=== PATIENT | male | born 1955 | race Caucasian/White ===

== ENCOUNTER → 2016-08-07 | Outpatient (CLI) | payer SELFPAY ==
--- NOTE | 2016-08-07 16:11 | US ---
ULTRASOUND EXAMINATION OF the left lower extremity WITH DOPPLER HISTORY: Swelling FINDINGS: Examination of the left leg was performed from the groin to the calf region. All visualized segment s including common femoral, proximal greater saphenous, superficial femoral, popliteal and calf vein s appear patent with good compressibility and augmentation. There is no evidence of deep vein throm bosis. IMPRESSION: No evidence of a DVT.
== END ==
LOC: MW.US 14:29
PROVIDERS: ATTEND Student in an Organized Health Care Education/Training Program
DX: R22.42 Localized swelling, mass and lump, left lower limb (principal); M79.662 Pain in left lower leg
CPT/HCPCS: 93971-26-LT; 93971-LT

== ENCOUNTER 2016-12-24 09:39 | Inpatient (IN) | payer MEDICAID ==
--- NOTE | 2016-12-24 09:50 | EDM.PDOC ---
ED HPI GENERAL MEDICAL PROBLEM - General Chief Complaint: Respiratory Problem Stated Complaint: CHEST PAIN Time Seen by Provider: 12/24/16 09:49 Source of Information: Reports: Patient - History of Present Illness INITIAL COMMENTS - FREE TEXT/NARRATIVE: HISTORY AND PHYSICAL: History of present illness: []Patient presents with cough shortness of breath and blood-tinged sputum worsening over the last couple of days, he has been camping sleeping on the ground and [place] No fever nausea vomiting his diaphoretic with chest pain no radiation to arm neck or jaw Review of systems: As per history of present illness and below otherwise all systems reviewed and negative. Past medical history: As per history of present illness and as reviewed below otherwise noncontributory. Surgical history: As per history of present illness and as reviewed below otherwise noncontributory. Social history: No reported history of drug or alcohol abuse. Family history: As per history of present illness and as reviewed below otherwise noncontributory. Physical exam: HEENT: Atraumatic, normocephalic, pupils reactive, negative for conjunctival pallor or scleral icterus, mucous membranes moist, throat clear, neck supple, nontender, trachea midline. Lungs: Clear to auscultation, breath sounds equal bilaterally, chest nontender. Heart: S1S2, regular, negative for clicks, rubs, or JVD. Abdomen: Soft, nondistended, nontender. Negative for masses or hepatosplenomegaly. Negative for costovertebral tenderness. Pelvis: Stable nontender. Genitourinary: Deferred. Rectal: Deferred. Extremities: Atraumatic, negative for cords or calf pain. Neurovascular unremarkable. Neuro: Awake, alert, oriented. Cranial nerves II through XII unremarkable. Cerebellum unremarkable. Motor and sensory unremarkable throughout. Exam nonfocal. Diagnostics: []Lab as below EKG Chest 1 view Therapeutics: []Normal saline 1 25 mL per hour Nitroglycerin 3 Impression: Hypoxia--84% on room air []Hemoptysis Hypertensive emergency Chest pain resolved Right lower lobe pneumonia Patient admitted to [facility] inpatient Definitive disposition and diagnosis as appropriate pending reevaluation and review of above. lung Pain Score (Numeric/FACES): 5 - Related Data Allergies Allergy/AdvReac Type Severity Reaction Status Date / Time No Known Allergies Allergy Verified 06/01/16 09:45 Home Meds: Home Meds . [No Known Home Meds] 06/01/16 [History] Past Medical History HEENT History: Reports: None Cardiovascular History: Reports: Heart Murmur, High Cholesterol, Hypertension Respiratory History: Reports: None Gastrointestinal History: Reports: None Genitourinary History: Reports: None Musculoskeletal History: Reports: Back Pain, Chronic Neurological History: Reports: None Psychiatric History: Reports: None Endocrine/Metabolic History: Reports: None Hematologic History: Reports: None Immunologic History: Reports: None Oncologic (Cancer) History: Reports: None Dermatologic History: Reports: None - Infectious Disease History Infectious Disease History: Reports: Chicken Pox, Measles - Past Surgical History Musculoskeletal Surgical History: Reports: Other (See Below) Social & Family History - Family History Family Medical History: Noncontributory - Tobacco Use Smoking Status *Q: Never Smoker Second Hand Smoke Exposure: Yes - Caffeine Use Caffeine Use: Reports: None - Recreational Drug Use Recreational Drug Use: No ED ROS GENERAL - Review of Systems Review Of Systems: ROS reveals no pertinent complaints other than HPI. ED EXAM, GENERAL - Physical Exam Exam: See Below Course - Vital Signs Last Recorded V/S: Last Vital Signs Temp 35.8 C 12/24/16 09:50 Pulse 128 H 12/24/16 09:50 Resp 24 H 12/24/16 09:50 BP 187/106 H 12/24/16 10:45 Pulse Ox 86 L 12/24/16 09:50 - Orders/Labs/Meds Orders: Active Orders 24 hr Category Date Time Status EKG Documentation Completion [RC] STAT Care 12/24/16 09:40 Active EKG Documentation Completion [RC] STAT Care 12/24/16 11:04 Ordered RT Aerosol Therapy [RC] ASDIRECTED Care 12/24/16 09:53 Active CULTURE BLOOD [BC] Stat Lab 12/24/16 10:43 Ordered CULTURE BLOOD [BC] Stat Lab 12/24/16 10:43 Ordered LACTIC ACID,WHOLE BLOOD [BG] Stat Lab 12/24/16 11:01 Ordered UA W/MICROSCOPIC [URIN] Stat Lab 12/24/16 09:48 Uncollected Levofloxacin/Dextrose 5%-Water [Levaquin in D5W 750 MG/ Med 12/24/16 10:42 Active 150 ML] 750 mg Premix Bag 1 bag IV ONETIME Sodium Chloride 0.9% [Normal Saline] 1,000 ml Med 12/24/16 10:00 Active IV STAT Blood Culture x2 Reflex Set [OM.PC] Stat Oth 12/24/16 10:43 Ordered Medication Orders Sodium Chloride (Normal Saline) 1,000 mls @ 125 mls/hr IV STAT CHECO Last Admin: 12/24/16 10:22 Dose: 125 mls/hr Levofloxacin/Dextrose 750 mg/ (Premix) 150 mls @ 100 mls/hr IV ONETIME ONE Stop: 12/24/16 12:11 Last Admin: 12/24/16 10:48 Dose: 100 mls/hr Labs: Laboratory Tests 12/24/16 12/24/16 12/24/16 Range/Units 10:03 10:03 10:03 WBC 12.57 H (4.0-11.0) K/uL RBC 5.29 (4.50-5.90) M/uL Hgb 17.1 H (13.0-17.0) g/dL Hct 48.1 (38.0-50.0) % MCV 90.9 (80.0-98.0) fL MCH 32.3 H (27.0-32.0) pg MCHC 35.6 (31.0-37.0) g/dL RDW Std Deviation 43.7 (28.0-62.0) fl RDW Coeff of Julian 13 (11.0-15.0) % Plt Count 319 (150-400) K/uL MPV 9.30 (7.40-12.00) fL Neut % (Auto) 70.9 (48.0-80.0) % Lymph % (Auto) 20.3 (16.0-40.0) % [place] % (Auto) 7.2 (0.0-15.0) % Eos % (Auto) 1.0 (0.0-7.0) % Baso % (Auto) 0.6 (0.0-1.5) % Neut # (Auto) 8.9 H (1.4-5.7) K/uL Lymph # (Auto) 2.6 H (0.6-2.4) K/uL [place] # (Auto) 0.9 H (0.0-0.8) K/uL Eos # (Auto) 0.1 (0.0-0.7) K/uL Baso # (Auto) 0.1 (0.0-0.1) K/uL Nucleated RBC % 0.0 /100WBC Nucleated RBCs # 0 K/uL INR 0.98 (0.86-1.11) ABG pH (7.35-7.45) ABG pCO2 (35-45) mmHG ABG pO2 (75-100) mmHG ABG HCO3 (22-26) mEq/L ABG Total CO2 ABG Base Excess (-2.0-2.0) Sodium 141 (136-146) mmol/L Potassium 3.4 L (3.5-5.1) mmol/L Chloride 104 (98-110) mmol/L Carbon Dioxide 24 (21-31) mmol/L BUN 6 (6.0-23.0) mg/dL Creatinine 0.9 (0.6-1.5) mg/dL Est Cr Clr Drug Dosing 92.96 mL/min Estimated GFR (MDRD) > 60.0 ml/min Glucose 130 H (60-110) mg/dL Calcium 9.3 (8.8-10.8) mg/dL Total Bilirubin 0.4 (0.1-1.5) mg/dL AST 83 H (5-40) IU/L ALT 82 H (8-54) IU/L Alkaline Phosphatase 103 (40-150) Creatine Kinase 181 (9-236) IU/L CK-MB (CK-2) 2.2 (0-6.6) ng/ml Troponin I (0.0-0.29) NG/ML Total Protein 7.9 (6.0-8.0) g/dL Albumin 4.0 (3.4-4.8) g/dL Globulin 3.9 H (2.0-3.5) g/dL Albumin/Globulin Ratio 1.0 L (1.3-2.8) 12/24/16 12/24/16 Range/Units 10:03 10:13 WBC (4.0-11.0) K/uL RBC (4.50-5.90) M/uL Hgb (13.0-17.0) g/dL Hct (38.0-50.0) % MCV (80.0-98.0) fL MCH (27.0-32.0) pg MCHC (31.0-37.0) g/dL RDW Std Deviation (28.0-62.0) fl RDW Coeff of Julian (11.0-15.0) % Plt Count (150-400) K/uL MPV (7.40-12.00) fL Neut % (Auto) (48.0-80.0) % Lymph % (Auto) (16.0-40.0) % [place] % (Auto) (0.0-15.0) % Eos % (Auto) (0.0-7.0) % Baso % (Auto) (0.0-1.5) % Neut # (Auto) (1.4-5.7) K/uL Lymph # (Auto) (0.6-2.4) K/uL [place] # (Auto) (0.0-0.8) K/uL Eos # (Auto) (0.0-0.7) K/uL Baso # (Auto) (0.0-0.1) K/uL Nucleated RBC % /100WBC Nucleated RBCs # K/uL INR (0.86-1.11) ABG pH 7.357 (7.35-7.45) ABG pCO2 43 (35-45) mmHG ABG pO2 74 L (75-100) mmHG ABG HCO3 24 (22-26) mEq/L ABG Total CO2 21.0 ABG Base Excess -1.3 (-2.0-2.0) Sodium (136-146) mmol/L Potassium (3.5-5.1) mmol/L Chloride (98-110) mmol/L Carbon Dioxide (21-31) mmol/L BUN (6.0-23.0) mg/dL Creatinine (0.6-1.5) mg/dL Est Cr Clr Drug Dosing mL/min Estimated GFR (MDRD) ml/min Glucose (60-110) mg/dL Calcium (8.8-10.8) mg/dL Total Bilirubin (0.1-1.5) mg/dL AST (5-40) IU/L ALT (8-54) IU/L Alkaline Phosphatase (40-150) Creatine Kinase (9-236) IU/L CK-MB (CK-2) (0-6.6) ng/ml Troponin I < 0.10 (0.0-0.29) NG/ML Total Protein (6.0-8.0) g/dL Albumin (3.4-4.8) g/dL Globulin (2.0-3.5) g/dL Albumin/Globulin Ratio (1.3-2.8) Meds: Medications Generic Name Dose Route Start Last Admin Trade Name Freq PRN Reason Stop Dose Admin Sodium Chloride 1,000 mls @ 125 mls/hr 12/24/16 10:00 12/24/16 10:22 Normal Saline IV 125 mls/hr STAT CHECO Administration Levofloxacin/Dextrose 750 mg/ 150 mls @ 100 mls/hr 12/24/16 10:42 12/24/16 10 :48 Premix IV 12/24/16 12:11 100 mls/hr ONETIME ONE Administration Discontinued Medications Generic Name Dose Route Start Last Admin Trade Name Mitchelq PRN Reason Stop Dose Admin Albuterol/Ipratropium 3 ml 12/24/16 09:53 12/24/16 10:14 Duoneb 3.0-0.5 Mg/3 Ml NEB 12/24/16 09:54 3 ml ONETIME ONE Administration Methylprednisolone Sodium Succinate 125 mg 12/24/16 09:53 12/24/16 10:14 Solu-Medrol IVPUSH 12/24/16 09:54 125 mg ONETIME ONE Administration Nitroglycerin 0.4 mg 12/24/16 10:02 12/24/16 10:45 Nitrostat SL 12/24/16 10:13 0.4 mg Q5M PRN Administration Chest Pain Departure - Departure Time of Disposition: 11:07 Disposition: Admitted As Inpatient 67 Condition: Poor Clinical Impression: Hypoxia, Pneumonia - Discharge Information Forms: ED Department Discharge - My Orders Last 24 Hours: My Active Orders 12/24/16 09:40 EKG Documentation Completion [RC] STAT 12/24/16 09:48 UA W/MICROSCOPIC [URIN] Stat 12/24/16 09:53 RT Aerosol Therapy [RC] ASDIRECTED 12/24/16 10:00 Sodium Chloride 0.9% [Normal Saline] 1,000 ml IV STAT 12/24/16 10:42 Levofloxacin/Dextrose 5%-Water [Levaquin in D5W 750 MG/150 ML] 750 mg Premix Bag 1 bag IV ONETIME 12/24/16 10:43 CULTURE BLOOD [BC] Stat CULTURE BLOOD [BC] Stat Blood Culture x2 Reflex Set [OM.PC] Stat 12/24/16 11:01 LACTIC ACID,WHOLE BLOOD [BG] Stat 12/24/16 11:04 EKG Documentation Completion [RC] STAT - Assessment/Plan Last 24 Hours: My Active Orders 12/24/16 09:40 EKG Documentation Completion [RC] STAT 12/24/16 09:48 UA W/MICROSCOPIC [URIN] Stat 12/24/16 09:53 RT Aerosol Therapy [RC] ASDIRECTED 12/24/16 10:00 Sodium Chloride 0.9% [Normal Saline] 1,000 ml IV STAT 12/24/16 10:42 Levofloxacin/Dextrose 5%-Water [Levaquin in D5W 750 MG/150 ML] 750 mg Premix Bag 1 bag IV ONETIME 12/24/16 10:43 CULTURE BLOOD [BC] Stat CULTURE BLOOD [BC] Stat Blood Culture x2 Reflex Set [OM.PC] Stat 12/24/16 11:01 LACTIC ACID,WHOLE BLOOD [BG] Stat 12/24/16 11:04 EKG Documentation Completion [RC] STAT
[2016-12-24] MEDS ORDERED: Albuterol/Ipratropium 3.0-0.5 MG/3 ML Neb Soln NEB ONE (09:53)
[2016-12-24] MEDS ORDERED: methylPREDNISolone Sodium Succinate 125 MG/2 ML SDV IVPUSH ONE (09:53)
[2016-12-24] MEDS ORDERED: Sodium Chloride 0.9% 1,000 ML IV SCH ×2 (10:00→22:15)
[2016-12-24] MEDS: Nitroglycerin 0.4 MG Tab.SL SL PRN ×2 (10:21→10:45)
[2016-12-24 10:40] LABS: CHLORIDE,CL 104 mmol/L (98-110); SODIUM,NA 141 mmol/L (136-146)
[2016-12-24] MEDS ORDERED: Levofloxacin/Dextrose 5%-Water 750 MG in Premix Bag 1 BAG IV ONE (10:42)
--- NOTE | 2016-12-24 11:02 | CR ---
Single view portable chest There is myocardium equally. There is a small left pleural effusion. There is abnormal interstitial density in lower two thirds of both lungs. The findings are consistent with acute congestive heart f ailure. Impression: Acute congestive heart failure with interstitial edema
[2016-12-24] MEDS ORDERED: Ondansetron 4 MG Tab.DIS PO PRN (11:50)
[2016-12-24] MEDS ORDERED: Acetaminophen 325 MG Tab PO PRN (11:50)
[2016-12-24] MEDS ORDERED: Albuterol 0.083% 2.5 MG/3 ML Neb Soln NEB PRN (11:50)
[2016-12-24] MEDS ORDERED: LORazepam 2 MG/ML MDV IVPUSH ONE (11:58)
[2016-12-24] MEDS ORDERED: Lisinopril 5 MG Tab PO SCH (12:00)
[2016-12-24] MEDS ORDERED: Furosemide 40 MG/4 ML VIAL IVPUSH ONE (12:15)
[2016-12-24] MEDS ORDERED: Magnesium Sulfate/Water 2 GM in Premix Bag 1 BAG IV ONE (12:33)
[2016-12-24] MEDS: Folic Acid 1 MG Tab PO SCH (13:37)
[2016-12-24] MEDS: Albuterol 0.083% 2.5 MG/3 ML Neb Soln NEB SCH ×3 (13:38→23:40)
[2016-12-24] MEDS: Nicotine 21 MG/24 Hr Patch TRDERM SCH (13:45)
[2016-12-24] MEDS: Levofloxacin/Dextrose 5%-Water 750 MG in Premix Bag 1 BAG IV SCH (13:55)
[2016-12-24] MEDS ORDERED: LORazepam 2 MG/ML MDV IVPUSH PRN (13:59)
[2016-12-24] MEDS ORDERED: Potassium Chloride 20 MEQ Tab.ER PO ONE (15:12)
[2016-12-24] MEDS ORDERED: Enalaprilat 1.25 MG/ML SDV IVPUSH ONE (16:25)
--- NOTE | 2016-12-24 16:54 | PCM.HP ---
H&P History of Present Illness - General Date of Service: 12/24/16 Admit Problem/Dx: Shortness of breath Source of Information: Patient History Limitations: Reports: No Limitations - History of Present Illness Initial Comments - Free Text/Narative: 61-year-old male with a medical history of hypercholesterolemia, hypertension and chronic back pain but is not taking any medications for these conditions is being admitted for worsening shortness of breath and chest pain over the last few days. patient presented to the emergency room today complaining of chest pain and was found to have a blood pressure of 238/153. He was also complaining of shortness of breath and a few episodes of hemoptysis. He states that he's been camping in [place] and believes he may have inhaled something. patient has never had prior episodes of shortness of breath or this type of chest pain. the chest pain does not radiate and is diffuse. he denies any history of gastric ulcers and denies bleeding elsewhere apart from his hemoptysis. he has been febrile but denies any nausea, vomiting, constipation, diarrhea. He also notes that his legs bilaterally appear slightly more swollen than they typically are. He was diagnosed with cellulitis a few weeks ago but is not currently taking any antibiotics. He denies any pain in his legs. Patient does smoke one pack of cigarettes a week and does drink a sixpack of beer a night. He is not on oxygen at home. He has no prior diagnosis of COPD or asthma. patient does live in [place]. ER course: Patient was started on normal saline at 125 mL/hour. He was given nitroglycerin 3 which result is chest pain and improved his blood pressure to 187/106. his oxygen saturation on room air was 84% and was placed on a nonrebreather. chest x -ray was read as showing acute congestive heart failure with interstitial edema by the radiologist. patient does have a white blood cell count and given the x- ray findings he was given a one-time dose of Levaquin to treat for possible pneumonia. He was also given a DuoNeb treatment. He was given a onetime dose of Solu-Medrol. blood cultures were obtained. White blood cell count was elevated at 12.6 and hemoglobin was 17.1. INR was within normal range at 0.98. ABG was normal apart from a PO2 of 74. urinalysis was unremarkale. Initial troponin was negative. AST and ALT were slightly elevated at 83 and 82 respectively. lactate was elevated at 2.1. EKG initially showed an acute AK but the patient is breathing very heavily and appeared to be in respiratory distress. Repeat EKG shows left bundle branch block. lung Pain Score (Numeric/FACES): 0 - Related Data Allergies/Adverse Reactions: Allergies Allergy/AdvReac Type Severity Reaction Status Date / Time No Known Allergies Allergy Verified 06/01/16 09:45 Home Medications: Home Meds . [No Known Home Meds] 06/01/16 [History] Past Medical History HEENT History: Reports: None Cardiovascular History: Reports: Heart Murmur, High Cholesterol, Hypertension Respiratory History: Reports: None Gastrointestinal History: Reports: Hemorrhoids Genitourinary History: Reports: None Musculoskeletal History: Reports: Back Pain, Chronic Neurological History: Reports: None Psychiatric History: Reports: None Endocrine/Metabolic History: Reports: None Hematologic History: Reports: None Immunologic History: Reports: None Oncologic (Cancer) History: Reports: None Dermatologic History: Reports: Cellulitis - Infectious Disease History Infectious Disease History: Reports: Chicken Pox, Measles - Past Surgical History GI Surgical History: Reports: Colonoscopy, Polypectomy Musculoskeletal Surgical History: Reports: Other (See Below) Social & Family History - Family History Family Medical History: Noncontributory - Tobacco Use Smoking Status *Q: Current Some Day Smoker Years of Tobacco use: 8 Packs/Tins Daily: 0 Second Hand Smoke Exposure: Yes - Caffeine Use Caffeine Use: Reports: Coffee - Alcohol Use Days Per Week of Alcohol Use: 7 Number of Drinks Per Day: 6 Total Drinks Per Week: 42 Date of Last Drink: 12/23/16 - Recreational Drug Use Recreational Drug Use: Yes Drug Use in Last 12 Months: Yes Recreational Drug Type: Reports: Marijuana/Hashish Recreational Drug Use Frequency: Weekly H&P Review of Systems - Review of Systems: Review Of Systems: See Below General: Reports: Fever, Diaphoresis HEENT: Reports: No Symptoms Pulmonary: Reports: Shortness of Breath, Cough, Hemoptysis Cardiovascular: Reports: Chest Pain, Dyspnea on Exertion, Edema ( lower eextremities bilaterally), Blood Pressure Problem Gastrointestinal: Reports: No Symptoms Genitourinary: Reports: No Symptoms Musculoskeletal: Reports: No Symptoms Skin: Reports: Diaphoresis Psychiatric: Reports: No Symptoms Neurological: Reports: No Symptoms Hematologic/Lymphatic: Reports: No Symptoms Immunologic: Reports: No Symptoms Exam - Exam Exam: See Below - Vital Signs Vital Signs: Last Vital Signs Temp 97.3 F 12/24/16 15:51 Pulse 101 H 12/24/16 15:51 Resp 22 H 12/24/16 15:51 BP 180/91 H 12/24/16 16:34 Pulse Ox 95 12/24/16 15:51 Weight: 284 lb 1.6 oz - Exam Quality Assessment: Supplemental Oxygen ( nonrebbreather), DVT Prophylaxis ( sequentiial compression devices) General: Alert, Oriented, Cooperative, Mild Distress HEENT: Conjunctiva Clear, Hearing Intact, Mucosa Moist & Dana, Nares Patent, Posterior Pharynx Clear, PERRLA Neck: Supple, Trachea Midline, 2 Lungs: Wheezing, Other ( diminishhed breath sounds bilaterally with mild wheezing appreciated in the right upper lobe. increased work of breathing appreciated.) Cardiovascular: Regular Rhythm, Tachycardia GI/Abdominal Exam: Normal Bowel Sounds, Soft, Non-Tender, No Organomegaly, No Distention, No Abnormal Bruit, No Mass Back Exam: Normal Inspection Extremities: Normal Inspection, Normal Range of Motion, Non-Tender, Normal Capillary Refill, Other ( trace edema in the lower extremities bilaterally.) Peripheral Pulses: 2+: Radial (L), Radial (R), Posterior Tibial (L), Posterior Tibial (R) Skin: Warm, Dry, Intact Neuro Extensive - Mental Status: Alert, Oriented x3, Normal Cognition Psychiatric: Alert - Patient Data Lab Results Last 24 hrs: Laboratory Results - last 24 hr 12/24/16 12/24/16 Range/Units 15:54 15:54 Lactate 2.9 H (0.20-2.00) mmol/L Troponin I < 0.10 (0.0-0.29) NG/ML Result Diagrams: 12/24/16 10:03 12/24/16 10:03 *Q Meaningful Use (ADM) - VTE *Q VTE Criteria *Q: - Stroke *Q Stroke Criteria *Q: - AMI *Q AMI Criteria *Q: - Problem List (1) Congestive heart failure SNOMED Code(s): 98893696 ICD Code: I50.9 - HEART FAILURE, UNSPECIFIED Status: Acute Current Visit : Yes (2) Hypoxia SNOMED Code(s): 117197932, 002750103 ICD Code: R09.02 - HYPOXEMIA Status: Acute Current Visit: Yes (3) Pneumonia SNOMED Code(s): 530315486 ICD Code: J18.9 - PNEUMONIA, UNSPECIFIED ORGANISM Status: Acute Current Visit: Yes Problem List Initiated/Reviewed/Updated: Yes Orders Last 24hrs: Active Orders 24 hr Category Date Time Status Antiembolic Devices [RC] PER UNIT ROUTINE Care 12/24/16 11:53 Active Height and Weight [RC] DAILY Care 12/24/16 11:50 Active Intake and Output Strict [RC] ASDIRECTED Care 12/24/16 14:50 Active Intake and Output [RC] QSHIFT Care 12/24/16 11:50 Active Notify Provider Vital Signs [RC] ASDIRECTED Care 12/24/16 11:50 Active Oxygen Therapy [RC] PRN Care 12/24/16 11:50 Active Pulse Oximetry [RC] PRN Care 12/24/16 11:50 Active RT Aerosol Therapy [RC] ASDIRECTED Care 12/24/16 11:53 Active Telemetry Monitoring [Cardiac Monitoring] [RC] Q8H Care 12/24/16 11:57 Active Up With Assistance [RC] ASDIRECTED Care 12/24/16 11:50 Active VTE/DVT Education [RC] PER UNIT ROUTINE Care 12/24/16 11:50 Active Vital Signs [RC] Q4H Care 12/24/16 11:50 Active Regular Diet [DIET] Diet 12/24/16 Breakfast Active Echo Comp wo Cont [US] Stat Exams 12/24/16 11:50 Taken CBC WITH AUTO DIFF [HEME] AM Lab 12/25/16 05:11 Ordered CBC WITH AUTO DIFF [HEME] AM Lab 12/26/16 05:11 Ordered CBC WITH AUTO DIFF [HEME] AM Lab 12/27/16 05:11 Ordered COMPREHENSIVE METABOLIC PN,CMP [CHEM] AM Lab 12/25/16 05:11 Ordered COMPREHENSIVE METABOLIC PN,CMP [CHEM] AM Lab 12/26/16 05:11 Ordered COMPREHENSIVE METABOLIC PN,CMP [CHEM] AM Lab 12/27/16 05:11 Ordered LACTIC ACID,WHOLE BLOOD [BG] Routine Lab 12/24/16 22:00 Ordered MAGNESIUM [CHEM] AM Lab 12/25/16 05:11 Ordered MAGNESIUM [CHEM] AM Lab 12/26/16 05:11 Ordered MAGNESIUM [CHEM] AM Lab 12/27/16 05:11 Ordered TROPONIN I [CHEM] Q6H Lab 12/24/16 22:00 Ordered Acetaminophen [Tylenol] Med 12/24/16 11:50 Active 650 mg PO Q4H PRN Albuterol [Proventil Neb Soln] Med 12/24/16 12:00 Active 2.5 mg NEB Q6HRRT Folic Acid Med 12/24/16 12:45 Active 1 mg PO DAILY LORazepam [Ativan] Med 12/24/16 13:59 Active See Protocol IVPUSH Q4H PRN Levofloxacin/Dextrose 5%-Water [Levaquin in D5W 750 MG/ Med 12/24/16 12:00 Active 150 ML] 750 mg Premix Bag 1 bag IV Q24H Lisinopril [Prinivil] Med 12/24/16 12:00 Active 5 mg PO DAILY Nicotine [Habitrol] Med 12/24/16 12:00 Active 21 mg TRDERM DAILY Ondansetron [Zofran ODT] Med 12/24/16 11:50 Active 4 mg PO Q4H PRN Thiamine [Vitamin B-1] Med 12/24/16 21:00 Active 100 mg PO BEDTIME methylPREDNISolone Sod Succ [Solu-MEDROL] Med 12/24/16 16:45 Active 125 mg IVPUSH Q6H Sequential Compression Device [OM.PC] Per Unit Routine Oth 12/24/16 11:50 Ordered Resuscitation Status Routine Resus Stat 12/24/16 11:50 Ordered Medication Orders Acetaminophen (Tylenol) 650 mg PO Q4H PRN PRN Reason: Pain (Mild 1-3)/fever Albuterol (Proventil Neb Soln) 2.5 mg NEB Q6HRRT [facility] Last Admin: 12/24/16 13:38 Dose: 2.5 mg Folic Acid (Folic Acid) 1 mg PO DAILY [facility] Last Admin: 12/24/16 13:37 Dose: 1 mg Levofloxacin/Dextrose 750 mg/ (Premix) 150 mls @ 100 mls/hr IV Q24H [facility] Last Admin: 12/24/16 13:55 Dose: Not Given Lisinopril (Prinivil) 5 mg PO DAILY [facility] Last Admin: 12/24/16 13:35 Dose: 5 mg Lorazepam (Ativan) 0 mg IVPUSH Q4H PRN; Protocol PRN Reason: CIWAA Methylprednisolone Sodium Succinate (Solu-Medrol) 125 mg IVPUSH Q6H [facility] Nicotine (Habitrol) 21 mg TRDERM DAILY [facility] Last Admin: 12/24/16 13:45 Dose: 21 mg Ondansetron HCl (Zofran Odt) 4 mg PO Q4H PRN PRN Reason: nausea, able to take PO Thiamine HCl (Vitamin B-1) 100 mg PO BEDTIME [facility] Assessment/Plan Comment:: 61-year-old male admitted in respiratory distress with the chief complaint of chest pain. #1. hypoxia secondary to multiple possible causes including acute CHF exacerbation , pneumonia , COPD : patient does not have any prior diagnoses of CHF or COPD. chest x-ray in the emergency room was read as acute CHF exacerbation with interstitial edema. - patient is currently requiring supplemental oxygen via nasal cannula. - he is receiving IV Levaquin for possible pneumonia versus COPD exacerbaion. patient does have an elevated white count at 12.6. - duo nebs scheduled every 2 hours. - IV methylprednisolone every 6 hours. - BNP is mildly elevated at 296. - echocardiogram is pending. - initial troponin was negative. we will trend his troponins. #2. Lactic acidosis: initial lactate was 2.1. Repeat lactate is 2.9. we will trend his lactate every 6 hours until less than 2. - Patient not currently receiving IV fluids secondary to possible CHF exacerbation as read by the radiologist on chest x-ray. - blood cultures are pending. #3. alcohol abuse: patient drinks a sixpack of beer/night. Ativan is available IV per [facility] PROTOCOL. - patient placed on thiamine and folic acid. #4. hypertension: patient's blood pressure is severely elevated with systolics greater than 200 and diastolics greater than 100. placed on by mouth lisinopril 5 mg daily. can consider IV antihypertensives as needed. #5. EKG showing left bundle branch block: initial troponin was negative. we are trending his troponins. - chest pain resolved in the ER with nitroglycerin sublingual 3. discharge: 2-4 days pending improvement.
[2016-12-24] MEDS: methylPREDNISolone Sodium Succinate 125 MG/2 ML SDV IVPUSH SCH ×2 (17:09→21:45)
[2016-12-24] MEDS: Thiamine 100 MG Tab PO SCH (21:45)
[2016-12-25] MEDS: methylPREDNISolone Sodium Succinate 125 MG/2 ML SDV IVPUSH SCH ×4 (03:55→23:23)
[2016-12-25 04:13] LABS: CHLORIDE,CL 100 mmol/L (98-110); SODIUM,NA 136 mmol/L (136-146)
[2016-12-25] MEDS ORDERED: Sodium Chloride 0.9% 500 ML IV SCH (05:30)
[2016-12-25] MEDS: Albuterol 0.083% 2.5 MG/3 ML Neb Soln NEB SCH ×4 (05:40→23:30)
[2016-12-25] MEDS: Piperacillin/Tazobactam 3.375 GM in Sodium Chloride 0.9% 50 ML IV SCH ×4 (05:41→23:36)
[2016-12-25] MEDS: Sodium Chloride 0.9% 1,000 ML IV SCH ×2 (05:44→15:39)
[2016-12-25] MEDS: Vancomycin 2 GM in Sodium Chloride 0.9% 500 ML IV SCH ×2 (06:18→18:02)
--- NOTE | 2016-12-25 09:12 | PCM.PN ---
- Review of Systems Systems Review Comment:: breathing and cough has improved. - Patient Data Vitals - Most Recent: Last Vital Signs Temp 36.4 C 12/25/16 08:00 Pulse 102 H 12/25/16 08:00 Resp 20 12/25/16 08:00 BP 181/86 H 12/25/16 08:00 Pulse Ox 97 12/25/16 08:00 Weight - Most Recent: 128.866 kg I&O - Last 24 Hours: Intake & Output 12/24/16 12/25/16 12/25/16 22:59 06:59 14:59 Intake Total 588 1600 Output Total 950 Balance 588 650 Lab Results Last 24 Hours: Laboratory Results - last 24 hr 12/24/16 12/24/16 12/24/16 Range/Units 15:54 15:54 21:40 WBC (4.0-11.0) K/uL RBC (4.50-5.90) M/uL Hgb (13.0-17.0) g/dL Hct (38.0-50.0) % MCV (80.0-98.0) fL MCH (27.0-32.0) pg MCHC (31.0-37.0) g/dL RDW Std Deviation (28.0-62.0) fl RDW Coeff of Julian (11.0-15.0) % Plt Count (150-400) K/uL MPV (7.40-12.00) fL Neut % (Auto) (48.0-80.0) % Lymph % (Auto) (16.0-40.0) % Dane % (Auto) (0.0-15.0) % Eos % (Auto) (0.0-7.0) % Baso % (Auto) (0.0-1.5) % Neut # (Auto) (1.4-5.7) K/uL Lymph # (Auto) (0.6-2.4) K/uL Dane # (Auto) (0.0-0.8) K/uL Eos # (Auto) (0.0-0.7) K/uL Baso # (Auto) (0.0-0.1) K/uL Nucleated RBC % /100WBC Nucleated RBCs # K/uL Lactate 2.9 H (0.20-2.00) mmol/L Sodium (136-146) mmol/L Potassium (3.5-5.1) mmol/L Chloride (98-110) mmol/L Carbon Dioxide (21-31) mmol/L BUN (6.0-23.0) mg/dL Creatinine (0.6-1.5) mg/dL Est Cr Clr Drug Dosing mL/min Estimated GFR (MDRD) ml/min Glucose (60-110) mg/dL Calcium (8.8-10.8) mg/dL Magnesium (1.5-2.3) mEq/L Total Bilirubin (0.1-1.5) mg/dL AST (5-40) IU/L ALT (8-54) IU/L Alkaline Phosphatase (40-150) Troponin I < 0.10 < 0.10 (0.0-0.29) NG/ML Total Protein (6.0-8.0) g/dL Albumin (3.4-4.8) g/dL Globulin (2.0-3.5) g/dL Albumin/Globulin Ratio (1.3-2.8) 12/24/16 12/25/16 12/25/16 Range/Units 21:40 03:41 03:41 WBC 15.46 H (4.0-11.0) K/uL RBC 4.64 (4.50-5.90) M/uL Hgb 15.0 (13.0-17.0) g/dL Hct 41.9 (38.0-50.0) % MCV 90.3 (80.0-98.0) fL MCH 32.3 H (27.0-32.0) pg MCHC 35.8 (31.0-37.0) g/dL RDW Std Deviation 43.0 (28.0-62.0) fl RDW Coeff of Julian 13 (11.0-15.0) % Plt Count 337 (150-400) K/uL MPV 9.10 (7.40-12.00) fL Neut % (Auto) 93.2 H (48.0-80.0) % Lymph % (Auto) 5.5 L (16.0-40.0) % Dane % (Auto) 1.2 (0.0-15.0) % Eos % (Auto) 0.0 (0.0-7.0) % Baso % (Auto) 0.1 (0.0-1.5) % Neut # (Auto) 14.4 H (1.4-5.7) K/uL Lymph # (Auto) 0.9 (0.6-2.4) K/uL Dane # (Auto) 0.2 (0.0-0.8) K/uL Eos # (Auto) 0.0 (0.0-0.7) K/uL Baso # (Auto) 0.0 (0.0-0.1) K/uL Nucleated RBC % 0.0 /100WBC Nucleated RBCs # 0 K/uL Lactate 3.5 H (0.20-2.00) mmol/L Sodium 136 (136-146) mmol/L Potassium 3.8 (3.5-5.1) mmol/L Chloride 100 (98-110) mmol/L Carbon Dioxide 24 (21-31) mmol/L BUN 14 (6.0-23.0) mg/dL Creatinine 1.0 (0.6-1.5) mg/dL Est Cr Clr Drug Dosing 83.67 mL/min Estimated GFR (MDRD) > 60.0 ml/min Glucose 248 H (60-110) mg/dL Calcium 8.6 L (8.8-10.8) mg/dL Magnesium 1.5 (1.5-2.3) mEq/L Total Bilirubin 0.6 (0.1-1.5) mg/dL AST 40 (5-40) IU/L ALT 58 H (8-54) IU/L Alkaline Phosphatase 84 (40-150) Troponin I (0.0-0.29) NG/ML Total Protein 6.7 (6.0-8.0) g/dL Albumin 3.7 (3.4-4.8) g/dL Globulin 3.0 (2.0-3.5) g/dL Albumin/Globulin Ratio 1.2 L (1.3-2.8) 12/25/16 Range/Units 03:41 WBC (4.0-11.0) K/uL RBC (4.50-5.90) M/uL Hgb (13.0-17.0) g/dL Hct (38.0-50.0) % MCV (80.0-98.0) fL MCH (27.0-32.0) pg MCHC (31.0-37.0) g/dL RDW Std Deviation (28.0-62.0) fl RDW Coeff of Julian (11.0-15.0) % Plt Count (150-400) K/uL MPV (7.40-12.00) fL Neut % (Auto) (48.0-80.0) % Lymph % (Auto) (16.0-40.0) % Dane % (Auto) (0.0-15.0) % Eos % (Auto) (0.0-7.0) % Baso % (Auto) (0.0-1.5) % Neut # (Auto) (1.4-5.7) K/uL Lymph # (Auto) (0.6-2.4) K/uL Dane # (Auto) (0.0-0.8) K/uL Eos # (Auto) (0.0-0.7) K/uL Baso # (Auto) (0.0-0.1) K/uL Nucleated RBC % /100WBC Nucleated RBCs # K/uL Lactate 3.8 H (0.20-2.00) mmol/L Sodium (136-146) mmol/L Potassium (3.5-5.1) mmol/L Chloride (98-110) mmol/L Carbon Dioxide (21-31) mmol/L BUN (6.0-23.0) mg/dL Creatinine (0.6-1.5) mg/dL Est Cr Clr Drug Dosing mL/min Estimated GFR (MDRD) ml/min Glucose (60-110) mg/dL Calcium (8.8-10.8) mg/dL Magnesium (1.5-2.3) mEq/L Total Bilirubin (0.1-1.5) mg/dL AST (5-40) IU/L ALT (8-54) IU/L Alkaline Phosphatase (40-150) Troponin I (0.0-0.29) NG/ML Total Protein (6.0-8.0) g/dL Albumin (3.4-4.8) g/dL Globulin (2.0-3.5) g/dL Albumin/Globulin Ratio (1.3-2.8) Med Orders - Current: Current Medications Acetaminophen (Tylenol) 650 mg PO Q4H PRN PRN Reason: Pain (Mild 1-3)/fever Albuterol (Proventil Neb Soln) 2.5 mg NEB Q6HRRT [facility] Last Admin: 12/25/16 05:40 Dose: 2.5 mg Enoxaparin Sodium (Lovenox) 40 mg SUBCUT Q24H [facility]CO Folic Acid (Folic Acid) 1 mg PO DAILY [facility] Last Admin: 12/24/16 13:37 Dose: 1 mg Levofloxacin/Dextrose 750 mg/ (Premix) 150 mls @ 100 mls/hr IV Q24H [facility] Last Admin: 12/24/16 13:55 Dose: Not Given Piperacillin Sod/Tazobactam (Sod 3.375 gm/ Sodium Chloride) 50 mls @ 100 mls/ hr IV Q6H [facility] Last Admin: 12/25/16 05:41 Dose: 100 mls/hr Sodium Chloride (Normal Saline) 1,000 mls @ 125 mls/hr IV ASDIRECTED [facility] Last Admin: 12/25/16 05:44 Dose: 125 mls/hr Vancomycin HCl 2 gm/ Sodium (Chloride) 500 mls @ 333.333 mls/hr IV Q12H [facility] Last Infusion: 12/25/16 06:24 Dose: 250 mls/hr Lorazepam (Ativan) 0 mg IVPUSH Q4H PRN; Protocol PRN Reason: CIWAA Methylprednisolone Sodium Succinate (Solu-Medrol) 125 mg IVPUSH Q6H [facility] Last Admin: 12/25/16 03:55 Dose: 125 mg Nicotine (Habitrol) 21 mg TRDERM DAILY [facility] Last Admin: 12/24/16 13:45 Dose: 21 mg Ondansetron HCl (Zofran Odt) 4 mg PO Q4H PRN PRN Reason: nausea, able to take PO Thiamine HCl (Vitamin B-1) 100 mg PO BEDTIME [facility] Last Admin: 12/24/16 21:45 Dose: 100 mg Vancomycin HCl (Pharmacy To Dose - Vancomycin) 1 dose .XX ASDIRECTED [facility] Discontinued Medications Albuterol (Proventil Neb Soln) 2.5 mg NEB Q2H PRN PRN Reason: Shortness Of Breath/wheezing Albuterol/Ipratropium (Duoneb 3.0-0.5 Mg/3 Ml) 3 ml NEB ONETIME ONE Stop: 12/24/16 09:54 Last Admin: 12/24/16 10:14 Dose: 3 ml Enalaprilat (Vasotec Iv) 1.25 mg IVPUSH ONETIME ONE Stop: 12/24/16 16:26 Last Admin: 12/24/16 16:34 Dose: 1.25 mg Furosemide (Lasix) 40 mg IVPUSH NOW ONE Stop: 12/24/16 12:16 Last Admin: 12/24/16 13:38 Dose: 40 mg Sodium Chloride (Normal Saline) 1,000 mls @ 125 mls/hr IV STAT [facility] Last Admin: 12/24/16 10:22 Dose: 125 mls/hr Levofloxacin/Dextrose 750 mg/ (Premix) 150 mls @ 100 mls/hr IV ONETIME ONE Stop: 12/24/16 12:11 Last Admin: 12/24/16 10:48 Dose: 100 mls/hr Magnesium Sulfate 2 gm/ Premix 50 mls @ 50 mls/hr IV ONETIME ONE Stop: 12/24/16 13:32 Last Admin: 12/24/16 13:30 Dose: 50 mls/hr Sodium Chloride (Normal Saline) 1,000 mls @ 125 mls/hr IV ASDIRECTED [facility] Stop: 12/25/16 06:14 Last Admin: 12/24/16 22:19 Dose: 125 mls/hr Sodium Chloride (Normal Saline) 500 mls @ 250 mls/hr IV .BOLUS [facility] Last Admin: 12/25/16 06:06 Dose: Not Given Lisinopril (Prinivil) 5 mg PO DAILY [facility] Last Admin: 12/24/16 13:35 Dose: 5 mg Lorazepam (Ativan) 0 mg IVPUSH ONETIME ONE PRN Reason: Protocol Stop: 12/24/16 11:59 Last Admin: 12/24/16 14:06 Dose: Not Given Methylprednisolone Sodium Succinate (Solu-Medrol) 125 mg IVPUSH ONETIME ONE Stop: 12/24/16 09:54 Last Admin: 12/24/16 10:14 Dose: 125 mg Nitroglycerin (Nitrostat) 0.4 mg SL Q5M PRN PRN Reason: Chest Pain Stop: 12/24/16 10:13 Last Admin: 12/24/16 10:45 Dose: 0.4 mg Potassium Chloride (Klor-Con M20) 40 meq PO ONETIME ONE Stop: 12/24/16 15:13 Last Admin: 12/24/16 16:23 Dose: 40 meq - Exam General: Alert, Oriented Lungs: Wheezing Cardiovascular: Regular Rate, Regular Rhythm Extremities: Normal Inspection, Normal Range of Motion, Non-Tender, Normal Capillary Refill, Pedal Edema (mild) Skin: Warm, Dry, Intact Neurological: No New Focal Deficit - Problem List Review Problem List Initiated/Reviewed/Updated: Yes - My Orders Last 24 Hours: My Active Orders 12/25/16 05:30 Piperacillin/Tazobactam [Piperacil-Tazobact] 3.375 gm Sodium Chloride 0.9% [ Normal Saline] 50 ml IV Q6H Sodium Chloride 0.9% [Normal Saline] 1,000 ml IV ASDIRECTED Vancomycin Pharmacy to Dose [Pharmacy to Dose - Vancomycin] 1 dose .XX ASDIRECTED 12/25/16 06:30 Vancomycin 2 gm Sodium Chloride 0.9% [Normal Saline] 500 ml IV Q12H 12/25/16 08:45 Enoxaparin [Lovenox] 40 mg SUBCUT Q24H 12/25/16 10:00 LACTIC ACID,WHOLE BLOOD [BG] Q6H 12/25/16 16:00 LACTIC ACID,WHOLE BLOOD [BG] Q6H - Plan Plan:: 61-year-old male admitted with pneumonia, new onset CHF, and COPD community acquired pneumonia: treating with levaquin, zosyn and vancomycin, lactic acid is trending up but patient does not appear septic CHF: Echocardiogram reports 25-430% EF with severe generalized hypokinesis of the left ventricle, will keep strict Is and Os. serial cardiac enzymes are negative. will hold on diuresis until improvement in lactic acid. Patient is in no respiratory distress. Alcohol abuse: [place] protocol, thiamin and folic acid.
[2016-12-25] MEDS: Folic Acid 1 MG Tab PO SCH (09:27)
[2016-12-25] MEDS: Nicotine 21 MG/24 Hr Patch TRDERM SCH (09:27)
[2016-12-25] MEDS: Enoxaparin 40 MG/0.4 ML Syringe SUBCUT SCH (09:29)
[2016-12-25] MEDS: Levofloxacin/Dextrose 5%-Water 750 MG in Premix Bag 1 BAG IV SCH (11:59)
[2016-12-25] MEDS ORDERED: hydrALAZINE 20 MG/ML SDV IVPUSH PRN (16:56)
[2016-12-25] MEDS: amLODIPine 5 MG Tab PO SCH (17:31)
[2016-12-25] MEDS: Furosemide 40 MG/4 ML VIAL IVPUSH SCH (17:31)
[2016-12-25] MEDS: Lisinopril 10 MG Tab PO SCH (17:32)
--- NOTE | 2016-12-25 19:02 | CONS ---
DATE OF CONSULTATION: DATE OF : 1955 PRIMARY CARE PHYSICIAN: None PCP REASON FOR CONSULTATION: Cardiomyopathy. HISTORY OF PRESENT ILLNESS: This is a 61-year-old male, history of hypertension, borderline diabetes, current smoking, and hyperlipidemia, presented to the hospital because of being short of breath. An echocardiogram was done in hospital show cardiomyopathy, ejection fraction 25% to 30%. He denied history of heart attack, heart failure, or having cardiac procedure in the past and prior to the [facility], he did not take any medication. He stated that he being short of breath over the past 3 weeks, he noted that when he walks from the door to the garage which is 10 feet distance, he will start being short of breath and he also feels like feverish as well as he is spitting out some mucus with blood but not the frothy sputum. He also noted that when lying down or sleeping, he has to be propped up or steady because he feels more short winded several times during the night time and however, his leg has been unchanged with some swelling. No chest pain, no heart racing, no passing out, no dizziness. No abdominal pain. No nausea. No vomiting. PAST MEDICAL HISTORY: Including hypertension, hyperlipidemia, and diabetes. SOCIAL HISTORY: Currently smoking 2 to 3 cigarettes a day. Drinks beer occasionally and occasional marijuana. FAMILY HISTORY: Mother had a history of heart attack at [place]. He lives in [place], moved here since 2008. Works as implement mechanic, physical job. HOSPITAL COURSE: He was treated as pneumonia as well as possible sepsis; however, his blood pressure has been elevated, today is 190. PHYSICAL EXAMINATION: VITAL SIGNS: Blood pressure 185/90, heart rate of 106, temperature 37.7, O2 saturation 95% on room air, now respiration rate is 20. HEENT: Mild pale. No jaundice. JVD positive, elevated. HEART: Tachycardia. Normal S1, S2. No S3 or gallops. LUNGS: Decreased breath sounds bilaterally with expiratory wheezing with crackles. ABDOMEN: Soft, nontender. Hepatojugular reflux is positive. EXTREMITIES: Legs have 1+ edema. INVESTIGATIONS: CBC showed WBC 12, going up to 15, hematocrit 41, and platelets 337. Lactate is 3.5 going up to 4 coming down to 2.5. Sodium 136, potassium 3.8, chloride 100, bicarb 24, BUN 14, creatinine is 1. Troponin less than 0.1 x3. Hemoculture is no growth, prelim result. MEDICATIONS: Including vancomycin, Levaquin, Zosyn, and Solu-Medrol IV. EKG showed left bundle-branch block pattern. No prior EKG to compare. Echocardiogram, December 2016, show cardiomyopathy probably 30%. No significant valvular regurgitation. ASSESSMENT AND PLAN: This is a 61-year-old male, history of diabetes, hypertension, current smoking, hyperlipidemia, in the hospital with shortness of breath and the chest x-ray showed possible pneumonia and also blunting costophrenic angle. He was being treated for pneumonia as well as chronic obstructive pulmonary disease exacerbation as well because of the wheezing. On my exam, I think he is volume overloaded. I think he had decompensated systolic heart failure. He may have also incidence pneumonia, possible chronic obstructive pulmonary disease exacerbation, however, lean towards more decompensated heart failure. I will give him Lasix 40 mg IV now and schedule twice a day. I will stop IV fluids and I will check a BNP now, and I think his heart rate is tachycardia most likely because of heart failure and I will restrict his oral fluid to 1.5 L regarding his severely elevated high blood pressure. I will start him on lisinopril 10 as well as amlodipine 5 and hydralazine 10 mg IV p.r.n. for systolic blood pressure more than 180. I would check his renal ultrasound for possible renal artery stenosis and currently, ACS has been ruled out. He would eventually need a coronary angiogram, but this can be set up as an outpatient unless he develop acute coronary syndrome. SARAH REBOLLEDO /[id number] ISA
[2016-12-25] MEDS: Thiamine 100 MG Tab PO SCH (20:02)
[2016-12-26 04:17] LABS: CHLORIDE,CL 101 mmol/L (98-110); SODIUM,NA 137 mmol/L (136-146)
[2016-12-26] MEDS: methylPREDNISolone Sodium Succinate 125 MG/2 ML SDV IVPUSH SCH ×2 (05:30→10:02)
[2016-12-26] MEDS: Albuterol 0.083% 2.5 MG/3 ML Neb Soln NEB SCH ×4 (05:31→23:18)
[2016-12-26] MEDS: Piperacillin/Tazobactam 3.375 GM in Sodium Chloride 0.9% 50 ML IV SCH ×2 (05:40→10:38)
[2016-12-26] MEDS: Vancomycin 2 GM in Sodium Chloride 0.9% 500 ML IV SCH ×2 (06:33→17:37)
[2016-12-26] MEDS: Insulin Aspart 100 Units/ML 3 ML Pen SUBCUT SCH ×3 (07:33→17:43)
[2016-12-26] MEDS: amLODIPine 5 MG Tab PO SCH (08:18)
[2016-12-26] MEDS: Lisinopril 10 MG Tab PO SCH (08:19)
[2016-12-26] MEDS: Folic Acid 1 MG Tab PO SCH (08:19)
[2016-12-26] MEDS: Furosemide 40 MG/4 ML VIAL IVPUSH SCH ×2 (08:20→20:18)
[2016-12-26] MEDS: Enoxaparin 40 MG/0.4 ML Syringe SUBCUT SCH (08:25)
[2016-12-26] MEDS: Nicotine 21 MG/24 Hr Patch TRDERM SCH (08:27)
--- NOTE | 2016-12-26 09:05 | PCM.PN ---
- General Info Date of Service: 12/26/16 Admission Dx/Problem (Free Text): 61M HTN pre DM HLP with SOB PNA, COPD, CHF Subjective Update: patient felt ok, no fever good appetite Functional Status: Reports: Pain Controlled - Review of Systems General: Reports: No Symptoms HEENT: Reports: No Symptoms Pulmonary: Reports: Shortness of Breath Cardiovascular: Reports: No Symptoms Gastrointestinal: Reports: No Symptoms Genitourinary: Reports: No Symptoms Musculoskeletal: Reports: No Symptoms Skin: Reports: No Symptoms Neurological: Reports: No Symptoms Psychiatric: Reports: No Symptoms - Patient Data Vitals - Most Recent: Last Vital Signs Temp 37.2 C 12/26/16 08:00 Pulse 92 12/26/16 08:00 Resp 19 12/26/16 08:00 BP 146/94 H 12/26/16 08:19 Pulse Ox 96 12/26/16 08:00 Weight - Most Recent: 131.7 kg I&O - Last 24 Hours: Intake & Output 12/25/16 12/26/16 12/26/16 22:59 06:59 14:59 Intake Total 3737 1358 Output Total 1375 3230 Balance 2362 -1872 Lab Results Last 24 Hours: Laboratory Results - last 24 hr 12/25/16 12/25/16 12/25/16 Range/Units 09:39 16:07 17:15 WBC (4.0-11.0) K/uL RBC (4.50-5.90) M/uL Hgb (13.0-17.0) g/dL Hct (38.0-50.0) % MCV (80.0-98.0) fL MCH (27.0-32.0) pg MCHC (31.0-37.0) g/dL RDW Std Deviation (28.0-62.0) fl RDW Coeff of Julian (11.0-15.0) % Plt Count (150-400) K/uL MPV (7.40-12.00) fL Add Manual Diff Neutrophils % (Manual) (48.0-80.0) % Band Neutrophils % % Lymphocytes % (Manual) (16.0-40.0) % Monocytes % (Manual) (0.0-15.0) % Nucleated RBC % /100WBC Absolute Seg Neuts Band Neutrophils # Lymphocytes # (Manual) Monocytes # (Manual) Nucleated RBCs # K/uL Lactate 4.6 H 2.5 H (0.20-2.00) mmol/L Sodium (136-146) mmol/L Potassium (3.5-5.1) mmol/L Chloride (98-110) mmol/L Carbon Dioxide (21-31) mmol/L BUN (6.0-23.0) mg/dL Creatinine (0.6-1.5) mg/dL Est Cr Clr Drug Dosing mL/min Estimated GFR (MDRD) ml/min Glucose (60-110) mg/dL POC Glucose (60-110) mg/dL Calcium (8.8-10.8) mg/dL Magnesium (1.5-2.3) mEq/L Total Bilirubin (0.1-1.5) mg/dL AST (5-40) IU/L ALT (8-54) IU/L Alkaline Phosphatase (40-150) B-Natriuretic Peptide 164 H (<100) PG/ML Total Protein (6.0-8.0) g/dL Albumin (3.4-4.8) g/dL Globulin (2.0-3.5) g/dL Albumin/Globulin Ratio (1.3-2.8) 12/25/16 12/26/16 12/26/16 Range/Units 21:41 03:45 03:45 WBC 23.43 H (4.0-11.0) K/uL RBC 4.45 L (4.50-5.90) M/uL Hgb 13.9 (13.0-17.0) g/dL Hct 40.6 (38.0-50.0) % MCV 91.2 (80.0-98.0) fL MCH 31.2 (27.0-32.0) pg MCHC 34.2 (31.0-37.0) g/dL RDW Std Deviation 44.0 (28.0-62.0) fl RDW Coeff of Julian 13 (11.0-15.0) % Plt Count 294 (150-400) K/uL MPV 9.30 (7.40-12.00) fL Add Manual Diff YES Neutrophils % (Manual) 88 H (48.0-80.0) % Band Neutrophils % 2 % Lymphocytes % (Manual) 5 L (16.0-40.0) % Monocytes % (Manual) 5 (0.0-15.0) % Nucleated RBC % 0.0 /100WBC Absolute Seg Neuts 20.6 Band Neutrophils # 0.5 Lymphocytes # (Manual) 1.2 Monocytes # (Manual) 1.2 Nucleated RBCs # 0 K/uL Lactate 2.7 H (0.20-2.00) mmol/L Sodium 137 (136-146) mmol/L Potassium 3.4 L (3.5-5.1) mmol/L Chloride 101 (98-110) mmol/L Carbon Dioxide 24 (21-31) mmol/L BUN 20 (6.0-23.0) mg/dL Creatinine 1.1 (0.6-1.5) mg/dL Est Cr Clr Drug Dosing 76.06 mL/min Estimated GFR (MDRD) > 60.0 ml/min Glucose 268 H (60-110) mg/dL POC Glucose (60-110) mg/dL Calcium 8.3 L (8.8-10.8) mg/dL Magnesium 1.5 (1.5-2.3) mEq/L Total Bilirubin 0.4 (0.1-1.5) mg/dL AST 33 (5-40) IU/L ALT 48 (8-54) IU/L Alkaline Phosphatase 75 (40-150) B-Natriuretic Peptide (<100) PG/ML Total Protein 6.1 (6.0-8.0) g/dL Albumin 3.4 (3.4-4.8) g/dL Globulin 2.7 (2.0-3.5) g/dL Albumin/Globulin Ratio 1.3 (1.3-2.8) 12/26/16 12/26/16 Range/Units 03:45 06:43 WBC (4.0-11.0) K/uL RBC (4.50-5.90) M/uL Hgb (13.0-17.0) g/dL Hct (38.0-50.0) % MCV (80.0-98.0) fL MCH (27.0-32.0) pg MCHC (31.0-37.0) g/dL RDW Std Deviation (28.0-62.0) fl RDW Coeff of Julian (11.0-15.0) % Plt Count (150-400) K/uL MPV (7.40-12.00) fL Add Manual Diff Neutrophils % (Manual) (48.0-80.0) % Band Neutrophils % % Lymphocytes % (Manual) (16.0-40.0) % Monocytes % (Manual) (0.0-15.0) % Nucleated RBC % /100WBC Absolute Seg Neuts Band Neutrophils # Lymphocytes # (Manual) Monocytes # (Manual) Nucleated RBCs # K/uL Lactate 3.1 H (0.20-2.00) mmol/L Sodium (136-146) mmol/L Potassium (3.5-5.1) mmol/L Chloride (98-110) mmol/L Carbon Dioxide (21-31) mmol/L BUN (6.0-23.0) mg/dL Creatinine (0.6-1.5) mg/dL Est Cr Clr Drug Dosing mL/min Estimated GFR (MDRD) ml/min Glucose (60-110) mg/dL POC Glucose 189 H (60-110) mg/dL Calcium (8.8-10.8) mg/dL Magnesium (1.5-2.3) mEq/L Total Bilirubin (0.1-1.5) mg/dL AST (5-40) IU/L ALT (8-54) IU/L Alkaline Phosphatase (40-150) B-Natriuretic Peptide (<100) PG/ML Total Protein (6.0-8.0) g/dL Albumin (3.4-4.8) g/dL Globulin (2.0-3.5) g/dL Albumin/Globulin Ratio (1.3-2.8) Med Orders - Current: Current Medications Acetaminophen (Tylenol) 650 mg PO Q4H PRN PRN Reason: Pain (Mild 1-3)/fever Albuterol (Proventil Neb Soln) 2.5 mg NEB Q6HRRT [facility] Last Admin: 12/26/16 05:31 Dose: 2.5 mg Amlodipine Besylate (Norvasc) 5 mg PO DAILY [facility] Last Admin: 12/26/16 08:18 Dose: 5 mg Enoxaparin Sodium (Lovenox) 40 mg SUBCUT Q24H [facility] Last Admin: 12/26/16 08:25 Dose: 40 mg Folic Acid (Folic Acid) 1 mg PO DAILY [facility] Last Admin: 12/26/16 08:19 Dose: 1 mg Furosemide (Lasix) 40 mg IVPUSH BID [facility] Last Admin: 12/26/16 08:20 Dose: 40 mg Hydralazine HCl (Apresoline) 10 mg IVPUSH Q6H PRN PRN Reason: Hypertension Levofloxacin/Dextrose 750 mg/ (Premix) 150 mls @ 100 mls/hr IV Q24H [facility] Last Admin: 12/25/16 11:59 Dose: 100 mls/hr Piperacillin Sod/Tazobactam (Sod 3.375 gm/ Sodium Chloride) 50 mls @ 100 mls/ hr IV Q6H [facility] Last Admin: 12/26/16 05:40 Dose: 100 mls/hr Vancomycin HCl 2 gm/ Sodium (Chloride) 500 mls @ 333.333 mls/hr IV Q12H [facility] Last Admin: 12/26/16 06:33 Dose: 333.3 mls/hr Insulin Aspart (Novolog) 0 unit SUBCUT TIDAC [facility] PRN Reason: Protocol Last Admin: 12/26/16 07:33 Dose: 1 unit Lisinopril (Prinivil) 10 mg PO DAILY [facility] Last Admin: 12/26/16 08:19 Dose: 10 mg Lorazepam (Ativan) 0 mg IVPUSH Q4H PRN; Protocol PRN Reason: CIWAA Methylprednisolone Sodium Succinate (Solu-Medrol) 125 mg IVPUSH Q6H [facility] Last Admin: 12/26/16 05:30 Dose: 125 mg Nicotine (Habitrol) 21 mg TRDERM DAILY [facility] Last Admin: 12/26/16 08:27 Dose: Not Given Ondansetron HCl (Zofran Odt) 4 mg PO Q4H PRN PRN Reason: nausea, able to take PO Thiamine HCl (Vitamin B-1) 100 mg PO BEDTIME [facility] Last Admin: 12/25/16 20:02 Dose: 100 mg Vancomycin HCl (Pharmacy To Dose - Vancomycin) 1 dose .XX ASDIRECTED [facility] Discontinued Medications Albuterol (Proventil Neb Soln) 2.5 mg NEB Q2H PRN PRN Reason: Shortness Of Breath/wheezing Albuterol/Ipratropium (Duoneb 3.0-0.5 Mg/3 Ml) 3 ml NEB ONETIME ONE Stop: 12/24/16 09:54 Last Admin: 12/24/16 10:14 Dose: 3 ml Enalaprilat (Vasotec Iv) 1.25 mg IVPUSH ONETIME ONE Stop: 12/24/16 16:26 Last Admin: 12/24/16 16:34 Dose: 1.25 mg Furosemide (Lasix) 40 mg IVPUSH NOW ONE Stop: 12/24/16 12:16 Last Admin: 12/24/16 13:38 Dose: 40 mg Sodium Chloride (Normal Saline) 1,000 mls @ 125 mls/hr IV STAT [facility] Last Admin: 12/24/16 10:22 Dose: 125 mls/hr Levofloxacin/Dextrose 750 mg/ (Premix) 150 mls @ 100 mls/hr IV ONETIME ONE Stop: 12/24/16 12:11 Last Admin: 12/24/16 10:48 Dose: 100 mls/hr Magnesium Sulfate 2 gm/ Premix 50 mls @ 50 mls/hr IV ONETIME ONE Stop: 12/24/16 13:32 Last Admin: 12/24/16 13:30 Dose: 50 mls/hr Sodium Chloride (Normal Saline) 1,000 mls @ 125 mls/hr IV ASDIRECTED [facility] Stop: 12/25/16 06:14 Last Admin: 12/24/16 22:19 Dose: 125 mls/hr Sodium Chloride (Normal Saline) 1,000 mls @ 125 mls/hr IV ASDIRECTED [facility] Last Admin: 12/25/16 15:39 Dose: 125 mls/hr Sodium Chloride (Normal Saline) 500 mls @ 250 mls/hr IV .BOLUS [facility] Last Admin: 12/25/16 06:06 Dose: Not Given Lisinopril (Prinivil) 5 mg PO DAILY [facility] Last Admin: 12/24/16 13:35 Dose: 5 mg Lorazepam (Ativan) 0 mg IVPUSH ONETIME ONE PRN Reason: Protocol Stop: 12/24/16 11:59 Last Admin: 12/24/16 14:06 Dose: Not Given Methylprednisolone Sodium Succinate (Solu-Medrol) 125 mg IVPUSH ONETIME ONE Stop: 12/24/16 09:54 Last Admin: 12/24/16 10:14 Dose: 125 mg Nitroglycerin (Nitrostat) 0.4 mg SL Q5M PRN PRN Reason: Chest Pain Stop: 12/24/16 10:13 Last Admin: 12/24/16 10:45 Dose: 0.4 mg Potassium Chloride (Klor-Con M20) 40 meq PO ONETIME ONE Stop: 12/24/16 15:13 Last Admin: 12/24/16 16:23 Dose: 40 meq - Exam General: Alert, Oriented HEENT: Pupils Equal Neck: Supple Lungs: Rales Cardiovascular: Regular Rate, Regular Rhythm GI/Abdominal Exam: Normal Bowel Sounds (Male) Exam: No Hernia, Normal Inspection Back Exam: Normal Inspection, Full Range of Motion Extremities: Normal Inspection, Normal Range of Motion EKG INTERPRETATION Rhythm: NSR - Problem List Review Problem List Initiated/Reviewed/Updated: Yes - My Orders Last 24 Hours: My Active Orders 12/25/16 16:56 hydrALAZINE [Apresoline] 10 mg IVPUSH Q6H PRN 12/25/16 16:59 Weight Daily [Height and Weight] [RC] DAILY 12/25/16 17:00 Lisinopril [Prinivil] 10 mg PO DAILY amLODIPine [Norvasc] 5 mg PO DAILY 12/25/16 17:15 Furosemide [Lasix] 40 mg IVPUSH BID 12/26/16 08:23 Chest 2V [CR] Routine - Plan Plan:: 61-year-old male admitted with pneumonia, new onset CHF, and COPD 1. decompensated systolic HF, he would need angiogram this can be arranged as outpt, EF 30%. Got diuretics, lasix 40 mg, good outpt. HR improved, BP improved. - continue lasix 40 IV BID - strict I/O, wieght daily - repeat CXR today - start BB tomorrow 2. malignant HTN: now improved. on lisinopril 5, amlodipine 5 3. PNX on vanco/zosyn/levaquin concern of sepsis 4. AECOPD: lung sound improved today no wheezing. 5. leukocytosis: from PNA vs steroid, would stop solumedrol, HC NG so far
--- NOTE | 2016-12-26 09:22 | CR ---
PA and lateral chest Compared to prior 12/18/2016 there has been decrease in pulmonary edema with small residual bilateral pleural effusions. Cardiac size is unchanged. Impression: Improvement in pulmonary edema. Persistent small bilateral pleural effusions.
[2016-12-26] MEDS ORDERED: Carboxymethylcellulose Sodium 0.5% Ophth Soln 0.4 ML UD Box of 30 EYEBOTH PRN (11:28)
[2016-12-26] MEDS: Levofloxacin 250 MG Tab PO SCH (11:39)
--- NOTE | 2016-12-26 13:27 | PCM.PN ---
- General Info Date of Service: 12/26/16 Subjective Update: Mr. Cespedes has been doing significantly better since last night. When I saw the patient today he was sitting upright did not have any signs of sepsis. He was afebrile, not tachycardic, not tachypneic or in any acute distress. The patient is denying any shortness of breath he was on room air taking an proper amount of by mouth without any complications. He is on a fluid restriction secondary to his decompensated systolic heart failure. He has not shown any signs of pulmonary edema secondary to systolic heart failure. He is fluid retaining with bilateral pitting edema up to the knees. Dentition is denying any headaches any nausea, vomiting, diarrhea, constipation or any other systemic findings at the present moment. - Review of Systems General: Reports: No Symptoms HEENT: Reports: No Symptoms Pulmonary: Reports: No Symptoms Cardiovascular: Reports: Orthopnea Musculoskeletal: Reports: Other - Patient Data Vitals - Most Recent: Last Vital Signs Temp 37.2 C 12/26/16 12:00 Pulse 92 12/26/16 12:00 Resp 20 12/26/16 12:00 BP 165/85 H 12/26/16 12:00 Pulse Ox 95 12/26/16 12:00 Weight - Most Recent: 131.7 kg I&O - Last 24 Hours: Intake & Output 12/25/16 12/26/16 12/26/16 22:59 06:59 14:59 Intake Total 3737 1358 550 Output Total 1375 3230 Balance 2362 -1872 550 Lab Results Last 24 Hours: Laboratory Results - last 24 hr 12/25/16 12/25/16 12/25/16 Range/Units 16:07 17:15 21:41 WBC (4.0-11.0) K/uL RBC (4.50-5.90) M/uL Hgb (13.0-17.0) g/dL Hct (38.0-50.0) % MCV (80.0-98.0) fL MCH (27.0-32.0) pg MCHC (31.0-37.0) g/dL RDW Std Deviation (28.0-62.0) fl RDW Coeff of Julian (11.0-15.0) % Plt Count (150-400) K/uL MPV (7.40-12.00) fL Add Manual Diff Neutrophils % (Manual) (48.0-80.0) % Band Neutrophils % % Lymphocytes % (Manual) (16.0-40.0) % Monocytes % (Manual) (0.0-15.0) % Nucleated RBC % /100WBC Absolute Seg Neuts Band Neutrophils # Lymphocytes # (Manual) Monocytes # (Manual) Nucleated RBCs # K/uL Lactate 2.5 H 2.7 H (0.20-2.00) mmol/L Sodium (136-146) mmol/L Potassium (3.5-5.1) mmol/L Chloride (98-110) mmol/L Carbon Dioxide (21-31) mmol/L BUN (6.0-23.0) mg/dL Creatinine (0.6-1.5) mg/dL Est Cr Clr Drug Dosing mL/min Estimated GFR (MDRD) ml/min Glucose (60-110) mg/dL POC Glucose (60-110) mg/dL Calcium (8.8-10.8) mg/dL Magnesium (1.5-2.3) mEq/L Total Bilirubin (0.1-1.5) mg/dL AST (5-40) IU/L ALT (8-54) IU/L Alkaline Phosphatase (40-150) B-Natriuretic Peptide 164 H (<100) PG/ML Total Protein (6.0-8.0) g/dL Albumin (3.4-4.8) g/dL Globulin (2.0-3.5) g/dL Albumin/Globulin Ratio (1.3-2.8) 12/26/16 12/26/16 12/26/16 Range/Units 03:45 03:45 03:45 WBC 23.43 H (4.0-11.0) K/uL RBC 4.45 L (4.50-5.90) M/uL Hgb 13.9 (13.0-17.0) g/dL Hct 40.6 (38.0-50.0) % MCV 91.2 (80.0-98.0) fL MCH 31.2 (27.0-32.0) pg MCHC 34.2 (31.0-37.0) g/dL RDW Std Deviation 44.0 (28.0-62.0) fl RDW Coeff of Julian 13 (11.0-15.0) % Plt Count 294 (150-400) K/uL MPV 9.30 (7.40-12.00) fL Add Manual Diff YES Neutrophils % (Manual) 88 H (48.0-80.0) % Band Neutrophils % 2 % Lymphocytes % (Manual) 5 L (16.0-40.0) % Monocytes % (Manual) 5 (0.0-15.0) % Nucleated RBC % 0.0 /100WBC Absolute Seg Neuts 20.6 Band Neutrophils # 0.5 Lymphocytes # (Manual) 1.2 Monocytes # (Manual) 1.2 Nucleated RBCs # 0 K/uL Lactate 3.1 H (0.20-2.00) mmol/L Sodium 137 (136-146) mmol/L Potassium 3.4 L (3.5-5.1) mmol/L Chloride 101 (98-110) mmol/L Carbon Dioxide 24 (21-31) mmol/L BUN 20 (6.0-23.0) mg/dL Creatinine 1.1 (0.6-1.5) mg/dL Est Cr Clr Drug Dosing 76.06 mL/min Estimated GFR (MDRD) > 60.0 ml/min Glucose 268 H (60-110) mg/dL POC Glucose (60-110) mg/dL Calcium 8.3 L (8.8-10.8) mg/dL Magnesium 1.5 (1.5-2.3) mEq/L Total Bilirubin 0.4 (0.1-1.5) mg/dL AST 33 (5-40) IU/L ALT 48 (8-54) IU/L Alkaline Phosphatase 75 (40-150) B-Natriuretic Peptide (<100) PG/ML Total Protein 6.1 (6.0-8.0) g/dL Albumin 3.4 (3.4-4.8) g/dL Globulin 2.7 (2.0-3.5) g/dL Albumin/Globulin Ratio 1.3 (1.3-2.8) 12/26/16 12/26/16 Range/Units 06:43 09:45 WBC (4.0-11.0) K/uL RBC (4.50-5.90) M/uL Hgb (13.0-17.0) g/dL Hct (38.0-50.0) % MCV (80.0-98.0) fL MCH (27.0-32.0) pg MCHC (31.0-37.0) g/dL RDW Std Deviation (28.0-62.0) fl RDW Coeff of Julian (11.0-15.0) % Plt Count (150-400) K/uL MPV (7.40-12.00) fL Add Manual Diff Neutrophils % (Manual) (48.0-80.0) % Band Neutrophils % % Lymphocytes % (Manual) (16.0-40.0) % Monocytes % (Manual) (0.0-15.0) % Nucleated RBC % /100WBC Absolute Seg Neuts Band Neutrophils # Lymphocytes # (Manual) Monocytes # (Manual) Nucleated RBCs # K/uL Lactate 2.6 H (0.20-2.00) mmol/L Sodium (136-146) mmol/L Potassium (3.5-5.1) mmol/L Chloride (98-110) mmol/L Carbon Dioxide (21-31) mmol/L BUN (6.0-23.0) mg/dL Creatinine (0.6-1.5) mg/dL Est Cr Clr Drug Dosing mL/min Estimated GFR (MDRD) ml/min Glucose (60-110) mg/dL POC Glucose 189 H (60-110) mg/dL Calcium (8.8-10.8) mg/dL Magnesium (1.5-2.3) mEq/L Total Bilirubin (0.1-1.5) mg/dL AST (5-40) IU/L ALT (8-54) IU/L Alkaline Phosphatase (40-150) B-Natriuretic Peptide (<100) PG/ML Total Protein (6.0-8.0) g/dL Albumin (3.4-4.8) g/dL Globulin (2.0-3.5) g/dL Albumin/Globulin Ratio (1.3-2.8) Med Orders - Current: Current Medications Acetaminophen (Tylenol) 650 mg PO Q4H PRN PRN Reason: Pain (Mild 1-3)/fever Albuterol (Proventil Neb Soln) 2.5 mg NEB Q6HRRT [facility] Last Admin: 12/26/16 11:24 Dose: 2.5 mg Amlodipine Besylate (Norvasc) 5 mg PO DAILY [facility] Last Admin: 12/26/16 08:18 Dose: 5 mg Artificial Tears (Refresh Plus 0.5%) 0 each EYEBOTH ASDIRECTED PRN PRN Reason: Dry Eyes Last Admin: 12/26/16 11:39 Dose: 1 drop Enoxaparin Sodium (Lovenox) 40 mg SUBCUT Q24H [facility] Last Admin: 12/26/16 08:25 Dose: 40 mg Folic Acid (Folic Acid) 1 mg PO DAILY [facility] Last Admin: 12/26/16 08:19 Dose: 1 mg Furosemide (Lasix) 40 mg IVPUSH BID [facility] Last Admin: 12/26/16 08:20 Dose: 40 mg Hydralazine HCl (Apresoline) 10 mg IVPUSH Q6H PRN PRN Reason: Hypertension Vancomycin HCl 2 gm/ Sodium (Chloride) 500 mls @ 333.333 mls/hr IV Q12H [facility] Last Admin: 12/26/16 06:33 Dose: 333.3 mls/hr Insulin Aspart (Novolog) 0 unit SUBCUT TIDAC [facility] PRN Reason: Protocol Last Admin: 12/26/16 11:40 Dose: 3 unit Levofloxacin (Levaquin) 750 mg PO Q24H [facility] Last Admin: 12/26/16 11:39 Dose: 750 mg Lisinopril (Prinivil) 10 mg PO DAILY [facility] Last Admin: 12/26/16 08:19 Dose: 10 mg Lorazepam (Ativan) 0 mg IVPUSH Q4H PRN; Protocol PRN Reason: CIWAA Nicotine (Habitrol) 21 mg TRDERM DAILY [facility] Last Admin: 12/26/16 08:27 Dose: Not Given Ondansetron HCl (Zofran Odt) 4 mg PO Q4H PRN PRN Reason: nausea, able to take PO Prednisone (Prednisone) 40 mg PO WITHBREAKFAST [facility] Thiamine HCl (Vitamin B-1) 100 mg PO BEDTIME [facility] Last Admin: 12/25/16 20:02 Dose: 100 mg Discontinued Medications Albuterol (Proventil Neb Soln) 2.5 mg NEB Q2H PRN PRN Reason: Shortness Of Breath/wheezing Albuterol/Ipratropium (Duoneb 3.0-0.5 Mg/3 Ml) 3 ml NEB ONETIME ONE Stop: 12/24/16 09:54 Last Admin: 12/24/16 10:14 Dose: 3 ml Enalaprilat (Vasotec Iv) 1.25 mg IVPUSH ONETIME ONE Stop: 12/24/16 16:26 Last Admin: 12/24/16 16:34 Dose: 1.25 mg Furosemide (Lasix) 40 mg IVPUSH NOW ONE Stop: 12/24/16 12:16 Last Admin: 12/24/16 13:38 Dose: 40 mg Sodium Chloride (Normal Saline) 1,000 mls @ 125 mls/hr IV STAT [facility] Last Admin: 12/24/16 10:22 Dose: 125 mls/hr Levofloxacin/Dextrose 750 mg/ (Premix) 150 mls @ 100 mls/hr IV ONETIME ONE Stop: 12/24/16 12:11 Last Admin: 12/24/16 10:48 Dose: 100 mls/hr Levofloxacin/Dextrose 750 mg/ (Premix) 150 mls @ 100 mls/hr IV Q24H [facility] Last Admin: 12/25/16 11:59 Dose: 100 mls/hr Magnesium Sulfate 2 gm/ Premix 50 mls @ 50 mls/hr IV ONETIME ONE Stop: 12/24/16 13:32 Last Admin: 12/24/16 13:30 Dose: 50 mls/hr Sodium Chloride (Normal Saline) 1,000 mls @ 125 mls/hr IV ASDIRECTED [facility] Stop: 12/25/16 06:14 Last Admin: 12/24/16 22:19 Dose: 125 mls/hr Piperacillin Sod/Tazobactam (Sod 3.375 gm/ Sodium Chloride) 50 mls @ 100 mls/ hr IV Q6H [facility] Last Admin: 12/26/16 10:38 Dose: 100 mls/hr Sodium Chloride (Normal Saline) 1,000 mls @ 125 mls/hr IV ASDIRECTED [facility] Last Admin: 12/25/16 15:39 Dose: 125 mls/hr Sodium Chloride (Normal Saline) 500 mls @ 250 mls/hr IV .BOLUS [facility] Last Admin: 12/25/16 06:06 Dose: Not Given Lisinopril (Prinivil) 5 mg PO DAILY [facility] Last Admin: 12/24/16 13:35 Dose: 5 mg Lorazepam (Ativan) 0 mg IVPUSH ONETIME ONE PRN Reason: Protocol Stop: 12/24/16 11:59 Last Admin: 12/24/16 14:06 Dose: Not Given Methylprednisolone Sodium Succinate (Solu-Medrol) 125 mg IVPUSH ONETIME ONE Stop: 12/24/16 09:54 Last Admin: 12/24/16 10:14 Dose: 125 mg Methylprednisolone Sodium Succinate (Solu-Medrol) 125 mg IVPUSH Q6H [facility] Last Admin: 12/26/16 10:02 Dose: 125 mg Nitroglycerin (Nitrostat) 0.4 mg SL Q5M PRN PRN Reason: Chest Pain Stop: 12/24/16 10:13 Last Admin: 12/24/16 10:45 Dose: 0.4 mg Potassium Chloride (Klor-Con M20) 40 meq PO ONETIME ONE Stop: 12/24/16 15:13 Last Admin: 12/24/16 16:23 Dose: 40 meq Vancomycin HCl (Pharmacy To Dose - Vancomycin) 1 dose .XX ASDIRECTED [facility] - Exam General: Alert, Oriented HEENT: Pupils Equal Neck: Supple Lungs: Clear to Auscultation Cardiovascular: Regular Rate, Regular Rhythm GI/Abdominal Exam: Normal Bowel Sounds (Bilateral pitting edema up to knees) - Problem List Review Problem List Initiated/Reviewed/Updated: Yes - My Orders Last 24 Hours: My Active Orders 12/26/16 11:20 Retroperitoneal Ltd [US] Routine VL Duplex Abd Pel Ret Ltd [US] Routine 12/26/16 11:28 Carboxymethylcellulose Sodium [Refresh Plus 0.5%] 0 each EYEBOTH ASDIRECTED PRN 12/26/16 11:30 Levofloxacin [Levaquin] 750 mg PO Q24H 12/27/16 08:00 predniSONE 40 mg PO WITHBREAKFAST - Plan Plan:: 61-year-old male admitted with pneumonia, new onset CHF, and COPD 1. decompensated systolic HF with ejection fraction of 30%. Not tachycardic not tachypneic denies shortness of breath not hypoxic - continue lasix 40 IV BID as per cardiology - strict I/O's, fluid restriction 1.5 L, wieght daily as per cardiology - Renal ultrasound to rule out renal artery stenosis today - Possibly consider starting metoprolol tomorrow 2. malignant HTN: - Patient on when necessary hypertensive medication for systolic above 180 with lisinopril, amlodipine, Norvasc 3. Lactate acid is still elevated however the patient does not look septic - De-escalate IV antibiotics to oral Levaquin 750 mg by mouth, continue to trend lactate acid to ensure its decreasing. Leukocytosis likely secondary to Solu-Medrol. 4. Possible acute exacerbation of COPD patient's hypoxia stable presently not wheezing - Switch IV Solu-Medrol to oral prednisone 40 mg 5. leukocytosis -Likely secondary to Solu-Medrol 6. Dry/irritating eyes -Refresh eyedrops when necessary as needed 7. Hypokalemia of 3.4 - Continue to watch BMP 8. Hyperglycemia with normal A1c - Insulin per sliding scale protocol
--- NOTE | 2016-12-26 16:38 | US ---
Aortorenal Doppler ultrasound The aorta and renal arteries were interrogated bilaterally demonstrating normal waveforms with no ev idence of abnormal resistive indices are elevated velocities to suggest renal artery stenosis. Data is tabulated in the PACS system for detailed review Impression: No evidence of significant renal artery stenosis
--- NOTE | 2016-12-26 16:40 | US ---
Renal ultrasound Multiple longitudinal and transverse sections of the kidneys showed a measured 13 cm on the right an d 13.6 cm and the left. There is no hydronephrosis or renal mass or other significant focal patholog y identified. Echogenicity of the kidneys appears normal bilaterally and there is normal qualitative amount of renal parenchyma compared to renal sinus fat. Impression: Normal renal sonogram
[2016-12-26] MEDS: Thiamine 100 MG Tab PO SCH (20:18)
[2016-12-27] MEDS: Albuterol 0.083% 2.5 MG/3 ML Neb Soln NEB SCH ×3 (05:52→18:50)
[2016-12-27] MEDS: Insulin Aspart 100 Units/ML 3 ML Pen SUBCUT SCH ×3 (06:34→17:55)
[2016-12-27 06:38] LABS: CHLORIDE,CL 102 mmol/L (98-110); SODIUM,NA 141 mmol/L (136-146)
[2016-12-27] MEDS: Vancomycin 2 GM in Sodium Chloride 0.9% 500 ML IV SCH (07:20)
[2016-12-27] MEDS ORDERED: predniSONE 20 MG Tab PO SCH (08:00)
[2016-12-27] MEDS: Furosemide 40 MG/4 ML VIAL IVPUSH SCH (08:14)
[2016-12-27] MEDS: amLODIPine 5 MG Tab PO SCH (08:19)
[2016-12-27] MEDS: Folic Acid 1 MG Tab PO SCH (08:24)
[2016-12-27] MEDS: Lisinopril 10 MG Tab PO SCH (08:25)
[2016-12-27] MEDS: Enoxaparin 40 MG/0.4 ML Syringe SUBCUT SCH (08:25)
[2016-12-27] MEDS: Nicotine 21 MG/24 Hr Patch TRDERM SCH (08:27)
[2016-12-27] MEDS ORDERED: Metoprolol Succinate 25 MG Tab.ER PO SCH (09:00)
[2016-12-27] MEDS ORDERED: Potassium Chloride 20 MEQ Tab.ER PO SCH (11:30)
[2016-12-27] MEDS: Levofloxacin 250 MG Tab PO SCH (13:16)
--- NOTE | 2016-12-27 13:59 | PCM.PN ---
- General Info Date of Service: 12/27/16 Admission Dx/Problem (Free Text): 61M HTN CMPY EF 30% with decompensated systolic HF, COPD PNA Subjective Update: Has felt better, walked on the hallway, no chest pain. Functional Status: Reports: Pain Controlled - Review of Systems General: Reports: No Symptoms HEENT: Reports: No Symptoms Pulmonary: Reports: Shortness of Breath Cardiovascular: Reports: No Symptoms Gastrointestinal: Reports: No Symptoms Genitourinary: Reports: No Symptoms Musculoskeletal: Reports: No Symptoms Skin: Reports: No Symptoms Neurological: Reports: No Symptoms - Patient Data Vitals - Most Recent: Last Vital Signs Temp 36.6 C 12/27/16 12:00 Pulse 88 12/27/16 12:00 Resp 19 12/27/16 12:00 BP 177/87 H 12/27/16 08:25 Pulse Ox 94 L 12/27/16 12:00 Weight - Most Recent: 130.7 kg I&O - Last 24 Hours: Intake & Output 12/26/16 12/27/16 12/27/16 22:59 06:59 14:59 Intake Total 945 325 Output Total 2425 2220 Balance -1480 -1895 Lab Results Last 24 Hours: Laboratory Results - last 24 hr 12/26/16 12/26/16 12/26/16 Range/Units 11:39 16:40 17:02 WBC (4.0-11.0) K/uL RBC (4.50-5.90) M/uL Hgb (13.0-17.0) g/dL Hct (38.0-50.0) % MCV (80.0-98.0) fL MCH (27.0-32.0) pg MCHC (31.0-37.0) g/dL RDW Std Deviation (28.0-62.0) fl RDW Coeff of Julian (11.0-15.0) % Plt Count (150-400) K/uL MPV (7.40-12.00) fL Add Manual Diff Neutrophils % (Manual) (48.0-80.0) % Band Neutrophils % % Lymphocytes % (Manual) (16.0-40.0) % Monocytes % (Manual) (0.0-15.0) % Nucleated RBC % /100WBC Absolute Seg Neuts Band Neutrophils # Lymphocytes # (Manual) Monocytes # (Manual) Nucleated RBCs # K/uL Lactate 2.3 H (0.20-2.00) mmol/L Sodium (136-146) mmol/L Potassium (3.5-5.1) mmol/L Chloride (98-110) mmol/L Carbon Dioxide (21-31) mmol/L BUN (6.0-23.0) mg/dL Creatinine (0.6-1.5) mg/dL Est Cr Clr Drug Dosing mL/min Estimated GFR (MDRD) ml/min Glucose (60-110) mg/dL POC Glucose 275 H 158 H (60-110) mg/dL Calcium (8.8-10.8) mg/dL Magnesium (1.5-2.3) mEq/L Total Bilirubin (0.1-1.5) mg/dL AST (5-40) IU/L ALT (8-54) IU/L Alkaline Phosphatase (40-150) Total Protein (6.0-8.0) g/dL Albumin (3.4-4.8) g/dL Globulin (2.0-3.5) g/dL Albumin/Globulin Ratio (1.3-2.8) Vancomycin Trough (5-15) ug/mL 12/26/16 12/27/16 12/27/16 Range/Units 22:23 06:07 06:07 WBC 22.36 H (4.0-11.0) K/uL RBC 4.60 (4.50-5.90) M/uL Hgb 14.4 (13.0-17.0) g/dL Hct 41.8 (38.0-50.0) % MCV 90.9 (80.0-98.0) fL MCH 31.3 (27.0-32.0) pg MCHC 34.4 (31.0-37.0) g/dL RDW Std Deviation 44.4 (28.0-62.0) fl RDW Coeff of Julian 14 (11.0-15.0) % Plt Count 313 (150-400) K/uL MPV 9.20 (7.40-12.00) fL Add Manual Diff YES Neutrophils % (Manual) 84 H (48.0-80.0) % Band Neutrophils % 2 % Lymphocytes % (Manual) 9 L (16.0-40.0) % Monocytes % (Manual) 5 (0.0-15.0) % Nucleated RBC % 0.0 /100WBC Absolute Seg Neuts 18.8 Band Neutrophils # 0.4 Lymphocytes # (Manual) 2.0 Monocytes # (Manual) 1.1 Nucleated RBCs # 0 K/uL Lactate 1.9 (0.20-2.00) mmol/L Sodium 141 (136-146) mmol/L Potassium 3.1 L (3.5-5.1) mmol/L Chloride 102 (98-110) mmol/L Carbon Dioxide 28 (21-31) mmol/L BUN 26 H (6.0-23.0) mg/dL Creatinine 1.1 (0.6-1.5) mg/dL Est Cr Clr Drug Dosing 76.06 mL/min Estimated GFR (MDRD) > 60.0 ml/min Glucose 112 H (60-110) mg/dL POC Glucose (60-110) mg/dL Calcium 8.9 (8.8-10.8) mg/dL Magnesium 1.6 (1.5-2.3) mEq/L Total Bilirubin 0.4 (0.1-1.5) mg/dL AST 74 H (5-40) IU/L ALT 83 H (8-54) IU/L Alkaline Phosphatase 68 (40-150) Total Protein 6.4 (6.0-8.0) g/dL Albumin 3.4 (3.4-4.8) g/dL Globulin 3.0 (2.0-3.5) g/dL Albumin/Globulin Ratio 1.1 L (1.3-2.8) Vancomycin Trough (5-15) ug/mL 12/27/16 12/27/16 12/27/16 Range/Units 06:07 06:11 11:07 WBC (4.0-11.0) K/uL RBC (4.50-5.90) M/uL Hgb (13.0-17.0) g/dL Hct (38.0-50.0) % MCV (80.0-98.0) fL MCH (27.0-32.0) pg MCHC (31.0-37.0) g/dL RDW Std Deviation (28.0-62.0) fl RDW Coeff of Julian (11.0-15.0) % Plt Count (150-400) K/uL MPV (7.40-12.00) fL Add Manual Diff Neutrophils % (Manual) (48.0-80.0) % Band Neutrophils % % Lymphocytes % (Manual) (16.0-40.0) % Monocytes % (Manual) (0.0-15.0) % Nucleated RBC % /100WBC Absolute Seg Neuts Band Neutrophils # Lymphocytes # (Manual) Monocytes # (Manual) Nucleated RBCs # K/uL Lactate (0.20-2.00) mmol/L Sodium (136-146) mmol/L Potassium (3.5-5.1) mmol/L Chloride (98-110) mmol/L Carbon Dioxide (21-31) mmol/L BUN (6.0-23.0) mg/dL Creatinine (0.6-1.5) mg/dL Est Cr Clr Drug Dosing mL/min Estimated GFR (MDRD) ml/min Glucose (60-110) mg/dL POC Glucose 105 103 (60-110) mg/dL Calcium (8.8-10.8) mg/dL Magnesium (1.5-2.3) mEq/L Total Bilirubin (0.1-1.5) mg/dL AST (5-40) IU/L ALT (8-54) IU/L Alkaline Phosphatase (40-150) Total Protein (6.0-8.0) g/dL Albumin (3.4-4.8) g/dL Globulin (2.0-3.5) g/dL Albumin/Globulin Ratio (1.3-2.8) Vancomycin Trough 14.2 (5-15) ug/mL Med Orders - Current: Current Medications Acetaminophen (Tylenol) 650 mg PO Q4H PRN PRN Reason: Pain (Mild 1-3)/fever Albuterol (Proventil Neb Soln) 2.5 mg NEB Q6HRRT [facility] Last Admin: 12/27/16 13:36 Dose: 2.5 mg Amlodipine Besylate (Norvasc) 5 mg PO DAILY [facility] Last Admin: 12/27/16 08:19 Dose: 5 mg Artificial Tears (Refresh Plus 0.5%) 0 each EYEBOTH ASDIRECTED PRN PRN Reason: Dry Eyes Last Admin: 12/26/16 11:39 Dose: 1 drop Enoxaparin Sodium (Lovenox) 40 mg SUBCUT Q24H [facility] Last Admin: 12/27/16 08:25 Dose: 40 mg Folic Acid (Folic Acid) 1 mg PO DAILY [facility] Last Admin: 12/27/16 08:24 Dose: 1 mg Furosemide (Lasix) 40 mg PO BIDDIURETIC [facility] Hydralazine HCl (Apresoline) 10 mg IVPUSH Q6H PRN PRN Reason: Hypertension Insulin Aspart (Novolog) 0 unit SUBCUT TIDAC [facility] PRN Reason: Protocol Last Admin: 12/27/16 13:16 Dose: Not Given Levofloxacin (Levaquin) 750 mg PO Q24H [facility] Last Admin: 12/27/16 13:16 Dose: Not Given Lisinopril (Prinivil) 10 mg PO DAILY [facility] Last Admin: 12/27/16 08:25 Dose: 10 mg Lorazepam (Ativan) 0 mg IVPUSH Q4H PRN; Protocol PRN Reason: CIWAA Metoprolol Succinate (Toprol Xl) 25 mg PO DAILY [facility] Last Admin: 12/27/16 08:23 Dose: 25 mg Nicotine (Habitrol) 21 mg TRDERM DAILY [facility] Last Admin: 12/27/16 08:27 Dose: Not Given Ondansetron HCl (Zofran Odt) 4 mg PO Q4H PRN PRN Reason: nausea, able to take PO Potassium Chloride (Klor-Con M20) 40 meq PO DAILY [facility] Last Admin: 12/27/16 13:15 Dose: Not Given Prednisone (Prednisone) 40 mg PO WITHBREAKFAST [facility] Last Admin: 12/27/16 08:24 Dose: 40 mg Thiamine HCl (Vitamin B-1) 100 mg PO BEDTIME [facility] Last Admin: 12/26/16 20:18 Dose: 100 mg Discontinued Medications Albuterol (Proventil Neb Soln) 2.5 mg NEB Q2H PRN PRN Reason: Shortness Of Breath/wheezing Albuterol/Ipratropium (Duoneb 3.0-0.5 Mg/3 Ml) 3 ml NEB ONETIME ONE Stop: 12/24/16 09:54 Last Admin: 12/24/16 10:14 Dose: 3 ml Enalaprilat (Vasotec Iv) 1.25 mg IVPUSH ONETIME ONE Stop: 12/24/16 16:26 Last Admin: 12/24/16 16:34 Dose: 1.25 mg Furosemide (Lasix) 40 mg IVPUSH NOW ONE Stop: 12/24/16 12:16 Last Admin: 12/24/16 13:38 Dose: 40 mg Furosemide (Lasix) 40 mg IVPUSH BID [facility] Last Admin: 12/27/16 08:14 Dose: 40 mg Sodium Chloride (Normal Saline) 1,000 mls @ 125 mls/hr IV STAT [facility] Last Admin: 12/24/16 10:22 Dose: 125 mls/hr Levofloxacin/Dextrose 750 mg/ (Premix) 150 mls @ 100 mls/hr IV ONETIME ONE Stop: 12/24/16 12:11 Last Admin: 12/24/16 10:48 Dose: 100 mls/hr Levofloxacin/Dextrose 750 mg/ (Premix) 150 mls @ 100 mls/hr IV Q24H [facility] Last Admin: 12/25/16 11:59 Dose: 100 mls/hr Magnesium Sulfate 2 gm/ Premix 50 mls @ 50 mls/hr IV ONETIME ONE Stop: 12/24/16 13:32 Last Admin: 12/24/16 13:30 Dose: 50 mls/hr Sodium Chloride (Normal Saline) 1,000 mls @ 125 mls/hr IV ASDIRECTED [facility] Stop: 12/25/16 06:14 Last Admin: 12/24/16 22:19 Dose: 125 mls/hr Piperacillin Sod/Tazobactam (Sod 3.375 gm/ Sodium Chloride) 50 mls @ 100 mls/ hr IV Q6H [facility] Last Admin: 12/26/16 10:38 Dose: 100 mls/hr Sodium Chloride (Normal Saline) 1,000 mls @ 125 mls/hr IV ASDIRECTED [facility] Last Admin: 12/25/16 15:39 Dose: 125 mls/hr Sodium Chloride (Normal Saline) 500 mls @ 250 mls/hr IV .BOLUS [facility] Last Admin: 12/25/16 06:06 Dose: Not Given Vancomycin HCl 2 gm/ Sodium (Chloride) 500 mls @ 333.333 mls/hr IV Q12H [facility] Last Admin: 12/27/16 07:20 Dose: 333.3 mls/hr Lisinopril (Prinivil) 5 mg PO DAILY [facility] Last Admin: 12/24/16 13:35 Dose: 5 mg Lorazepam (Ativan) 0 mg IVPUSH ONETIME ONE PRN Reason: Protocol Stop: 12/24/16 11:59 Last Admin: 12/24/16 14:06 Dose: Not Given Methylprednisolone Sodium Succinate (Solu-Medrol) 125 mg IVPUSH ONETIME ONE Stop: 12/24/16 09:54 Last Admin: 12/24/16 10:14 Dose: 125 mg Methylprednisolone Sodium Succinate (Solu-Medrol) 125 mg IVPUSH Q6H [facility] Last Admin: 12/26/16 10:02 Dose: 125 mg Nitroglycerin (Nitrostat) 0.4 mg SL Q5M PRN PRN Reason: Chest Pain Stop: 12/24/16 10:13 Last Admin: 12/24/16 10:45 Dose: 0.4 mg Potassium Chloride (Klor-Con M20) 40 meq PO ONETIME ONE Stop: 12/24/16 15:13 Last Admin: 12/24/16 16:23 Dose: 40 meq Vancomycin HCl (Pharmacy To Dose - Vancomycin) 1 dose .XX ASDIRECTED [facility] - Exam General: Alert, Oriented HEENT: Pupils Equal, Pupils Reactive Neck: Supple, JVD (elevated). No: No JVD Lungs: Rales, Rhonchi Cardiovascular: Regular Rate GI/Abdominal Exam: Normal Bowel Sounds (Male) Exam: No Hernia Extremities: Pedal Edema EKG INTERPRETATION Rhythm: NSR - Problem List Review Problem List Initiated/Reviewed/Updated: Yes - My Orders Last 24 Hours: My Active Orders 12/27/16 09:00 Metoprolol Succinate [Toprol XL] 25 mg PO DAILY 12/27/16 18:00 Furosemide [Lasix] 40 mg PO BIDDIURETIC - Plan Plan:: 61-year-old male admitted with pneumonia, new onset CHF, and COPD 1. decompensated systolic HF, he would need angiogram this can be arranged as outpt, EF 30%. Got diuretics, lasix 40 mg, good outpt. HR improved, BP improved. - will change lasix 40 BID PO tonight - strict I/O, wieght daily 2. malignant HTN: still high on lisinopril 10, amlodipine 5, add toprol XL 25 daily 3. PNX on vanco/zosyn/levaquin concern of sepsis 4. AECOPD: lung sound improved. now on prednisone 5. leukocytosis: from PNA vs steroid, would stop solumedrol, HC NG so far
[2016-12-27] MEDS ORDERED: Cyclobenzaprine 5 MG Tab PO PRN (16:02)
[2016-12-27] MEDS ORDERED: Furosemide 40 MG Tab PO SCH (18:00)
--- NOTE | 2016-12-27 19:07 | PCM.PN ---
- General Info Date of Service: 12/27/16 Admission Dx/Problem (Free Text): Mr. Cespedes has been completely stable with no current complaint. Cardiology saw the patient and has switched him over to oral Lasix. And has start him on his metoprolol he will be reassessed tomorrow. The patient is not having any shortness of breath any nausea, vomiting, diarrhea, constipation. Patient sick appropriate by mouth without any difficulties. Patient's fluid retention is getting better. We'll continue to watch and monitor the patient. At this point in time is not having any further complaints or concerns. - Review of Systems General: Reports: No Symptoms HEENT: Reports: No Symptoms Pulmonary: Reports: No Symptoms Cardiovascular: Reports: No Symptoms, Orthopnea Gastrointestinal: Reports: No Symptoms Musculoskeletal: Reports: Joint Swelling Skin: Reports: No Symptoms - Patient Data Vitals - Most Recent: Last Vital Signs Temp 36.5 C 12/27/16 16:00 Pulse 89 12/27/16 16:00 Resp 18 12/27/16 16:00 BP 183/94 H 12/27/16 16:00 Pulse Ox 95 12/27/16 16:00 Weight - Most Recent: 130.7 kg I&O - Last 24 Hours: Intake & Output 12/27/16 12/27/16 12/27/16 06:59 14:59 22:59 Intake Total 325 470 Output Total 2220 2600 Balance -1895 -2130 Lab Results Last 24 Hours: Laboratory Results - last 24 hr 12/26/16 12/26/16 12/26/16 Range/Units 11:39 16:40 22:23 WBC (4.0-11.0) K/uL RBC (4.50-5.90) M/uL Hgb (13.0-17.0) g/dL Hct (38.0-50.0) % MCV (80.0-98.0) fL MCH (27.0-32.0) pg MCHC (31.0-37.0) g/dL RDW Std Deviation (28.0-62.0) fl RDW Coeff of Julian (11.0-15.0) % Plt Count (150-400) K/uL MPV (7.40-12.00) fL Add Manual Diff Neutrophils % (Manual) (48.0-80.0) % Band Neutrophils % % Lymphocytes % (Manual) (16.0-40.0) % Monocytes % (Manual) (0.0-15.0) % Nucleated RBC % /100WBC Absolute Seg Neuts Band Neutrophils # Lymphocytes # (Manual) Monocytes # (Manual) Nucleated RBCs # K/uL Lactate 1.9 (0.20-2.00) mmol/L Sodium (136-146) mmol/L Potassium (3.5-5.1) mmol/L Chloride (98-110) mmol/L Carbon Dioxide (21-31) mmol/L BUN (6.0-23.0) mg/dL Creatinine (0.6-1.5) mg/dL Est Cr Clr Drug Dosing mL/min Estimated GFR (MDRD) ml/min Glucose (60-110) mg/dL POC Glucose 275 H 158 H (60-110) mg/dL Calcium (8.8-10.8) mg/dL Magnesium (1.5-2.3) mEq/L Total Bilirubin (0.1-1.5) mg/dL AST (5-40) IU/L ALT (8-54) IU/L Alkaline Phosphatase (40-150) Total Protein (6.0-8.0) g/dL Albumin (3.4-4.8) g/dL Globulin (2.0-3.5) g/dL Albumin/Globulin Ratio (1.3-2.8) Vancomycin Trough (5-15) ug/mL 12/27/16 12/27/16 12/27/16 Range/Units 06:07 06:07 06:07 WBC 22.36 H (4.0-11.0) K/uL RBC 4.60 (4.50-5.90) M/uL Hgb 14.4 (13.0-17.0) g/dL Hct 41.8 (38.0-50.0) % MCV 90.9 (80.0-98.0) fL MCH 31.3 (27.0-32.0) pg MCHC 34.4 (31.0-37.0) g/dL RDW Std Deviation 44.4 (28.0-62.0) fl RDW Coeff of Julian 14 (11.0-15.0) % Plt Count 313 (150-400) K/uL MPV 9.20 (7.40-12.00) fL Add Manual Diff YES Neutrophils % (Manual) 84 H (48.0-80.0) % Band Neutrophils % 2 % Lymphocytes % (Manual) 9 L (16.0-40.0) % Monocytes % (Manual) 5 (0.0-15.0) % Nucleated RBC % 0.0 /100WBC Absolute Seg Neuts 18.8 Band Neutrophils # 0.4 Lymphocytes # (Manual) 2.0 Monocytes # (Manual) 1.1 Nucleated RBCs # 0 K/uL Lactate (0.20-2.00) mmol/L Sodium 141 (136-146) mmol/L Potassium 3.1 L (3.5-5.1) mmol/L Chloride 102 (98-110) mmol/L Carbon Dioxide 28 (21-31) mmol/L BUN 26 H (6.0-23.0) mg/dL Creatinine 1.1 (0.6-1.5) mg/dL Est Cr Clr Drug Dosing 76.06 mL/min Estimated GFR (MDRD) > 60.0 ml/min Glucose 112 H (60-110) mg/dL POC Glucose (60-110) mg/dL Calcium 8.9 (8.8-10.8) mg/dL Magnesium 1.6 (1.5-2.3) mEq/L Total Bilirubin 0.4 (0.1-1.5) mg/dL AST 74 H (5-40) IU/L ALT 83 H (8-54) IU/L Alkaline Phosphatase 68 (40-150) Total Protein 6.4 (6.0-8.0) g/dL Albumin 3.4 (3.4-4.8) g/dL Globulin 3.0 (2.0-3.5) g/dL Albumin/Globulin Ratio 1.1 L (1.3-2.8) Vancomycin Trough 14.2 (5-15) ug/mL 12/27/16 12/27/16 12/27/16 Range/Units 06:11 11:07 17:27 WBC (4.0-11.0) K/uL RBC (4.50-5.90) M/uL Hgb (13.0-17.0) g/dL Hct (38.0-50.0) % MCV (80.0-98.0) fL MCH (27.0-32.0) pg MCHC (31.0-37.0) g/dL RDW Std Deviation (28.0-62.0) fl RDW Coeff of Julian (11.0-15.0) % Plt Count (150-400) K/uL MPV (7.40-12.00) fL Add Manual Diff Neutrophils % (Manual) (48.0-80.0) % Band Neutrophils % % Lymphocytes % (Manual) (16.0-40.0) % Monocytes % (Manual) (0.0-15.0) % Nucleated RBC % /100WBC Absolute Seg Neuts Band Neutrophils # Lymphocytes # (Manual) Monocytes # (Manual) Nucleated RBCs # K/uL Lactate (0.20-2.00) mmol/L Sodium (136-146) mmol/L Potassium (3.5-5.1) mmol/L Chloride (98-110) mmol/L Carbon Dioxide (21-31) mmol/L BUN (6.0-23.0) mg/dL Creatinine (0.6-1.5) mg/dL Est Cr Clr Drug Dosing mL/min Estimated GFR (MDRD) ml/min Glucose (60-110) mg/dL POC Glucose 105 103 138 H (60-110) mg/dL Calcium (8.8-10.8) mg/dL Magnesium (1.5-2.3) mEq/L Total Bilirubin (0.1-1.5) mg/dL AST (5-40) IU/L ALT (8-54) IU/L Alkaline Phosphatase (40-150) Total Protein (6.0-8.0) g/dL Albumin (3.4-4.8) g/dL Globulin (2.0-3.5) g/dL Albumin/Globulin Ratio (1.3-2.8) Vancomycin Trough (5-15) ug/mL Med Orders - Current: Current Medications Acetaminophen (Tylenol) 650 mg PO Q4H PRN PRN Reason: Pain (Mild 1-3)/fever Albuterol (Proventil Neb Soln) 2.5 mg NEB Q6HRRT [facility] Last Admin: 12/27/16 18:50 Dose: 2.5 mg Amlodipine Besylate (Norvasc) 5 mg PO DAILY [facility] Last Admin: 12/27/16 08:19 Dose: 5 mg Artificial Tears (Refresh Plus 0.5%) 0 each EYEBOTH ASDIRECTED PRN PRN Reason: Dry Eyes Last Admin: 12/26/16 11:39 Dose: 1 drop Cyclobenzaprine HCl (Flexeril) 5 mg PO DAILY PRN PRN Reason: Pain Last Admin: 12/27/16 16:53 Dose: 5 mg Enoxaparin Sodium (Lovenox) 40 mg SUBCUT Q24H [facility] Last Admin: 12/27/16 08:25 Dose: 40 mg Folic Acid (Folic Acid) 1 mg PO DAILY [facility] Last Admin: 12/27/16 08:24 Dose: 1 mg Furosemide (Lasix) 40 mg PO BIDDIURETIC [facility] Last Admin: 12/27/16 18:13 Dose: 40 mg Hydralazine HCl (Apresoline) 10 mg IVPUSH Q6H PRN PRN Reason: Hypertension Last Admin: 12/27/16 16:53 Dose: 10 mg Insulin Aspart (Novolog) 0 unit SUBCUT TIDAC [facility] PRN Reason: Protocol Last Admin: 12/27/16 17:55 Dose: Not Given Levofloxacin (Levaquin) 750 mg PO Q24H [facility] Last Admin: 12/27/16 13:16 Dose: Not Given Lisinopril (Prinivil) 10 mg PO DAILY [facility] Last Admin: 12/27/16 08:25 Dose: 10 mg Lorazepam (Ativan) 0 mg IVPUSH Q4H PRN; Protocol PRN Reason: CIWAA Metoprolol Succinate (Toprol Xl) 25 mg PO DAILY [facility] Last Admin: 12/27/16 08:23 Dose: 25 mg Nicotine (Habitrol) 21 mg TRDERM DAILY [facility] Last Admin: 12/27/16 08:27 Dose: Not Given Ondansetron HCl (Zofran Odt) 4 mg PO Q4H PRN PRN Reason: nausea, able to take PO Potassium Chloride (Klor-Con M20) 40 meq PO DAILY [facility] Last Admin: 12/27/16 13:15 Dose: Not Given Prednisone (Prednisone) 40 mg PO WITHBREAKFAST [facility] Last Admin: 12/27/16 08:24 Dose: 40 mg Thiamine HCl (Vitamin B-1) 100 mg PO BEDTIME [facility] Last Admin: 12/26/16 20:18 Dose: 100 mg Discontinued Medications Albuterol (Proventil Neb Soln) 2.5 mg NEB Q2H PRN PRN Reason: Shortness Of Breath/wheezing Albuterol/Ipratropium (Duoneb 3.0-0.5 Mg/3 Ml) 3 ml NEB ONETIME ONE Stop: 12/24/16 09:54 Last Admin: 12/24/16 10:14 Dose: 3 ml Enalaprilat (Vasotec Iv) 1.25 mg IVPUSH ONETIME ONE Stop: 12/24/16 16:26 Last Admin: 12/24/16 16:34 Dose: 1.25 mg Furosemide (Lasix) 40 mg IVPUSH NOW ONE Stop: 12/24/16 12:16 Last Admin: 12/24/16 13:38 Dose: 40 mg Furosemide (Lasix) 40 mg IVPUSH BID [facility] Last Admin: 12/27/16 08:14 Dose: 40 mg Sodium Chloride (Normal Saline) 1,000 mls @ 125 mls/hr IV STAT [facility] Last Admin: 12/24/16 10:22 Dose: 125 mls/hr Levofloxacin/Dextrose 750 mg/ (Premix) 150 mls @ 100 mls/hr IV ONETIME ONE Stop: 12/24/16 12:11 Last Admin: 12/24/16 10:48 Dose: 100 mls/hr Levofloxacin/Dextrose 750 mg/ (Premix) 150 mls @ 100 mls/hr IV Q24H [facility] Last Admin: 12/25/16 11:59 Dose: 100 mls/hr Magnesium Sulfate 2 gm/ Premix 50 mls @ 50 mls/hr IV ONETIME ONE Stop: 12/24/16 13:32 Last Admin: 12/24/16 13:30 Dose: 50 mls/hr Sodium Chloride (Normal Saline) 1,000 mls @ 125 mls/hr IV ASDIRECTED [facility] Stop: 12/25/16 06:14 Last Admin: 12/24/16 22:19 Dose: 125 mls/hr Piperacillin Sod/Tazobactam (Sod 3.375 gm/ Sodium Chloride) 50 mls @ 100 mls/ hr IV Q6H [facility] Last Admin: 12/26/16 10:38 Dose: 100 mls/hr Sodium Chloride (Normal Saline) 1,000 mls @ 125 mls/hr IV ASDIRECTED [facility] Last Admin: 12/25/16 15:39 Dose: 125 mls/hr Sodium Chloride (Normal Saline) 500 mls @ 250 mls/hr IV .BOLUS [facility] Last Admin: 12/25/16 06:06 Dose: Not Given Vancomycin HCl 2 gm/ Sodium (Chloride) 500 mls @ 333.333 mls/hr IV Q12H [facility] Last Admin: 12/27/16 07:20 Dose: 333.3 mls/hr Lisinopril (Prinivil) 5 mg PO DAILY [facility] Last Admin: 12/24/16 13:35 Dose: 5 mg Lorazepam (Ativan) 0 mg IVPUSH ONETIME ONE PRN Reason: Protocol Stop: 12/24/16 11:59 Last Admin: 12/24/16 14:06 Dose: Not Given Methylprednisolone Sodium Succinate (Solu-Medrol) 125 mg IVPUSH ONETIME ONE Stop: 12/24/16 09:54 Last Admin: 12/24/16 10:14 Dose: 125 mg Methylprednisolone Sodium Succinate (Solu-Medrol) 125 mg IVPUSH Q6H [facility] Last Admin: 12/26/16 10:02 Dose: 125 mg Nitroglycerin (Nitrostat) 0.4 mg SL Q5M PRN PRN Reason: Chest Pain Stop: 12/24/16 10:13 Last Admin: 12/24/16 10:45 Dose: 0.4 mg Potassium Chloride (Klor-Con M20) 40 meq PO ONETIME ONE Stop: 12/24/16 15:13 Last Admin: 12/24/16 16:23 Dose: 40 meq Vancomycin HCl (Pharmacy To Dose - Vancomycin) 1 dose .XX ASDIRECTED [facility] - Exam General: Alert, Oriented, Cooperative Neck: Supple Lungs: Clear to Auscultation, Normal Respiratory Effort Cardiovascular: Regular Rate, Regular Rhythm GI/Abdominal Exam: Normal Bowel Sounds, Soft Extremities: Joint Swelling (Pitting edema up to mid tibial area) - Problem List Review Problem List Initiated/Reviewed/Updated: Yes - My Orders Last 24 Hours: My Active Orders 12/27/16 08:00 predniSONE 40 mg PO WITHBREAKFAST - Plan Plan:: 61-year-old male admitted with pneumonia, new onset CHF, and COPD 1. decompensated systolic HF, he would need angiogram this can be arranged as outpt, EF 30%. Got diuretics, lasix 40 mg, good outpt. HR improved, BP improved. - Patient is now on lasix 40 BID PO switch from IV tonight - strict I/O, wieght daily -Patient's metoprolol has also been started by cardiology 2. malignant HTN: Blood pressures have still been elevated if pressures above 180 systolic and then per cardiology patient shall receive lisinopril 10, amlodipine 5, add toprol XL 25 daily 3. PNX on oral levaquin concern of sepsis patient's lactate level is now normal 4. AECOPD: lung sound improved. now on prednisone oral 5. leukocytosis: from PNA vs steroid, would stop solumedrol, HC NG so far
[2016-12-27 20:19] VITALS: BP 127/112
--- NOTE | 2016-12-28 12:52 | PCM.DCSUM1 ---
Discharge Summary - Hospital Course Free Text/Narrative:: Discharge Summary Date of admission:12/24/2016 Date of discharge:2016 Admitting diagnosis: #1.sepsis with elevated lactate acid level versus acute exacerbation of congestive heart failure secondary to diastolic heart failure #2.hypoxia. Multiple causes including acute CHF exacerbation, pneumonia, COPD #3.lactate acidosis #4.alcohol abuse #5.hypertension #6. EKG showing left bundle branch block Discharge diagnoses: #1.patient left AGAINST MEDICAL ADVICE #2.sepsis was ruled out lactate acid level was normalized, patient was diagnosed with systolic heart failure with an ejection fraction of less than 30% #3.hypertension #4.EKG showing left bundle branch block #5.alcohol abuse Consultations: None Procedures: None Hospitalization course:patient left AGAINST MEDICAL ADVICE. She was seen by cardiology while inpatient it was determined that the patient had systolic heart failure. And that the elevated lactate acid level as well as the elevated WBC count was likely attributed to his IV prednisone and heart failure. As such the patient was switched from broad-spectrum IV antibiotics over to oral Levaquin. Patient was receiving initially IV Lasix 40 mg twice a day with strict fluid restrictions and input and output followed closely. patient was being followed by cardiology who felt the patient was doing quite well he was switched over to oral Lasix. However on 12/27/2016 the patient decided that he would like to leave the hospital AGAINST MEDICAL ADVICE despite explaining to the patient that he still needed further Lasix therapy and that this could exacerbate his congestive heart failure. The patient understood this and still proceeded to leave AGAINST MEDICAL ADVICE. Disposition on discharge: AMA Condition on discharge:AMA, patient was afebrile able to tolerate by mouth did not have any diarrhea constipation. Patient still was fluid retaining and had. Edema of his legs when assessed. Discharge medications: given prescription for oral Lasix, Levaquin, metoprolol, amlodipine, and continuation of home medication Follow-up instructions:patient to follow-up with cardiology, primary care physician Dr. French - Discharge Data Discharge Date: 12/27/16 Discharge Disposition: Against Medical Advice 07 Condition: Good - Patient Summary/Data Consults: Consultations 12/25/16 10:12 Consult to Physician [CONS] Routine - Patient Instructions Diet: Heart Healthy Diet, Low Sodium Fluid Restriction: 1500 mL - Discharge Plan Prescriptions/Med Rec: Albuterol [Proventil HFA] 6.7 gm INH Q4H PRN #1 inhaler PRN Reason: wheezing Fluticasone/Salmeterol [Advair Diskus 250-50] 1 puff INH BID #1 inhaler Furosemide [Lasix] 40 mg PO BIDDIURETIC #30 tablet Levofloxacin [Levaquin] 750 mg PO Q24H #5 tablet Lisinopril [Prinivil] 10 mg PO DAILY #30 tablet Metoprolol Succinate [Toprol XL] 25 mg PO DAILY #30 tab.er Potassium Chloride [Klor-Con M20] 20 meq PO DAILY #15 tab.er amLODIPine [Norvasc] 5 mg PO DAILY #30 tablet Home Medications: Home Meds Albuterol [Proventil HFA] 6.7 gm INH Q4H PRN #1 inhaler 12/27/16 [Rx] Fluticasone/Salmeterol [Advair Diskus 250-50] 1 puff INH BID #1 inhaler [Rx] Furosemide [Lasix] 40 mg PO BIDDIURETIC #30 tablet 12/27/16 [Rx] Levofloxacin [Levaquin] 750 mg PO Q24H #5 tablet 12/27/16 [Rx] Lisinopril [Prinivil] 10 mg PO DAILY #30 tablet 12/27/16 [Rx] Metoprolol Succinate [Toprol XL] 25 mg PO DAILY #30 tab.er 12/27/16 [Rx] Potassium Chloride [Klor-Con M20] 20 meq PO DAILY #15 tab.er 12/27/16 [Rx] amLODIPine [Norvasc] 5 mg PO DAILY #30 tablet 12/27/16 [Rx] Referrals: Jose Fuentes DO [Physician] - 01/03/17 11:30 am Steffany Vasquez MD [Physician] - 01/03/17 10:00 am - Patient Data Vitals - Most Recent: Last Vital Signs Temp 36.4 C 12/27/16 20:00 Pulse 102 H 12/27/16 20:00 Resp 20 12/27/16 20:00 BP 127/112 H 12/27/16 20:00 Pulse Ox 94 L 12/27/16 20:00 Weight - Most Recent: 130.7 kg I&O - Last 24 hours: Intake & Output 12/27/16 12/28/16 12/28/16 22:59 06:59 14:59 Intake Total 470 Output Total 2600 Balance -2130 Lab Results - Last 24 hrs: Laboratory Results - last 24 hr 12/27/16 Range/Units 17:27 POC Glucose 138 H (60-110) mg/dL Med Orders - Current: Current Medications Discontinued Medications Acetaminophen (Tylenol) 650 mg PO Q4H PRN PRN Reason: Pain (Mild 1-3)/fever Albuterol (Proventil Neb Soln) 2.5 mg NEB Q2H PRN PRN Reason: Shortness Of Breath/wheezing Albuterol (Proventil Neb Soln) 2.5 mg NEB Q6HRRT [facility] Last Admin: 12/27/16 18:50 Dose: 2.5 mg Albuterol/Ipratropium (Duoneb 3.0-0.5 Mg/3 Ml) 3 ml NEB ONETIME ONE Stop: 12/24/16 09:54 Last Admin: 12/24/16 10:14 Dose: 3 ml Amlodipine Besylate (Norvasc) 5 mg PO DAILY [facility] Last Admin: 12/27/16 08:19 Dose: 5 mg Artificial Tears (Refresh Plus 0.5%) 0 each EYEBOTH ASDIRECTED PRN PRN Reason: Dry Eyes Last Admin: 12/26/16 11:39 Dose: 1 drop Cyclobenzaprine HCl (Flexeril) 5 mg PO DAILY PRN PRN Reason: Pain Last Admin: 12/27/16 16:53 Dose: 5 mg Enalaprilat (Vasotec Iv) 1.25 mg IVPUSH ONETIME ONE Stop: 12/24/16 16:26 Last Admin: 12/24/16 16:34 Dose: 1.25 mg Enoxaparin Sodium (Lovenox) 40 mg SUBCUT Q24H [facility] Last Admin: 12/27/16 08:25 Dose: 40 mg Folic Acid (Folic Acid) 1 mg PO DAILY [facility] Last Admin: 12/27/16 08:24 Dose: 1 mg Furosemide (Lasix) 40 mg IVPUSH NOW ONE Stop: 12/24/16 12:16 Last Admin: 12/24/16 13:38 Dose: 40 mg Furosemide (Lasix) 40 mg IVPUSH BID [facility] Last Admin: 12/27/16 08:14 Dose: 40 mg Furosemide (Lasix) 40 mg PO BIDDIURETIC [facility] Last Admin: 12/27/16 18:13 Dose: 40 mg Hydralazine HCl (Apresoline) 10 mg IVPUSH Q6H PRN PRN Reason: Hypertension Last Admin: 12/27/16 16:53 Dose: 10 mg Sodium Chloride (Normal Saline) 1,000 mls @ 125 mls/hr IV STAT [facility] Last Admin: 12/24/16 10:22 Dose: 125 mls/hr Levofloxacin/Dextrose 750 mg/ (Premix) 150 mls @ 100 mls/hr IV ONETIME ONE Stop: 12/24/16 12:11 Last Admin: 12/24/16 10:48 Dose: 100 mls/hr Levofloxacin/Dextrose 750 mg/ (Premix) 150 mls @ 100 mls/hr IV Q24H [facility] Last Admin: 12/25/16 11:59 Dose: 100 mls/hr Magnesium Sulfate 2 gm/ Premix 50 mls @ 50 mls/hr IV ONETIME ONE Stop: 12/24/16 13:32 Last Admin: 12/24/16 13:30 Dose: 50 mls/hr Sodium Chloride (Normal Saline) 1,000 mls @ 125 mls/hr IV ASDIRECTED [facility] Stop: 12/25/16 06:14 Last Admin: 12/24/16 22:19 Dose: 125 mls/hr Piperacillin Sod/Tazobactam (Sod 3.375 gm/ Sodium Chloride) 50 mls @ 100 mls/ hr IV Q6H [facility] Last Admin: 12/26/16 10:38 Dose: 100 mls/hr Sodium Chloride (Normal Saline) 1,000 mls @ 125 mls/hr IV ASDIRECTED [facility] Last Admin: 12/25/16 15:39 Dose: 125 mls/hr Sodium Chloride (Normal Saline) 500 mls @ 250 mls/hr IV .BOLUS [facility] Last Admin: 12/25/16 06:06 Dose: Not Given Vancomycin HCl 2 gm/ Sodium (Chloride) 500 mls @ 333.333 mls/hr IV Q12H [facility] Last Admin: 12/27/16 07:20 Dose: 333.3 mls/hr Insulin Aspart (Novolog) 0 unit SUBCUT TIDAC [facility] PRN Reason: Protocol Last Admin: 12/27/16 17:55 Dose: Not Given Levofloxacin (Levaquin) 750 mg PO Q24H [facility] Last Admin: 12/27/16 13:16 Dose: Not Given Lisinopril (Prinivil) 5 mg PO DAILY [facility] Last Admin: 12/24/16 13:35 Dose: 5 mg Lisinopril (Prinivil) 10 mg PO DAILY [facility] Last Admin: 12/27/16 08:25 Dose: 10 mg Lorazepam (Ativan) 0 mg IVPUSH ONETIME ONE PRN Reason: Protocol Stop: 12/24/16 11:59 Last Admin: 12/24/16 14:06 Dose: Not Given Lorazepam (Ativan) 0 mg IVPUSH Q4H PRN; Protocol PRN Reason: CIWAA Methylprednisolone Sodium Succinate (Solu-Medrol) 125 mg IVPUSH ONETIME ONE Stop: 12/24/16 09:54 Last Admin: 12/24/16 10:14 Dose: 125 mg Methylprednisolone Sodium Succinate (Solu-Medrol) 125 mg IVPUSH Q6H [facility] Last Admin: 12/26/16 10:02 Dose: 125 mg Metoprolol Succinate (Toprol Xl) 25 mg PO DAILY [facility] Last Admin: 12/27/16 08:23 Dose: 25 mg Nicotine (Habitrol) 21 mg TRDERM DAILY [facility] Last Admin: 12/27/16 08:27 Dose: Not Given Nitroglycerin (Nitrostat) 0.4 mg SL Q5M PRN PRN Reason: Chest Pain Stop: 12/24/16 10:13 Last Admin: 12/24/16 10:45 Dose: 0.4 mg Ondansetron HCl (Zofran Odt) 4 mg PO Q4H PRN PRN Reason: nausea, able to take PO Potassium Chloride (Klor-Con M20) 40 meq PO ONETIME ONE Stop: 12/24/16 15:13 Last Admin: 12/24/16 16:23 Dose: 40 meq Potassium Chloride (Klor-Con M20) 40 meq PO DAILY [facility] Last Admin: 12/27/16 13:15 Dose: Not Given Prednisone (Prednisone) 40 mg PO WITHBREAKFAST [facility] Last Admin: 12/27/16 08:24 Dose: 40 mg Thiamine HCl (Vitamin B-1) 100 mg PO BEDTIME [facility] Last Admin: 12/26/16 20:18 Dose: 100 mg Vancomycin HCl (Pharmacy To Dose - Vancomycin) 1 dose .XX ASDIRECTED [facility] *Q Meaningful Use (DIS) - VTE *Q VTE Criteria *Q: - Stroke *Q Stroke Criteria *Q: - AMI *Q AMI Criteria *Q:
--- NOTE | 2016-12-30 15:07 | ECHO ---
EXAM DATE: 12/24/16 PATIENT'S AGE: 61 The echocardiogram report can be seen in this patient's EMR (Electronic Medical Record) in the Reports section. The report has also been scanned into PACS. ISA
== END 2016-12-27 19:54 | disposition left against medical advice (07) | DRG 190 ==
LOC: MW.ED 09:39 → MW.MS 11:44
PROVIDERS: ADMIT Internal Medicine; ATTEND Internal Medicine
DX: J44.0 Chronic obstructive pulmonary disease with (acute) lower respiratory infection (principal); J18.9 Pneumonia, unspecified organism; I50.20 Unspecified systolic (congestive) heart failure; I10 Essential (primary) hypertension; I44.7 Left bundle-branch block, unspecified; E78.00 Pure hypercholesterolemia, unspecified; E11.9 Type 2 diabetes mellitus without complications; F10.10 Alcohol abuse, uncomplicated; F17.210 Nicotine dependence, cigarettes, uncomplicated; Z53.21 Procedure and treatment not carried out due to patient leaving prior to being seen by health care provider
CPT/HCPCS: 36415; 36600; 71010; 71010-26; 71020; 71020-26; 76775; 76775-26; 80053; 80202; 81001; 82550; 82553; 82803; 82962; 83036; 83605; 83735; 83880; 84484; 85025; 85610; 87040; 93005; 93306; 93976; 93976-26; 94640; 94664; 96361; 96365; 96375; 99285; 99285-25; A9270-GY; J0360; J1650; J1815-GY; J1940; J1956; J2543; J2930; J3370; J3475; J7040; J7050

== ENCOUNTER 2019-08-10 02:55 | Emergency (ER) | payer MEDICAID, OTHER ==
[2019-08-10] MEDS ORDERED: Labetalol 100 MG/20 ML MDV IVPUSH ONE (03:08)
[2019-08-10] MEDS ORDERED: Sodium Chloride 0.9% 1,000 ML IV ONE (03:10)
[2019-08-10] MEDS ORDERED: Lisinopril/Hydrochlorothiazide 10-12.5 MG Tab PO SCH (03:15)
[2019-08-10] MEDS ORDERED: Lisinopril 10 MG Tab PO ONE (03:21)
[2019-08-10] MEDS ORDERED: Hydrochlorothiazide 25 MG Tab ONE (03:39)
[2019-08-10 03:40] LABS: BLOOD UREA NITROGEN,BUN 11 mg/dL (7.0-18.0); CARBON DIOXIDE,CO2 25.4 mmol/L (21.0-32.0); CHLORIDE,CL 101 mmol/L (98-107); GLUCOSE RANDOM 94 mg/dL (74-106); POTASSIUM,K 3.8 mmol/L (3.5-5.1); SODIUM,NA 137 mmol/L (136-148)
--- NOTE | 2019-08-10 03:59 | CR ---
Indication: Chest pain Technique: Chest 1 view Comparison: 11/19/2018 Findings/Impression: Cardiovascular and mediastinum: Borderline cardiomegaly, partially related to the portable technique. An unfolded aorta. Lungs and pleural space: A lordotic study. No consolidation or pleural effusions. No pneumothorax seen. Bones and soft tissues: No significant change. Dictated by Artem Mercedes MD @ 08/10/2019 3:57:26 AM Dictated by: Artem Mercedes MD @ 08/10/2019 03:57:30 (Electronically Signed)
[2019-08-10] MEDS ORDERED: hydrALAZINE 10 MG Tab PO STA (05:16)
--- NOTE | 2019-08-10 05:24 | EDM.PDOC ---
ED HPI GENERAL MEDICAL PROBLEM - General Chief Complaint: Chest Pain Stated Complaint: CHEST PAIN Time Seen by Provider: 08/10/19 03:02 Source of Information: Reports: Patient History Limitations: Reports: No Limitations - History of Present Illness INITIAL COMMENTS - FREE TEXT/NARRATIVE: 63-year-old male to the emergency room chief complaint of not taking his medication for a month having shortness of breath Onset: Today Duration: Week(s):, Intermittent Location: Reports: Chest Quality: Reports: Same as Previous Episode Severity: Mild Improves with: Reports: None Worsens with: Reports: None Context: Reports: Activity Associated Symptoms: Reports: No Other Symptoms, Shortness of Breath chest Pain Score (Numeric/FACES): 5 - Related Data Allergies Allergy/AdvReac Type Severity Reaction Status Date / Time adhesive tape Allergy Hives Verified 08/10/19 03:01 latex Allergy Hives Verified 08/10/19 03:01 Home Meds: Home Meds Albuterol [Proventil HFA] 6.7 gm INH Q12HR PRN 11/19/18 [History] Furosemide [Lasix] 40 mg PO DAILY #30 tab 11/23/18 [Rx] Lisinopril 20 mg PO DAILY #30 tablet 11/23/18 [Rx] Past Medical History HEENT History: Reports: None Cardiovascular History: Reports: Heart Murmur, High Cholesterol, Hypertension, [place] Respiratory History: Reports: None Gastrointestinal History: Reports: Hemorrhoids Genitourinary History: Reports: None Musculoskeletal History: Reports: Back Pain, Chronic Other Musculoskeletal History: Hx of torn rotator cuffs Neurological History: Reports: None Other Neuro History: Slipped on ice and fell on head winter 2017 Psychiatric History: Reports: None Endocrine/Metabolic History: Reports: None Hematologic History: Reports: None Immunologic History: Reports: None Oncologic (Cancer) History: Reports: None Dermatologic History: Reports: Cellulitis - Infectious Disease History Infectious Disease History: Reports: Chicken Pox - Past Surgical History Head Surgeries/Procedures: Reports: None HEENT Surgical History: Reports: None Cardiovascular Surgical History: Reports: None Respiratory Surgical History: Reports: None GI Surgical History: Reports: Colonoscopy, Polypectomy Male Surgical History: Reports: None Endocrine Surgical History: Reports: None Neurological Surgical History: Reports: None Musculoskeletal Surgical History: Reports: Other (See Below) Oncologic Surgical History: Reports: None Social & Family History - Family History Family Medical History: Noncontributory - Tobacco Use Smoking Status *Q: Current Every Day Smoker Years of Tobacco use: 10 Packs/Tins Daily: 1 - Caffeine Use Caffeine Use: Reports: Coffee, Soda, Tea - Recreational Drug Use Recreational Drug Use: Yes Drug Use in Last 12 Months: No ED ROS GENERAL - Review of Systems Review Of Systems: See Below Constitutional: Reports: No Symptoms HEENT: Reports: No Symptoms Respiratory: Reports: Shortness of Breath Cardiovascular: Reports: No Symptoms, Lightheadedness Endocrine: Reports: No Symptoms GI/Abdominal: Reports: No Symptoms : Reports: No Symptoms Musculoskeletal: Reports: No Symptoms Skin: Reports: No Symptoms Neurological: Reports: No Symptoms Psychiatric: Reports: No Symptoms Hematologic/Lymphatic: Reports: No Symptoms Immunologic: Reports: No Symptoms ED EXAM, GENERAL - Physical Exam Exam: See Below Free Text/Narrative:: This 63-year-old male presents the emergency room chief complaint of shortness of breath on and off. HEENT is normal Chest x-ray is negative Lungs are clear to auscultation Abdomen soft nontender. Patient was given medication for hyperten initially blood pressure responded 178 systolic. Patient will be discharged General Appearance: Alert, WD/WN, No Apparent Distress Eye Exam: Bilateral Eye: Abnormal EOM, Abnormal Pupil, PERRL Ears: Normal External Exam Ear Exam: Bilateral Ear: Auricle Normal, Canal Normal Nose: Normal Inspection, Normal Mucosa Throat/Mouth: Normal Inspection, Normal Lips, Normal Teeth, Normal Gums, No Airway Compromise Neck: Normal Inspection Respiratory/Chest: No Respiratory Distress, Lungs Clear, Normal Breath Sounds, No Accessory Muscle Use Cardiovascular: Normal Peripheral Pulses GI/Abdominal: Normal Bowel Sounds, Soft (Male) Exam: No Hernia Back Exam: Normal Inspection, Full Range of Motion Extremities: Normal Inspection, Normal Range of Motion Neurological: Alert, Oriented, CN II-XII Intact Psychiatric: Normal Affect Skin Exam: Warm Lymphatic: No Adenopathy EKG INTERPRETATION EKG Date: 08/10/19 EKG Interpretation Comments: Left bundle branch block no acute changes Course - Vital Signs Text/Narrative:: 63-year-old male presents the emergency room cardiac enzymes are negative. Patient's exam is normal. Blood pressure has still not improved. Patient will be discharged with medication. Patient has a normal EKG Last Recorded V/S: Last Vital Signs Temp 97.1 F 08/10/19 03:02 Pulse 70 08/10/19 04:30 Resp 18 08/10/19 04:30 BP 209/125 H 08/10/19 04:30 Pulse Ox 95 08/10/19 04:30 - Orders/Labs/Meds Orders: Active Orders 24 hr Category Date Time Status EKG 12 Lead [EKG Documentation Completion] [RC] STAT Care 08/10/19 03:07 Active hydrALAZINE [Apresoline] Med 08/10/19 05:16 Stat 10 mg PO NOW STA hydroCHLOROthiazide Med 08/10/19 21:00 Active 12.5 mg PO BEDTIME Medication Orders Hydralazine HCl (Apresoline) 10 mg PO NOW STA Stop: 08/10/19 05:17 Hydrochlorothiazide (Hydrochlorothiazide) 12.5 mg PO BEDTIME CHECO Last Admin: 08/10/19 03:41 Dose: 12.5 mg Labs: Laboratory Tests 08/10/19 08/10/19 Range/Units 03:00 03:00 WBC 11.15 H (4.0-11.0) K/uL RBC 4.96 (4.50-5.90) M/uL Hgb 15.6 (13.0-17.0) g/dL Hct 44.6 (38.0-50.0) % MCV 89.9 (80.0-98.0) fL MCH 31.5 (27.0-32.0) pg MCHC 35.0 (31.0-37.0) g/dL RDW Std Deviation 41.3 (28.0-62.0) fl RDW Coeff of Julian 13 (11.0-15.0) % Plt Count 283 (150-400) K/uL MPV 9.30 (7.40-12.00) fL Neut % (Auto) 66.1 (48.0-80.0) % Lymph % (Auto) 23.7 (16.0-40.0) % [place] % (Auto) 8.2 (0.0-15.0) % Eos % (Auto) 1.8 (0.0-7.0) % Baso % (Auto) 0.2 (0.0-1.5) % Neut # (Auto) 7.4 H (1.4-5.7) K/uL Lymph # (Auto) 2.6 H (0.6-2.4) K/uL [place] # (Auto) 0.9 H (0.0-0.8) K/uL Eos # (Auto) 0.2 (0.0-0.7) K/uL Baso # (Auto) 0.0 (0.0-0.1) K/uL Nucleated RBC % 0.0 /100WBC Nucleated RBCs # 0 K/uL Sodium 137 (136-148) mmol/L Potassium 3.8 (3.5-5.1) mmol/L Chloride 101 (98-107) mmol/L Carbon Dioxide 25.4 (21.0-32.0) mmol/L BUN 11 (7.0-18.0) mg/dL Creatinine 0.9 (0.8-1.3) mg/dL Est Cr Clr Drug Dosing 90.64 mL/min Estimated GFR (MDRD) > 60.0 ml/min Glucose 94 (74-106) mg/dL Calcium 8.9 (8.5-10.1) mg/dL Total Bilirubin 0.8 (0.2-1.0) mg/dL AST 28 (15-37) IU/L ALT 30 (14-63) IU/L Alkaline Phosphatase 117 H (46-116) U/L Troponin I < 0.050 (0.000-0.056) ng/mL Total Protein 7.3 (6.4-8.2) g/dL Albumin 3.6 (3.4-5.0) g/dL Globulin 3.7 (2.6-4.0) g/dL Albumin/Globulin Ratio 1.0 (0.9-1.6) Meds: Medications Generic Name Dose Route Start Last Admin Trade Name Freq PRN Reason Stop Dose Admin Hydralazine HCl 10 mg 08/10/19 05:16 Apresoline PO 08/10/19 05:17 NOW STA Hydrochlorothiazide 12.5 mg 08/10/19 21:00 08/10/19 03:41 Hydrochlorothiazide PO 12.5 mg BEDTIME CHECO Administration Discontinued Medications Generic Name Dose Route Start Last Admin Trade Name Freq PRN Reason Stop Dose Admin Lisinopril/HCTZ 1 tab 08/10/19 03:15 08/10/19 03:38 Lisinopril-Hctz 10-12.5 Mg PO Not Given DAILY CHECO Hydrochlorothiazide Confirm 08/10/19 03:39 08/10/19 03:51 Hydrochlorothiazide Administered 08/10/19 03:40 Not Given Dose 25 mg .ROUTE .STK-MED ONE Labetalol HCl 20 mg 08/10/19 03:08 08/10/19 03:17 Normodyne IVPUSH 08/10/19 03:09 20 mg ONETIME ONE Administration Protocol Lisinopril 10 mg 08/10/19 03:21 08/10/19 03:41 Prinivil PO 08/10/19 03:22 10 mg ONETIME ONE Administration Departure - Departure Time of Disposition: 05:26 Disposition: Home, W Home Health Agency 06 Condition: Good Clinical Impression: Hypertension, Noncompliance with medication regimen Instructions: How to Take Your Blood Pressure, [id number], Managing Your Hypertension Referrals: PCP,None [Primary Care Provider] - Sepsis Event Note - Evaluation Sepsis Screening Result: No Definite Risk - Focused Exam Vital Signs: Vital Signs Temp Pulse Resp BP BP Pulse Ox 08/10/19 04:30 70 18 209/125 H 95 08/10/19 03:45 70 15 178/100 H 97 08/10/19 03:41 178/100 H 08/10/19 03:07 85 18 197/113 H 94 L 08/10/19 03:02 97.1 F 84 20 202/124 H 97 Date Exam was Performed: 08/10/19 Time Exam was Performed: 05:18 - My Orders Last 24 Hours: My Active Orders 08/10/19 03:07 EKG 12 Lead [EKG Documentation Completion] [RC] STAT 08/10/19 05:16 hydrALAZINE [Apresoline] 10 mg PO NOW STA 08/10/19 21:00 hydroCHLOROthiazide 12.5 mg PO BEDTIME - Assessment/Plan Last 24 Hours: My Active Orders 08/10/19 03:07 EKG 12 Lead [EKG Documentation Completion] [RC] STAT 08/10/19 05:16 hydrALAZINE [Apresoline] 10 mg PO NOW STA 08/10/19 21:00 hydroCHLOROthiazide 12.5 mg PO BEDTIME
[2019-08-10 05:50] VITALS: BP 183/115; PULSE 89
[2019-08-10] MEDS ORDERED: Hydrochlorothiazide 12.5 MG Cap PO SCH (21:00)
== END 2019-08-10 05:48 | disposition home health service (06) ==
LOC: MW.ED 02:55
DX: I10 Essential (primary) hypertension (principal); F17.210 Nicotine dependence, cigarettes, uncomplicated; Z91.040 Latex allergy status; Z91.048 Other nonmedicinal substance allergy status
CPT/HCPCS: 36415; 71045; 80053; 84484; 85025; 93005; 96374; 99285; A9270; J3490

== ENCOUNTER 2019-09-24 02:06 | Emergency (ER) | payer MEDICAID ==
[2019-09-24] MEDS ORDERED: Sodium Chloride 0.9% 10 ML Syringe FLUSH PRN (02:12)
[2019-09-24] MEDS ORDERED: Sodium Chloride 0.9% 2.5 ML Syringe FLUSH PRN (02:12)
--- NOTE | 2019-09-24 02:21 | EDM.PDOC ---
ED HPI GENERAL MEDICAL PROBLEM - General Chief Complaint: Respiratory Problem Stated Complaint: SOB Time Seen by Provider: 09/24/19 02:07 Source of Information: Reports: Patient, Police History Limitations: Reports: No Limitations - History of Present Illness INITIAL COMMENTS - FREE TEXT/NARRATIVE: History of present illness: [Patient is 63-year-old male presenting with shortness of breath. He was pulled over and taken [facility] by [facility] for suspicion of DUI and when they went to the breathalyzer test patient was complaining of shortness of breath requested to come to the hospital. Has a history of smoking "a little bit." When asked if he has COPD says he thinks so. Has an inhaler at home but does not really use it. Denies chest pain. Denies fever. Denies body aches or chills. Denies known exposure to anyone with COVID-19. States he is supposed to have a cardiac work-up last year but never went to get the testing done. Has been told he has "35% function of my heart and lungs." No other complaints or issues at this time.] Review of systems: As per history of present illness and below otherwise all systems reviewed and negative. Past medical history: As per history of present illness and as reviewed below otherwise noncontributory. Surgical history: As per history of present illness and as reviewed below otherwise noncontributory. Social history: No reported history of drug or alcohol abuse. Family history: As per history of present illness and as reviewed below otherwise noncontributory. Physical exam: HEENT: Atraumatic, normocephalic, pupils reactive, negative for conjunctival pallor or scleral icterus, mucous membranes moist, throat clear, neck supple, nontender, trachea midline. Lungs: Clear to auscultation, breath sounds equal bilaterally, chest nontender. No respiratory distress. Heart: S1S2, regular, negative for clicks, rubs, or JVD. Abdomen: Soft, nondistended, nontender. Negative for masses or hepatosplenomegaly. Pelvis: Stable nontender. Genitourinary: Deferred. Rectal: Deferred. Extremities: Atraumatic, negative for cords or calf pain. Neurovascular unremarkable. Neuro: Awake, alert, oriented. Motor and sensory grossly intact throughout. Exam nonfocal. Diagnostics: [] Therapeutics: [] Impression: [] Plan: [] Definitive disposition and diagnosis as appropriate pending reevaluation and review of above. - Related Data Allergies Allergy/AdvReac Type Severity Reaction Status Date / Time adhesive tape Allergy Hives Verified 09/24/19 02:13 latex Allergy Hives Verified 09/24/19 02:13 Home Meds: Home Meds Albuterol [Proventil HFA] 6.7 gm INH Q12HR PRN 11/19/18 [History] Furosemide [Lasix] 40 mg PO DAILY #30 tab 11/23/18 [Rx] Lisinopril 20 mg PO DAILY #30 tablet 11/23/18 [Rx] hydroCHLOROthiazide [Hydrochlorothiazide] 50 mg PO ONETIME #30 tablet 08/10/19 [ Rx] Past Medical History HEENT History: Reports: None Cardiovascular History: Reports: Heart Murmur, High Cholesterol, Hypertension, [place] Respiratory History: Reports: None Gastrointestinal History: Reports: Hemorrhoids Genitourinary History: Reports: None Musculoskeletal History: Reports: Back Pain, Chronic Other Musculoskeletal History: Hx of torn rotator cuffs Neurological History: Reports: None Other Neuro History: Slipped on ice and fell on head winter 2017 Psychiatric History: Reports: None Endocrine/Metabolic History: Reports: None Hematologic History: Reports: None Immunologic History: Reports: None Oncologic (Cancer) History: Reports: None Dermatologic History: Reports: Cellulitis - Infectious Disease History Infectious Disease History: Reports: Chicken Pox - Past Surgical History Head Surgeries/Procedures: Reports: None HEENT Surgical History: Reports: None Cardiovascular Surgical History: Reports: None Respiratory Surgical History: Reports: None GI Surgical History: Reports: Colonoscopy, Polypectomy Male Surgical History: Reports: None Endocrine Surgical History: Reports: None Neurological Surgical History: Reports: None Musculoskeletal Surgical History: Reports: Other (See Below) Oncologic Surgical History: Reports: None Social & Family History - Family History Family Medical History: Noncontributory - Tobacco Use Smoking Status *Q: Light Tobacco Smoker - Caffeine Use Caffeine Use: Reports: Coffee, Soda, Tea ED ROS GENERAL - Review of Systems Review Of Systems: Comprehensive ROS is negative, except as noted in HPI. ED EXAM, GENERAL - Physical Exam Exam: See Below (see h and p) Free Text/Narrative:: see H and P EKG INTERPRETATION EKG Date: 09/24/19 Time: 02:24 Rhythm: NSR Rate (Beats/Min): 68 [place]: Normal P-Wave: Present QRS: LBBB QT: Normal Comparison: No Change (compared to EKG on 08-10-19) Course - Vital Signs Text/Narrative:: Given the timing and circumstances of the complaint, strongly suspect malingering. Patient was pulled over and suspicion by PD is DUI. He only complained of dyspnea when they went to administer breathalyzer test. Workup here is largely unremarkable. Troponin negative, ekg with no acute changes, similar to previous. does not appear to be in respiratory distress, lung sounds clear without wheezing or rhonchi. No evidence for COPD exacerbation, no chest pain, unlikely to be ACS. Stable vitals. Believe he is appropriate for outpatient follow up and management. Last Recorded V/S: Last Vital Signs Temp 36.9 C 09/24/19 02:11 Pulse 66 09/24/19 02:55 Resp 16 09/24/19 02:55 BP 158/94 H 09/24/19 02:55 Pulse Ox 96 09/24/19 02:55 - Orders/Labs/Meds Orders: Active Orders 24 hr Category Date Time Status Cardiac Monitoring [RC] . DIRECTED Care 09/24/19 02:12 Active EKG Documentation Completion [RC] STAT Care 09/24/19 02:12 Active Oxygen Therapy [RC] ASDIRECTED Care 09/24/19 02:12 Active Pulse Oximetry [RC] ASDIRECTED Care 09/24/19 02:12 Active B-TYPE NATRIURETIC PEPTIDE,BNP [CHEM] Stat Lab 09/24/19 02:22 Received Sodium Chloride 0.9% [Saline Flush] Med 09/24/19 02:12 Active 10 ml FLUSH ASDIRECTED PRN Sodium Chloride 0.9% [Saline Flush] Med 09/24/19 02:12 Active 2.5 ml FLUSH ASDIRECTED PRN Saline Lock Insert [OM.PC] Stat Oth 09/24/19 02:12 Ordered Medication Orders Sodium Chloride (Saline Flush) 10 ml FLUSH ASDIRECTED PRN PRN Reason: Keep Vein Open Sodium Chloride (Saline Flush) 2.5 ml FLUSH ASDIRECTED PRN PRN Reason: Keep Vein Open Labs: Laboratory Tests 09/24/19 09/24/19 Range/Units 02:22 02:22 WBC 9.00 (4.0-11.0) K/uL RBC 5.21 (4.50-5.90) M/uL Hgb 16.0 (13.0-17.0) g/dL Hct 46.2 (38.0-50.0) % MCV 88.7 (80.0-98.0) fL MCH 30.7 (27.0-32.0) pg MCHC 34.6 (31.0-37.0) g/dL RDW Std Deviation 41.3 (28.0-62.0) fl RDW Coeff of Julian 13 (11.0-15.0) % Plt Count 242 (150-400) K/uL MPV 9.50 (7.40-12.00) fL Neut % (Auto) 66.0 (48.0-80.0) % Lymph % (Auto) 26.9 (16.0-40.0) % [place] % (Auto) 4.7 (0.0-15.0) % Eos % (Auto) 2.0 (0.0-7.0) % Baso % (Auto) 0.4 (0.0-1.5) % Neut # (Auto) 5.9 H (1.4-5.7) K/uL Lymph # (Auto) 2.4 (0.6-2.4) K/uL [place] # (Auto) 0.4 (0.0-0.8) K/uL Eos # (Auto) 0.2 (0.0-0.7) K/uL Baso # (Auto) 0.0 (0.0-0.1) K/uL Nucleated RBC % 0.0 /100WBC Nucleated RBCs # 0 K/uL Sodium 141 (136-148) mmol/L Potassium 3.6 (3.5-5.1) mmol/L Chloride 105 (98-107) mmol/L Carbon Dioxide 26.8 (21.0-32.0) mmol/L BUN 9 (7.0-18.0) mg/dL Creatinine 0.8 (0.8-1.3) mg/dL Est Cr Clr Drug Dosing 101.97 mL/min Estimated GFR (MDRD) > 60.0 ml/min Glucose 110 H (74-106) mg/dL Calcium 8.7 (8.5-10.1) mg/dL Total Bilirubin 0.4 (0.2-1.0) mg/dL AST 25 (15-37) IU/L ALT 27 (14-63) IU/L Alkaline Phosphatase 111 (46-116) U/L Troponin I < 0.050 (0.000-0.056) ng/mL Total Protein 7.6 (6.4-8.2) g/dL Albumin 3.6 (3.4-5.0) g/dL Globulin 4.0 (2.6-4.0) g/dL Albumin/Globulin Ratio 0.9 (0.9-1.6) Meds: Medications Generic Name Dose Route Start Last Admin Trade Name Freq PRN Reason Stop Dose Admin Sodium Chloride 10 ml 09/24/19 02:12 Saline Flush FLUSH ASDIRECTED PRN Keep Vein Open Sodium Chloride 2.5 ml 09/24/19 02:12 Saline Flush FLUSH ASDIRECTED PRN Keep Vein Open Departure - Departure Time of Disposition: 03:17 Disposition: Home, Self-Care 01 Condition: Good Clinical Impression: Dyspnea, Poorly-controlled hypertension, HTN (hypertension) - Discharge Information Instructions: Hypertension, Adult, Shortness of Breath, Adult Referrals: PCP,None [Primary Care Provider] - 1 Day ([facility] - Internal Medicine [address] [place] [address] ) Forms: ED Department Discharge Sepsis Event Note - Evaluation Sepsis Screening Result: No Definite Risk - Focused Exam Vital Signs: Vital Signs Temp Pulse Resp BP Pulse Ox Pulse Ox 09/24/19 02:55 66 16 158/94 H 96 09/24/19 02:30 96 09/24/19 02:11 36.9 C 72 16 163/96 H 96 Date Exam was Performed: 09/24/19 Time Exam was Performed: 03:16 - My Orders Last 24 Hours: My Active Orders 09/24/19 02:12 Cardiac Monitoring [RC] . DIRECTED EKG Documentation Completion [RC] STAT Oxygen Therapy [RC] ASDIRECTED Pulse Oximetry [RC] ASDIRECTED Sodium Chloride 0.9% [Saline Flush] 10 ml FLUSH ASDIRECTED PRN Sodium Chloride 0.9% [Saline Flush] 2.5 ml FLUSH ASDIRECTED PRN Saline Lock Insert [OM.PC] Stat 09/24/19 02:22 B-TYPE NATRIURETIC PEPTIDE,BNP [CHEM] Stat - Assessment/Plan Last 24 Hours: My Active Orders 09/24/19 02:12 Cardiac Monitoring [RC] . DIRECTED EKG Documentation Completion [RC] STAT Oxygen Therapy [RC] ASDIRECTED Pulse Oximetry [RC] ASDIRECTED Sodium Chloride 0.9% [Saline Flush] 10 ml FLUSH ASDIRECTED PRN Sodium Chloride 0.9% [Saline Flush] 2.5 ml FLUSH ASDIRECTED PRN Saline Lock Insert [OM.PC] Stat 09/24/19 02:22 B-TYPE NATRIURETIC PEPTIDE,BNP [CHEM] Stat
--- NOTE | 2019-09-24 02:51 | CR ---
INDICATION: Shortness of breath TECHNIQUE: Chest 1 view COMPARISON: None FINDINGS: Cardiovascular and mediastinum: Normal heart size with mild aortic tortuosity. Lungs and pleural spaces: Lungs are clear. No sign of infiltrate or mass. No sign of pleural effusion. No pneumothorax. Bones and soft tissues: No significant findings. IMPRESSION: No acute cardiopulmonary abnormality. Dictated by Best Isaacs MD @ Sep 24 2019 2:50AM Signed by Dr. Best Isaacs @ Sep 24 2019 2:51AM
[2019-09-24 02:52] LABS: BLOOD UREA NITROGEN,BUN 9 mg/dL (7.0-18.0); CARBON DIOXIDE,CO2 26.8 mmol/L (21.0-32.0); CHLORIDE,CL 105 mmol/L (98-107); GLUCOSE RANDOM 110 mg/dL (74-106); POTASSIUM,K 3.6 mmol/L (3.5-5.1); SODIUM,NA 141 mmol/L (136-148)
[2019-09-24 02:56] VITALS: BP 158/94; PULSE 66
== END 2019-09-24 03:25 | disposition home or self-care (01) ==
LOC: MW.ED 02:06
DX: I10 Essential (primary) hypertension (principal); Z91.048 Other nonmedicinal substance allergy status; Z91.040 Latex allergy status; Z79.899 Other long term (current) drug therapy; I25.2 Old myocardial infarction; F17.200 Nicotine dependence, unspecified, uncomplicated
CPT/HCPCS: 36415; 71045; 71045-26; 80053; 83880; 84484; 85025; 93005; 99283; 99285-25

== ENCOUNTER 2020-03-29 10:54 | Inpatient (IN) | payer MEDICAID ==
[2020-03-29] MEDS ORDERED: Sodium Chloride 0.9% 2.5 ML Syringe FLUSH PRN ×2 (11:35→17:04)
[2020-03-29] MEDS ORDERED: Sodium Chloride 0.9% 10 ML Syringe FLUSH PRN (11:35)
[2020-03-29] MEDS ORDERED: MVI, Adult with Vitamin K 10 ML, Thiamine 100 MG, Folic Acid 1 MG in Sodium Chloride 0.... IV ONE ×4 (11:39)
[2020-03-29] MEDS ORDERED: Labetalol 100 MG/20 ML MDV IVPUSH ONE ×3 (11:47→16:12)
--- NOTE | 2020-03-29 11:47 | EDM.PDOC ---
ED HPI GENERAL MEDICAL PROBLEM - General Chief Complaint: Head Injury Stated Complaint: PT FELL HIT BACK OF HEAD Time Seen by Provider: 03/29/20 10:59 Source of Information: Reports: Patient History Limitations: Reports: Other (poor historian) - History of Present Illness INITIAL COMMENTS - FREE TEXT/NARRATIVE: HISTORY AND PHYSICAL: History of present illness: Patient is a 64-year-old male, with a history of chronic alcohol abuse, congestive heart failure, COPD, hypertension, prior myocardial infarction with cardiac arrest, who presents to the ED today with concern with syncopal events, dizziness, and head injury due to falling that occurred 2 days ago. Patient states he also has been having intermittent chest pain, last episode just prior to arrival to the ED, but currently not having chest pain. Patient states 2 days ago he was walking and fell and hit the back of his head and lost consciousness. Patient states the day before that he also fell hitting his and lost consciousness. Patient states that he feels like his "equilibrium "is off as he has had issues with his balance and has been dizzy. Patient states he has had issues with dizziness/balance x 1 week. Patient states he has decided to not take his blood pressure medications and his blood pressure is always high. Patient states he does feel as if the dizziness is causing his equilibrium to be off. Patient is a poor historian and is not able to explain much about his past health history, or time frame of his heart history/possible cardiac arrest. Patient states his last drink was 2 am and states he had 5 beers and 7 shots of hard alcohol before bed. States he does get symptoms if he stops drinking. Patient denies fever, chills, shortness of breath, or cough. Denies headache, neck stiff ness, change in vision. Denies nausea, vomiting, abdominal pain, diarrhea, constipation, or dysuria. Has not noted any blood in urine or stool. Patient has been eating and drinking appropriately. Review of systems: As per history of present illness and below otherwise all systems reviewed and negative. Past medical history: As per history of present illness and as reviewed below otherwise noncont ributory. Surgical history: As per history of present illness and as reviewed below otherwise noncontributory. Social history: See social history for further information Family history: As per history of present illness and as reviewed below otherwise noncontributory. Physical exam: General: Patient is alert, oriented, and in no acute distress. Patient sitting comfortably on exam table. HEENT: Atraumatic, normocephalic, pupils equal and reactive bilaterally, negative for conjunctival pallor or scleral icterus, mucous membranes moist, TMs normal bilaterally, throat clear, neck supple, nontender, trachea midline. No drooling or trismus noted. No meningeal signs. No hot potato voice noted. Lungs: Clear to auscultation, breath sounds equal bilaterally, chest nontender. Heart: S1S2, regular rate and rhythm without overt murmur Abdomen: Soft, nondistended, nontender. Negative for masses or hepatosplenomegaly. Negative for costovertebral tenderness. Pelvis: Stable nontender. Genitourinary: Deferred. Rectal: Deferred. Skin: Intact, warm, dry. No lesions or rashes noted. Extremities: Superficial abrasions of the right forearm that are healed over. Full ROM of all extremities without difficulty. Patent does have a difficult Otherwise, atraumatic, negative for cords or calf pain. Neurovascular unremarkable. Neuro: Awake, alert, oriented. Cranial nerves II through XII unremarkable. Patient does have dizziness and difficulty with ambulation but did ambulate into the ED today. Notes: Dr. Jaramillo consulted on patient and will admit to observation telemetry. Voices understanding and is agreeable to plan of care. Denies any further questions or concerns at this time. Diagnostics: EKG, CBC, CMP, UA, CXR, Trop, head ct, ethanol, UDS, COVID19, ammonia, ang head/neck, inr/ptt Therapeutics: Banana bag, labetalol, ASA Impression: Dizziness Syncope Chest pain r/o ACS Hypertension Chronic alcohol abuse Plan: Admit to observation to Dr. Jaramillo on telemetry Definitive disposition and diagnosis as appropriate pending reevaluation and review of above. Head Pain Score (Numeric/FACES): 6 - Related Data Allergies Allergy/AdvReac Type Severity Reaction Status Date / Time adhesive tape Allergy Hives Verified 03/29/20 11:20 latex Allergy Hives Verified 03/29/20 11:20 Home Meds: Home Meds . [No Known Home Meds] 03/29/20 [History] Past Medical History HEENT History: Reports: None Cardiovascular History: Reports: Heart Murmur, High Cholesterol, Hypertension, ID Respiratory History: Reports: None Gastrointestinal History: Reports: Hemorrhoids Genitourinary History: Reports: None Musculoskeletal History: Reports: Back Pain, Chronic Other Musculoskeletal History: Hx of torn rotator cuffs Neurological History: Reports: None Other Neuro History: Slipped on ice and fell on head winter 2017 Psychiatric History: Reports: None Endocrine/Metabolic History: Reports: None Hematologic History: Reports: None Immunologic History: Reports: None Oncologic (Cancer) History: Reports: None Dermatologic History: Reports: Cellulitis - Infectious Disease History Infectious Disease History: Reports: None - Past Surgical History Head Surgeries/Procedures: Reports: None HEENT Surgical History: Reports: None Cardiovascular Surgical History: Reports: None Respiratory Surgical History: Reports: None GI Surgical History: Reports: Colonoscopy, Polypectomy Male Surgical History: Reports: None Endocrine Surgical History: Reports: None Neurological Surgical History: Reports: None Musculoskeletal Surgical History: Reports: Other (See Below) Oncologic Surgical History: Reports: None Social & Family History - Family History Family Medical History: No Pertinent Family History - Tobacco Use Tobacco Use Status *Q: Current Every Day Tobacco User Years of Tobacco use: 55 Packs/Tins Daily: 0.2 - Caffeine Use Caffeine Use: Reports: Coffee, Soda, Tea - Recreational Drug Use Recreational Drug Use: No ED ROS GENERAL - Review of Systems Review Of Systems: Comprehensive ROS is negative, except as noted in HPI. ED EXAM, HEAD INJURY - Physical Exam Exam: See Below (see dictation) Course - Vital Signs Last Recorded V/S: Last Vital Signs Temp 97.4 F 03/29/20 18:00 Pulse 85 03/29/20 18:00 Resp 17 03/29/20 18:00 BP 214/111 H 03/29/20 18:00 Pulse Ox 96 03/29/20 18:00 - Orders/Labs/Meds Orders: Medication Orders Acetaminophen (Tylenol) 650 mg PO Q4H PRN PRN Reason: Pain (Mild 1-3)/fever Albuterol/Ipratropium (Duoneb 3.0-0.5 Mg/3 Ml) 3 ml NEB Q4HRRT PRN PRN Reason: dyspnea/wheezing Bisacodyl (Dulcolax) 5 mg PO DAILY PRN PRN Reason: Constipation Docusate Sodium (Colace) 100 mg PO BID CHECO Folic Acid (Folic Acid) 1 mg SUBCUT DAILY CHECO Furosemide (Lasix) 40 mg PO DAILY CHECO Thiamine HCl 500 mg/ Sodium (Chloride) 255 mls @ 510 mls/hr IV Q8H CHECO Last Admin: 03/29/20 18:20 Dose: 510 mls/hr Documented by: GERHARD Labetalol HCl (Normodyne) 20 mg IVPUSH Q4H PRN PRN Reason: SBP>190 Last Admin: 03/29/20 18:40 Dose: 20 mg Documented by: GERHARD Lisinopril (Prinivil) 40 mg PO DAILY CHECO Lorazepam (Ativan) 0 mg IVPUSH Q2H PRN; Protocol PRN Reason: CIWAA Last Admin: 03/29/20 18:57 Dose: 1 mg Documented by: GERHARD Ondansetron HCl (Zofran) 4 mg IVPUSH Q4H PRN PRN Reason: Nausea Sodium Chloride (Saline Flush) 2.5 ml FLUSH ASDIRECTED PRN PRN Reason: Keep Vein Open Labs: Laboratory Tests 03/29/20 03/29/20 03/29/20 Range/Units 11:52 11:52 12:20 WBC 10.87 (4.0-11.0) K/uL RBC 5.29 (4.50-5.90) M/uL Hgb 17.0 (13.0-17.0) g/dL Hct 47.1 (38.0-50.0) % MCV 89.0 (80.0-98.0) fL MCH 32.1 H (27.0-32.0) pg MCHC 36.1 (31.0-37.0) g/dL RDW Std Deviation 41.7 (28.0-62.0) fl RDW Coeff of [place] 13 (11.0-15.0) % Plt Count 227 (150-400) K/uL MPV 8.90 (7.40-12.00) fL Neut % (Auto) 81.5 H (48.0-80.0) % Lymph % (Auto) 11.4 L (16.0-40.0) % [place] % (Auto) 6.4 (0.0-15.0) % Eos % (Auto) 0.4 (0.0-7.0) % Baso % (Auto) 0.3 (0.0-1.5) % Neut # (Auto) 8.9 H (1.4-5.7) K/uL Lymph # (Auto) 1.2 (0.6-2.4) K/uL [place] # (Auto) 0.7 (0.0-0.8) K/uL Eos # (Auto) 0.0 (0.0-0.7) K/uL Baso # (Auto) 0.0 (0.0-0.1) K/uL Nucleated RBC % 0.0 /100WBC Nucleated RBCs # 0 K/uL INR Sodium (136-148) mmol/L Potassium (3.5-5.1) mmol/L Chloride (98-107) mmol/L Carbon Dioxide (21.0-32.0) mmol/L BUN (7.0-18.0) mg/dL Creatinine (0.8-1.3) mg/dL Est Cr Clr Drug Dosing mL/min Estimated GFR (MDRD) ml/min Glucose (74-106) mg/dL Calcium (8.5-10.1) mg/dL Phosphorus (2.6-4.7) mg/dL Magnesium (1.8-2.4) mg/dL Total Bilirubin (0.2-1.0) mg/dL AST (15-37) IU/L ALT (14-63) IU/L Alkaline Phosphatase (46-116) U/L Ammonia (19-54) ug/dL Troponin I (0.000-0.056) ng/mL B-Natriuretic Peptide (<100) PG/ML Total Protein (6.4-8.2) g/dL Albumin (3.4-5.0) g/dL Globulin (2.6-4.0) g/dL Albumin/Globulin Ratio (0.9-1.6) Lipase (73-393) U/L Urine Color YELLOW Urine Appearance CLEAR Urine pH 7.0 (5.0-8.0) Ur Specific [place] 1.025 (1.001-1.035) Urine Protein 100 H (NEGATIVE) mg/dL Urine Glucose (UA) NEGATIVE (NEGATIVE) mg/dL Urine Ketones TRACE H (NEGATIVE) mg/dL Urine Occult Blood TRACE-INTACT H (NEGATIVE) Urine Nitrite NEGATIVE (NEGATIVE) Urine Bilirubin NEGATIVE (NEGATIVE) Urine Urobilinogen 0.2 (<2.0) EU/dL Ur Leukocyte Esterase NEGATIVE (NEGATIVE) Urine RBC 0-2 (0-2/HPF) Urine WBC 0-1 (0-5/HPF) Ur Epithelial Cells RARE (NONE-FEW) Urine Bacteria FEW (NEGATIVE) Urine Opiates Screen NEGATIVE (NEGATIVE) Ur Oxycodone Screen NEGATIVE (NEGATIVE) Urine Methadone Screen NEGATIVE (NEGATIVE) Ur Barbiturates Screen NEGATIVE (NEGATIVE) Ur Phencyclidine Scrn NEGATIVE (NEGATIVE) Ur Amphetamine Screen NEGATIVE (NEGATIVE) U Methamphetamines Scrn NEGATIVE (NEGATIVE) U Benzodiazepines Scrn NEGATIVE (NEGATIVE) U Cocaine Metab Screen NEGATIVE (NEGATIVE) U Marijuana (THC) Screen POSITIVE (NEGATIVE) Ethyl Alcohol mg/dL 03/29/20 03/29/20 03/29/20 Range/Units 12:20 12:20 12:20 WBC (4.0-11.0) K/uL RBC (4.50-5.90) M/uL Hgb (13.0-17.0) g/dL Hct (38.0-50.0) % MCV (80.0-98.0) fL MCH (27.0-32.0) pg MCHC (31.0-37.0) g/dL RDW Std Deviation (28.0-62.0) fl RDW Coeff of [place] (11.0-15.0) % Plt Count (150-400) K/uL MPV (7.40-12.00) fL Neut % (Auto) (48.0-80.0) % Lymph % (Auto) (16.0-40.0) % [place] % (Auto) (0.0-15.0) % Eos % (Auto) (0.0-7.0) % Baso % (Auto) (0.0-1.5) % Neut # (Auto) (1.4-5.7) K/uL Lymph # (Auto) (0.6-2.4) K/uL [place] # (Auto) (0.0-0.8) K/uL Eos # (Auto) (0.0-0.7) K/uL Baso # (Auto) (0.0-0.1) K/uL Nucleated RBC % /100WBC Nucleated RBCs # K/uL INR Sodium 135 L (136-148) mmol/L Potassium 3.3 L (3.5-5.1) mmol/L Chloride 97 L (98-107) mmol/L Carbon Dioxide 22.6 (21.0-32.0) mmol/L BUN 4 L (7.0-18.0) mg/dL Creatinine 0.7 L (0.8-1.3) mg/dL Est Cr Clr Drug Dosing 115.04 mL/min Estimated GFR (MDRD) > 60.0 ml/min Glucose 93 (74-106) mg/dL Calcium 8.8 (8.5-10.1) mg/dL Phosphorus (2.6-4.7) mg/dL Magnesium (1.8-2.4) mg/dL Total Bilirubin 1.1 H (0.2-1.0) mg/dL AST 35 (15-37) IU/L ALT 30 (14-63) IU/L Alkaline Phosphatase 137 H (46-116) U/L Ammonia (19-54) ug/dL Troponin I < 0.050 (0.000-0.056) ng/mL B-Natriuretic Peptide 38 (<100) PG/ML Total Protein 8.3 H (6.4-8.2) g/dL Albumin 4.1 (3.4-5.0) g/dL Globulin 4.2 H (2.6-4.0) g/dL Albumin/Globulin Ratio 1.0 (0.9-1.6) Lipase 130 (73-393) U/L Urine Color Urine Appearance Urine pH (5.0-8.0) Ur Specific [place] (1.001-1.035) Urine Protein (NEGATIVE) mg/dL Urine Glucose (UA) (NEGATIVE) mg/dL Urine Ketones (NEGATIVE) mg/dL Urine Occult Blood (NEGATIVE) Urine Nitrite (NEGATIVE) Urine Bilirubin (NEGATIVE) Urine Urobilinogen (<2.0) EU/dL Ur Leukocyte Esterase (NEGATIVE) Urine RBC (0-2/HPF) Urine WBC (0-5/HPF) Ur Epithelial Cells (NONE-FEW) Urine Bacteria (NEGATIVE) Urine Opiates Screen (NEGATIVE) Ur Oxycodone Screen (NEGATIVE) Urine Methadone Screen (NEGATIVE) Ur Barbiturates Screen (NEGATIVE) Ur Phencyclidine Scrn (NEGATIVE) Ur Amphetamine Screen (NEGATIVE) U Methamphetamines Scrn (NEGATIVE) U Benzodiazepines Scrn (NEGATIVE) U Cocaine Metab Screen (NEGATIVE) U Marijuana (THC) Screen (NEGATIVE) Ethyl Alcohol 26 mg/dL 03/29/20 03/29/20 03/29/20 Range/Units 12:20 15:05 15:05 WBC (4.0-11.0) K/uL RBC (4.50-5.90) M/uL Hgb (13.0-17.0) g/dL Hct (38.0-50.0) % MCV (80.0-98.0) fL MCH (27.0-32.0) pg MCHC (31.0-37.0) g/dL RDW Std Deviation (28.0-62.0) fl RDW Coeff of [place] (11.0-15.0) % Plt Count (150-400) K/uL MPV (7.40-12.00) fL Neut % (Auto) (48.0-80.0) % Lymph % (Auto) (16.0-40.0) % [place] % (Auto) (0.0-15.0) % Eos % (Auto) (0.0-7.0) % Baso % (Auto) (0.0-1.5) % Neut # (Auto) (1.4-5.7) K/uL Lymph # (Auto) (0.6-2.4) K/uL [place] # (Auto) (0.0-0.8) K/uL Eos # (Auto) (0.0-0.7) K/uL Baso # (Auto) (0.0-0.1) K/uL Nucleated RBC % /100WBC Nucleated RBCs # K/uL INR 1.01 Sodium (136-148) mmol/L Potassium (3.5-5.1) mmol/L Chloride (98-107) mmol/L Carbon Dioxide (21.0-32.0) mmol/L BUN (7.0-18.0) mg/dL Creatinine (0.8-1.3) mg/dL Est Cr Clr Drug Dosing mL/min Estimated GFR (MDRD) ml/min Glucose (74-106) mg/dL Calcium (8.5-10.1) mg/dL Phosphorus 2.5 L (2.6-4.7) mg/dL Magnesium 1.7 L (1.8-2.4) mg/dL Total Bilirubin (0.2-1.0) mg/dL AST (15-37) IU/L ALT (14-63) IU/L Alkaline Phosphatase (46-116) U/L Ammonia 38 (19-54) ug/dL Troponin I (0.000-0.056) ng/mL B-Natriuretic Peptide (<100) PG/ML Total Protein (6.4-8.2) g/dL Albumin (3.4-5.0) g/dL Globulin (2.6-4.0) g/dL Albumin/Globulin Ratio (0.9-1.6) Lipase (73-393) U/L Urine Color Urine Appearance Urine pH (5.0-8.0) Ur Specific [place] (1.001-1.035) Urine Protein (NEGATIVE) mg/dL Urine Glucose (UA) (NEGATIVE) mg/dL Urine Ketones (NEGATIVE) mg/dL Urine Occult Blood (NEGATIVE) Urine Nitrite (NEGATIVE) Urine Bilirubin (NEGATIVE) Urine Urobilinogen (<2.0) EU/dL Ur Leukocyte Esterase (NEGATIVE) Urine RBC (0-2/HPF) Urine WBC (0-5/HPF) Ur Epithelial Cells (NONE-FEW) Urine Bacteria (NEGATIVE) Urine Opiates Screen (NEGATIVE) Ur Oxycodone Screen (NEGATIVE) Urine Methadone Screen (NEGATIVE) Ur Barbiturates Screen (NEGATIVE) Ur Phencyclidine Scrn (NEGATIVE) Ur Amphetamine Screen (NEGATIVE) U Methamphetamines Scrn (NEGATIVE) U Benzodiazepines Scrn (NEGATIVE) U Cocaine Metab Screen (NEGATIVE) U Marijuana (THC) Screen (NEGATIVE) Ethyl Alcohol mg/dL Meds: Medications Generic Name Dose Route Start Last Admin Trade Name Freq PRN Reason Stop Dose Admin Acetaminophen 650 mg 03/29/20 17:02 Tylenol PO Q4H PRN Pain (Mild 1-3)/fever Albuterol/Ipratropium 3 ml 03/29/20 17:00 Duoneb 3.0-0.5 Mg/3 Ml NEB Q4HRRT PRN dyspnea/wheezing Bisacodyl 5 mg 03/29/20 17:02 Dulcolax PO DAILY PRN Constipation Docusate Sodium 100 mg 03/29/20 21:00 Colace PO BID CHECO Folic Acid 1 mg 03/30/20 09:00 Folic Acid SUBCUT DAILY CHECO Furosemide 40 mg 03/30/20 09:00 Lasix PO DAILY CHECO Thiamine HCl 500 mg/ Sodium 255 mls @ 510 mls/hr 03/29/20 17:45 03/29/20 18:20 Chloride IV 510 mls/hr Q8H CHECO Administration Labetalol HCl 20 mg 03/29/20 17:01 03/29/20 18:40 Normodyne IVPUSH 20 mg Q4H PRN Administration SBP>190 Lisinopril 40 mg 03/30/20 09:00 Prinivil PO DAILY CHECO Lorazepam 0 mg 03/29/20 16:59 03/29/20 18:57 Ativan IVPUSH 1 mg Q2H PRN Administration CIWAA Protocol Ondansetron HCl 4 mg 03/29/20 17:02 Zofran IVPUSH Q4H PRN Nausea Sodium Chloride 2.5 ml 03/29/20 17:04 Saline Flush FLUSH ASDIRECTED PRN Keep Vein Open Discontinued Medications Generic Name Dose Route Start Last Admin Trade Name Freq PRN Reason Stop Dose Admin Aspirin 324 mg 03/29/20 13:49 03/29/20 14:27 Aspirin PO 03/29/20 13:50 324 mg ONETIME ONE Administration Multivitamins/Minerals 10 ml/ 1,011.2 mls @ 999 mls/hr 03/29/20 11:39 03/29/20 12:14 Thiamine HCl 100 mg/ Folic IV 03/29/20 12:39 999 mls/hr Acid 1 mg/ Sodium Chloride ONETIME ONE Administration Magnesium Sulfate 2 gm in 50 mls @ 50 mls/hr 03/29/20 17:45 Magnesium Sulfate In Water Premix IV 03/29/20 18:44 ONETIME ONE Iopamidol 100 ml 03/29/20 15:11 03/29/20 15:23 Isovue Multipack-370 (76%) IVPUSH 03/29/20 15:12 100 ml ONETIME STA Administration Labetalol HCl 10 mg 03/29/20 11:47 03/29/20 12:15 Normodyne IVPUSH 03/29/20 11:48 2 ml ONETIME ONE Administration Protocol Labetalol HCl 10 mg 03/29/20 13:49 03/29/20 14:26 Normodyne IVPUSH 03/29/20 13:50 2 ml ONETIME ONE Administration Protocol Labetalol HCl 20 mg 03/29/20 16:12 03/29/20 16:26 Normodyne IVPUSH 03/29/20 16:13 2 ml ONETIME ONE Administration Protocol Lisinopril 40 mg 03/29/20 16:06 03/29/20 16:25 Prinivil PO 03/29/20 16:07 40 mg ONETIME ONE Administration Meclizine HCl 25 mg 03/29/20 13:50 03/29/20 14:26 Antivert PO 03/29/20 13:51 25 mg ONETIME ONE Administration Potassium Chloride 40 meq 03/29/20 17:45 03/29/20 18:19 Klor-Con M20 PO 03/29/20 17:46 40 meq ONETIME ONE Administration Sodium Chloride 2.5 ml 03/29/20 11:35 03/29/20 12:16 Saline Flush FLUSH 2.5 ml ASDIRECTED PRN Administration Keep Vein Open Sodium Chloride 10 ml 03/29/20 11:35 03/29/20 12:16 Saline Flush FLUSH 10 ml ASDIRECTED PRN Administration Keep Vein Open Sodium Phosphate 250 mg 03/29/20 17:45 03/29/20 18:19 Neutra-Phos PO 03/29/20 17:46 250 mg ONETIME ONE Administration Departure - Departure Time of Disposition: 19:18 Disposition: Refer to Observation Clinical Impression: Dizziness, Chronic alcohol abuse, Nonadherence to medication Syncope Qualifiers: Syncope type: unspecified Qualified Code(s): R55 - Syncope and collapse Chest pain Qualifiers: Chest pain type: unspecified Qualified Code(s): R07.9 - Chest pain, unspecified Hypertension Qualifiers: Hypertension type: unspecified Qualified Code(s): I10 - Essential (primary) hy pertension - Discharge Information Sepsis Event Note (ED) - Evaluation Sepsis Screening Result: No Definite Risk - Focused Exam Vital Signs: Vital Signs Temp Pulse Resp BP Pulse Ox 03/29/20 15:01 83 215/119 H 96 03/29/20 14:45 83 17 213/115 H 97 03/29/20 14:28 193/106 H 03/29/20 13:02 213/116 H 03/29/20 12:45 75 18 218/122 H 97 03/29/20 12:15 216/118 H 03/29/20 11:20 98.6 F 92 18 216/133 H 97
--- NOTE | 2020-03-29 11:48 | PCM.SN.2 ---
#1 Interpretation EKG Date: 03/29/20 Time: 11:43 Rhythm: NSR Rate (Beats/Min): 90 [place]: Normal P-Wave: Present QRS: Normal ST-T: Other (benign early repol pattern V2, V3 seen on old) QT: Normal OH/PQ Interval: 220 EKG Interpretation Comments: no acute ischemic changes
--- NOTE | 2020-03-29 12:29 | CT ---
Indication: Fall head injury Technique: Volumetric multidetector CT images of the head were obtained without the administration of low osmolar intravenous contrast. Comparison: None available Findings: There is no intra-axial or extra-axial fluid collection. There is no mass effect or midline shift. There is age-related cortical atrophy with mild sulcal widening and ex vacuo dilatation of the lateral ventricles. There are chronic small vessel disease changes in the subcortical and periventricular white matter without lost dudley-white differentiation. The orbits and their contents are grossly within normal limits. The bony calvarium is grossly intact. There is minimal mucosal thickening within the paranasal sinuses. The mastoid air cells are well aerated. Impression: 1. Age-related changes of the brain without acute intracranial abnormality. Please note that all CT scans at this facility use dose modulation, iterative reconstruction, and/or weight-based dosing when appropriate to reduce radiation dose to as low as reasonably achievable. Dictated by Sonny Ruiz MD @ Mar 29 2020 12:26PM Signed by Dr. Sonny Ruiz @ Mar 29 2020 12:27PM
--- NOTE | 2020-03-29 12:35 | CR ---
Indication: Dizziness Comparison: Single view chest dated September 24, 2019 Technique: Single AP view chest Findings: There is hyperinflation and chronic interstitial change. There is no focal consolidation, effusion, or pneumothorax. The cardiomediastinal silhouette is within normal limits. The bony thorax is grossly intact. Impression: Hyperinflation and chronic interstitial change without dense consolidation. Dictated by Sonny Ruiz MD @ Mar 29 2020 12:33PM Signed by Dr. Sonny Ruiz @ Mar 29 2020 12:34PM
[2020-03-29 13:02] LABS: BLOOD UREA NITROGEN,BUN 4 mg/dL (7.0-18.0); CARBON DIOXIDE,CO2 22.6 mmol/L (21.0-32.0); CHLORIDE,CL 97 mmol/L (98-107); GLUCOSE RANDOM 93 mg/dL (74-106); LIPASE 130 U/L (73-393); POTASSIUM,K 3.3 mmol/L (3.5-5.1); SODIUM,NA 135 mmol/L (136-148)
[2020-03-29] MEDS ORDERED: Aspirin 81 MG Tab.Chew PO ONE (13:49)
[2020-03-29] MEDS ORDERED: Meclizine 25 MG Tab PO ONE (13:50)
[2020-03-29] MEDS ORDERED: Iopamidol 755 MG/ML 500 ML Multipack Bottle IVPUSH STA (15:11)
--- NOTE | 2020-03-29 15:51 | CT ---
Indication: Vertigo Technique: Volumetric multidetector CT images of the cerebral vasculature were obtained after the administration of intravenous contrast using angiographic technique. Maximum intensity projections and 3-D reconstructions were performed. 100 cc Isovue 370 low osmolar contrast. Comparison: None available. Findings: HEAD: There is no midline shift or mass effect. There is no abnormal contrast enhancement. Bender-white differentiation is otherwise preserved. The orbits are grossly intact. There is minimal mucosal thickening within the paranasal sinuses. The mastoid air cells are clear. The skullbase carotid arteries are grossly within normal limits with minimal atherosclerotic calcification throughout the carotid siphons. 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 The middle cerebral arteries are grossly patent. The posterior cerebral arteries are grossly patent. Anterior and posterior communicating arteries are grossly patent. The basilar artery is grossly patent without significant dolichoectasia. There is dominant right and hypoplastic left vertebral artery without evidence of high-grade narrowing. Impression: No evidence of aneurysm, vascular malformation, or high grade narrowing of the intracranial arteries. Minimal scattered atherosclerotic calcification predominantly in the carotid siphons without evidence of high-grade narrowing. 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 Please note that all CT scans at this facility use dose modulation, iterative reconstruction, and/or weight-based dosing when appropriate to reduce radiation dose to as low as reasonably achievable. Dictated by Sonny Ruiz MD @ Mar 29 2020 3:42PM Signed by Dr. Sonny Ruiz @ Mar 29 2020 3:49PM
--- NOTE | 2020-03-29 16:00 | CT ---
Indication: Vertigo, unable to walk due to dizziness and balance issues Technique: Volumetric multidetector CT images of the cervical vasculature were obtained after the administration of intravenous contrast using angiographic technique. Maximum intensity projections and 3-D reconstructions were performed. Findings were interpreted according to the NASCET criteria. 100 cc Isovue 370 loads molar intravenous contrast Comparison: None available. Findings: The partially visualized brain parenchyma is normal in attenuation with normal contrast enhancement. The mastoid air cells are clear. The visualized [place] is grossly unremarkable. The oropharynx, hypopharynx, and larynx are unremarkable. There is no pathologically enlarged cervical lymph node. The thoracic aorta demonstrates a normal supraarch branching pattern without significant atherosclerotic disease. The common carotid arteries are patent. The right internal carotid artery demonstrates minimal calcified atherosclerotic plaque with approximately 40 percent narrowing just at the level of the bifurcation. The left internal carotid artery is patent with minimal calcified plaque but without evidence of significant atherosclerotic narrowing. There is a dominant right and a mildly hypoplastic left vertebral artery without evidence of high-grade narrowing or significant ostial stenosis. The cervical vertebral body heights are grossly maintained with moderate multilevel degenerative disc disease with disc height loss and marginal osteophyte formation. There is no acute osseous abnormality. Moderate to severe degenerative change of the atlantoaxial joint is appreciated. The lung apices are clear. Impression: No evidence of significant high-grade stenosis according to the NASCET categories. Please note that all CT scans at this facility use dose modulation, iterative reconstruction, and/or weight-based dosing when appropriate to reduce radiation dose to as low as reasonably achievable. Dictated by Sonny Ruiz MD @ Mar 29 2020 3:49PM Signed by Dr. Sonny Ruiz @ Mar 29 2020 3:58PM
[2020-03-29] MEDS ORDERED: Lisinopril 10 MG Tab PO ONE (16:06)
--- NOTE | 2020-03-29 16:25 | PCM.HP.2 ---
H&P History of Present Illness - General Date of Service: 03/29/20 Admit Problem/Dx: Admission Diagnosis/Problem Admission Diagnosis/Problem Alcohol withdrawal syndrome Source of Information: Patient History Limitations: Reports: No Limitations - History of Present Illness Initial Comments - Free Text/Narative: This 64-year-old male with PMH of hypertension chronic alcohol abuse, HFrEF, COPD presented to the ER with complaints of dizziness and difficulty walking along with a fall that occurred approximately 2 days ago. He reports to the ER that he passed out and hit his head but tells me that he slipped on the ice and hit the back of his head at that time he did lose consciousness but woke up. Today he is seeking medical evaluation. He feels his equilibrium is off and is very dizzy with some blurred vision. He denies any neck pain. No sore throat sinus congestion or cough. Reports that he has been slightly diaphoretic intermittently no overt fevers or chills at home. He reports that he is feeling as though his heart is palpitating. Denies any overt chest pain recently has had chest pain in the past. He reports mild shortness of breath. No abdominal pain but does report constipation. No black or bloody bowel movements recently. No dysuria. He confirms that he is daily alcohol user. Reports approximately 5 beers with 7 shots of hard liquor before bed. He reports his last drink was Friday evening or so. He reports that he does become tremulous without alcohol denies any previous seizures. He does report that he has been previously hospi talized for alcohol withdrawal symptoms. He has never sought treatment. He knows that he should stop. He reports 1 pack a week of tobacco use, he also reports marijuana use and past use of cocaine but not recently. He denies ever having an MA but he is a poor historian and very unclear about his medical history. In the ER no leukocytosis was noted hemoglobin 17.0 Sodium 135 potassium 3.3 chloride is 97 bilirubin is 1.1 alk phos is 137. UA negative U tox positive for THC EtOH 26. Chest x-ray which showed hyperinflation and chronic interstitial changes but no acute cardiopulmonary process. Head CT without contrast was negative CTA of the head and neck revealed no significant stenosis or aneurysm. Blood pressures in the ER noted to be elevated 200s to 240s/110s to 120s, heart rate 92 EKG none sinus rhythm with no ST segment elevation or T wave changes. In the ER he was treated with aspirin 325 Antivert 25 mg he is also given labetalol 10 mg x 2 doses for elevated pressures. Discussed blood pressures with ED providers they will give lisinopril 40 mg now along with labetalol 20 IV prior to admission. Patient will be admitted inpatient for alcohol withdrawal possible Wernicke's, and hypertensive urgency. Echo November 2018 revealed EF 30% with moderately decreased left ventricular systolic function left ventricle internal cavity size is dilated with systole, mild aortic valve sclerosis without stenosis trace mitral valve regurg as well as mild tricuspid valve regurgitation. It has been noted that he has canceled or no-showed for multiple cardiology follow-up appointments and he reports he has not been taking any medications at home for hypertension and heart failure. Head Pain Score (Numeric/FACES): 6 - Related Data Allergies/Adverse Reactions: Allergies Allergy/AdvReac Type Severity Reaction Status Date / Time adhesive tape Allergy Hives Verified 03/29/20 11:20 latex Allergy Hives Verified 03/29/20 11:20 Home Medications: Home Meds . [No Known Home Meds] 03/29/20 [History] Past Medical History HEENT History: Reports: None Cardiovascular History: Reports: Heart Failure, Heart Murmur, High Cholesterol, Hypertension, MA. Denies: Afib Respiratory History: Reports: COPD Gastrointestinal History: Reports: Hemorrhoids Genitourinary History: Reports: None. Denies: Acute Renal Failure Musculoskeletal History: Reports: Back Pain, Chronic Other Musculoskeletal History: Hx of torn rotator cuffs Neurological History: Reports: None Other Neuro History: Slipped on ice and fell on head winter 2017 Psychiatric History: Reports: Bipolar (Reports he has not been on medication for many years has had moments of manic episodes as well) Endocrine/Metabolic History: Reports: None, Obesity/BMI 30+. Denies: Diabetes, Type II Hematologic History: Reports: None Immunologic History: Reports: None Oncologic (Cancer) History: Reports: None Dermatologic History: Reports: Cellulitis - Infectious Disease History Infectious Disease History: Reports: None - Past Surgical History Head Surgeries/Procedures: Reports: None HEENT Surgical History: Reports: None Cardiovascular Surgical History: Reports: None Respiratory Surgical History: Reports: None GI Surgical History: Reports: Colonoscopy, Polypectomy Male Surgical History: Reports: None Endocrine Surgical History: Reports: None Neurological Surgical History: Reports: None Musculoskeletal Surgical History: Reports: Other (See Below) Oncologic Surgical History: Reports: None Social & Family History - Family History Family Medical History: No Pertinent Family History - Tobacco Use Tobacco Use Status *Q: Current Every Day Tobacco User Years of Tobacco use: 55 Packs/Tins Daily: 0.2 - Caffeine Use Caffeine Use: Reports: Coffee, Soda, Tea - Alcohol Use Alcohol Use History: Yes Days Per Week of Alcohol Use: 7 Number of Drinks Per Day: 15 Total Drinks Per Week: 105 Alcohol Use Frequency: Daily Desires Substance Cessation Medication: Refuses FDA Approved Med - Recreational Drug Use Recreational Drug Use: No H&P Review of Systems - Review of Systems: Review Of Systems: See Below General: Reports: Weakness (Generalized). Denies: Fever, Chills HEENT: Reports: Vertigo, Visual Changes (Blurred vision). Denies: Sore Throat Pulmonary: Reports: Shortness of Breath (Mild but near baseline). Denies: Cough Cardiovascular: Denies: Chest Pain, Edema Gastrointestinal: Reports: No Symptoms. Denies: Abdominal Pain, Black Stool, Bloody Stool, Nausea, Vomiting Genitourinary: Reports: No Symptoms. Denies: Dysuria, Frequency Skin: Reports: No Symptoms Psychiatric: Reports: No Symptoms Neurological: Reports: Dizziness, Tremors, Difficulty Walking. Denies: Headache, Numbness, Tingling Hematologic/Lymphatic: Reports: No Symptoms Immunologic: Reports: No Symptoms Exam - Exam Exam: See Below - Vital Signs Vital Signs: Last Vital Signs Temp 98.6 F 03/29/20 11:20 Pulse 83 03/29/20 15:01 Resp 17 03/29/20 14:45 BP 215/119 H 03/29/20 15:01 Pulse Ox 96 03/29/20 15:01 Weight: 113.398 kg - Exam Quality Assessment: DVT Prophylaxis. No: Supplemental Oxygen General: Alert, Oriented, Cooperative HEENT: Conjunctiva Clear, Nares Patent, Pupils Equal, Pupils Reactive, Other (Nystagmus noted) Lungs: Normal Respiratory Effort, Rhonchi, Wheezing Cardiovascular: Regular Rate, Regular Rhythm GI/Abdominal Exam: Normal Bowel Sounds, Soft, Non-Tender Back Exam: Normal Inspection, Full Range of Motion Extremities: Normal Inspection, Non-Tender, No Pedal Edema Neurological: Cranial Nerves Intact, Strength Equal Bilateral Neuro Extensive - Mental Status: Alert, Oriented x3, Normal Mood/Affect Neuro Extensive - Motor, Sensory, Reflexes: CN II-XII Intact, Ataxia Psychiatric: Alert, Normal Affect, Normal Mood, Withdrawal Symptoms (Tremors) - Patient Data Lab Results Last 24 hrs: Laboratory Results - last 24 hr 03/29/20 03/29/20 03/29/20 Range/Units 11:52 11:52 12:20 WBC 10.87 (4.0-11.0) K/uL RBC 5.29 (4.50-5.90) M/uL Hgb 17.0 (13.0-17.0) g/dL Hct 47.1 (38.0-50.0) % MCV 89.0 (80.0-98.0) fL MCH 32.1 H (27.0-32.0) pg MCHC 36.1 (31.0-37.0) g/dL RDW Std Deviation 41.7 (28.0-62.0) fl RDW Coeff of Julian 13 (11.0-15.0) % Plt Count 227 (150-400) K/uL MPV 8.90 (7.40-12.00) fL Neut % (Auto) 81.5 H (48.0-80.0) % Lymph % (Auto) 11.4 L (16.0-40.0) % [place] % (Auto) 6.4 (0.0-15.0) % Eos % (Auto) 0.4 (0.0-7.0) % Baso % (Auto) 0.3 (0.0-1.5) % Neut # (Auto) 8.9 H (1.4-5.7) K/uL Lymph # (Auto) 1.2 (0.6-2.4) K/uL [place] # (Auto) 0.7 (0.0-0.8) K/uL Eos # (Auto) 0.0 (0.0-0.7) K/uL Baso # (Auto) 0.0 (0.0-0.1) K/uL Nucleated RBC % 0.0 /100WBC Nucleated RBCs # 0 K/uL INR Sodium (136-148) mmol/L Potassium (3.5-5.1) mmol/L Chloride (98-107) mmol/L Carbon Dioxide (21.0-32.0) mmol/L BUN (7.0-18.0) mg/dL Creatinine (0.8-1.3) mg/dL Est Cr Clr Drug Dosing mL/min Estimated GFR (MDRD) ml/min Glucose (74-106) mg/dL Calcium (8.5-10.1) mg/dL Total Bilirubin (0.2-1.0) mg/dL AST (15-37) IU/L ALT (14-63) IU/L Alkaline Phosphatase (46-116) U/L Ammonia (19-54) ug/dL Troponin I (0.000-0.056) ng/mL B-Natriuretic Peptide (<100) PG/ML Total Protein (6.4-8.2) g/dL Albumin (3.4-5.0) g/dL Globulin (2.6-4.0) g/dL Albumin/Globulin Ratio (0.9-1.6) Lipase (73-393) U/L Urine Color YELLOW Urine Appearance CLEAR Urine pH 7.0 (5.0-8.0) Ur Specific [place] 1.025 (1.001-1.035) Urine Protein 100 H (NEGATIVE) mg/dL Urine Glucose (UA) NEGATIVE (NEGATIVE) mg/dL Urine Ketones TRACE H (NEGATIVE) mg/dL Urine Occult Blood TRACE-INTACT H (NEGATIVE) Urine Nitrite NEGATIVE (NEGATIVE) Urine Bilirubin NEGATIVE (NEGATIVE) Urine Urobilinogen 0.2 (<2.0) EU/dL Ur Leukocyte Esterase NEGATIVE (NEGATIVE) Urine RBC 0-2 (0-2/HPF) Urine WBC 0-1 (0-5/HPF) Ur Epithelial Cells RARE (NONE-FEW) Urine Bacteria FEW (NEGATIVE) Urine Opiates Screen NEGATIVE (NEGATIVE) Ur Oxycodone Screen NEGATIVE (NEGATIVE) Urine Methadone Screen NEGATIVE (NEGATIVE) Ur Barbiturates Screen NEGATIVE (NEGATIVE) Ur Phencyclidine Scrn NEGATIVE (NEGATIVE) Ur Amphetamine Screen NEGATIVE (NEGATIVE) U Methamphetamines Scrn NEGATIVE (NEGATIVE) U Benzodiazepines Scrn NEGATIVE (NEGATIVE) U Cocaine Metab Screen NEGATIVE (NEGATIVE) U Marijuana (THC) Screen POSITIVE (NEGATIVE) Ethyl Alcohol mg/dL 03/29/20 03/29/20 03/29/20 Range/Units 12:20 12:20 12:20 WBC (4.0-11.0) K/uL RBC (4.50-5.90) M/uL Hgb (13.0-17.0) g/dL Hct (38.0-50.0) % MCV (80.0-98.0) fL MCH (27.0-32.0) pg MCHC (31.0-37.0) g/dL RDW Std Deviation (28.0-62.0) fl RDW Coeff of Julian (11.0-15.0) % Plt Count (150-400) K/uL MPV (7.40-12.00) fL Neut % (Auto) (48.0-80.0) % Lymph % (Auto) (16.0-40.0) % [place] % (Auto) (0.0-15.0) % Eos % (Auto) (0.0-7.0) % Baso % (Auto) (0.0-1.5) % Neut # (Auto) (1.4-5.7) K/uL Lymph # (Auto) (0.6-2.4) K/uL [place] # (Auto) (0.0-0.8) K/uL Eos # (Auto) (0.0-0.7) K/uL Baso # (Auto) (0.0-0.1) K/uL Nucleated RBC % /100WBC Nucleated RBCs # K/uL INR Sodium 135 L (136-148) mmol/L Potassium 3.3 L (3.5-5.1) mmol/L Chloride 97 L (98-107) mmol/L Carbon Dioxide 22.6 (21.0-32.0) mmol/L BUN 4 L (7.0-18.0) mg/dL Creatinine 0.7 L (0.8-1.3) mg/dL Est Cr Clr Drug Dosing 115.04 mL/min Estimated GFR (MDRD) > 60.0 ml/min Glucose 93 (74-106) mg/dL Calcium 8.8 (8.5-10.1) mg/dL Total Bilirubin 1.1 H (0.2-1.0) mg/dL AST 35 (15-37) IU/L ALT 30 (14-63) IU/L Alkaline Phosphatase 137 H (46-116) U/L Ammonia (19-54) ug/dL Troponin I < 0.050 (0.000-0.056) ng/mL B-Natriuretic Peptide 38 (<100) PG/ML Total Protein 8.3 H (6.4-8.2) g/dL Albumin 4.1 (3.4-5.0) g/dL Globulin 4.2 H (2.6-4.0) g/dL Albumin/Globulin Ratio 1.0 (0.9-1.6) Lipase 130 (73-393) U/L Urine Color Urine Appearance Urine pH (5.0-8.0) Ur Specific [place] (1.001-1.035) Urine Protein (NEGATIVE) mg/dL Urine Glucose (UA) (NEGATIVE) mg/dL Urine Ketones (NEGATIVE) mg/dL Urine Occult Blood (NEGATIVE) Urine Nitrite (NEGATIVE) Urine Bilirubin (NEGATIVE) Urine Urobilinogen (<2.0) EU/dL Ur Leukocyte Esterase (NEGATIVE) Urine RBC (0-2/HPF) Urine WBC (0-5/HPF) Ur Epithelial Cells (NONE-FEW) Urine Bacteria (NEGATIVE) Urine Opiates Screen (NEGATIVE) Ur Oxycodone Screen (NEGATIVE) Urine Methadone Screen (NEGATIVE) Ur Barbiturates Screen (NEGATIVE) Ur Phencyclidine Scrn (NEGATIVE) Ur Amphetamine Screen (NEGATIVE) U Methamphetamines Scrn (NEGATIVE) U Benzodiazepines Scrn (NEGATIVE) U Cocaine Metab Screen (NEGATIVE) U Marijuana (THC) Screen (NEGATIVE) Ethyl Alcohol 26 mg/dL 03/29/20 03/29/20 Range/Units 12:20 15:05 WBC (4.0-11.0) K/uL RBC (4.50-5.90) M/uL Hgb (13.0-17.0) g/dL Hct (38.0-50.0) % MCV (80.0-98.0) fL MCH (27.0-32.0) pg MCHC (31.0-37.0) g/dL RDW Std Deviation (28.0-62.0) fl RDW Coeff of Julian (11.0-15.0) % Plt Count (150-400) K/uL MPV (7.40-12.00) fL Neut % (Auto) (48.0-80.0) % Lymph % (Auto) (16.0-40.0) % [place] % (Auto) (0.0-15.0) % Eos % (Auto) (0.0-7.0) % Baso % (Auto) (0.0-1.5) % Neut # (Auto) (1.4-5.7) K/uL Lymph # (Auto) (0.6-2.4) K/uL [place] # (Auto) (0.0-0.8) K/uL Eos # (Auto) (0.0-0.7) K/uL Baso # (Auto) (0.0-0.1) K/uL Nucleated RBC % /100WBC Nucleated RBCs # K/uL INR 1.01 Sodium (136-148) mmol/L Potassium (3.5-5.1) mmol/L Chloride (98-107) mmol/L Carbon Dioxide (21.0-32.0) mmol/L BUN (7.0-18.0) mg/dL Creatinine (0.8-1.3) mg/dL Est Cr Clr Drug Dosing mL/min Estimated GFR (MDRD) ml/min Glucose (74-106) mg/dL Calcium (8.5-10.1) mg/dL Total Bilirubin (0.2-1.0) mg/dL AST (15-37) IU/L ALT (14-63) IU/L Alkaline Phosphatase (46-116) U/L Ammonia 38 (19-54) ug/dL Troponin I (0.000-0.056) ng/mL B-Natriuretic Peptide (<100) PG/ML Total Protein (6.4-8.2) g/dL Albumin (3.4-5.0) g/dL Globulin (2.6-4.0) g/dL Albumin/Globulin Ratio (0.9-1.6) Lipase (73-393) U/L Urine Color Urine Appearance Urine pH (5.0-8.0) Ur Specific [place] (1.001-1.035) Urine Protein (NEGATIVE) mg/dL Urine Glucose (UA) (NEGATIVE) mg/dL Urine Ketones (NEGATIVE) mg/dL Urine Occult Blood (NEGATIVE) Urine Nitrite (NEGATIVE) Urine Bilirubin (NEGATIVE) Urine Urobilinogen (<2.0) EU/dL Ur Leukocyte Esterase (NEGATIVE) Urine RBC (0-2/HPF) Urine WBC (0-5/HPF) Ur Epithelial Cells (NONE-FEW) Urine Bacteria (NEGATIVE) Urine Opiates Screen (NEGATIVE) Ur Oxycodone Screen (NEGATIVE) Urine Methadone Screen (NEGATIVE) Ur Barbiturates Screen (NEGATIVE) Ur Phencyclidine Scrn (NEGATIVE) Ur Amphetamine Screen (NEGATIVE) U Methamphetamines Scrn (NEGATIVE) U Benzodiazepines Scrn (NEGATIVE) U Cocaine Metab Screen (NEGATIVE) U Marijuana (THC) Screen (NEGATIVE) Ethyl Alcohol mg/dL Result Diagrams: 03/29/20 12:20 03/29/20 12:20 Sepsis Event Note - Evaluation Sepsis Screening Result: No Definite Risk - Focused Exam Vital Signs: Vital Signs Temp Pulse Resp BP Pulse Ox 03/29/20 15:01 83 215/119 H 96 03/29/20 14:45 83 17 213/115 H 97 03/29/20 14:28 193/106 H 03/29/20 13:02 213/116 H 03/29/20 12:45 75 18 218/122 H 97 03/29/20 12:15 216/118 H 03/29/20 11:20 98.6 F 92 18 216/133 H 97 - Problem List (1) Hypertensive urgency SNOMED Code(s): 972707795 ICD Code: I16.0 - HYPERTENSIVE URGENCY Status: Acute Current Visit: Yes (2) Wernickes encephalopathy SNOMED Code(s): 89400667 ICD Code: E51.2 - WERNICKE'S ENCEPHALOPATHY Status: Acute Current Visit: Yes (3) Falls SNOMED Code(s): 5449143, 556354727 ICD Code: W19.XXXA - UNSPECIFIED FALL, INITIAL ENCOUNTER Status: Acute Current Visit: Yes Qualifiers: Encounter type: initial encounter Qualified Code(s): W19.XXXA - Unspecified fall, initial encounter (4) Alcohol withdrawal SNOMED Code(s): 642564001 ICD Code: F10.239 - ALCOHOL DEPENDENCE WITH WITHDRAWAL, UNSPECIFIED Status: Acute Current Visit: Yes (5) Hypokalemia SNOMED Code(s): 37086136 ICD Code: E87.6 - HYPOKALEMIA Status: Acute Current Visit: Yes (6) Alcohol abuse SNOMED Code(s): 78898517 ICD Code: F10.10 - ALCOHOL ABUSE, UNCOMPLICATED Status: Chronic Current Visit: Yes (7) Bipolar 1 disorder SNOMED Code(s): 712685096 ICD Code: F31.9 - BIPOLAR DISORDER, UNSPECIFIED Status: Chronic Current Visit: Yes (8) COPD (chronic obstructive pulmonary disease) SNOMED Code(s): 03436456 ICD Code: J44.9 - CHRONIC OBSTRUCTIVE PULMONARY DISEASE, UNSPECIFIED S tatus: Chronic Current Visit: Yes (9) Tobacco use SNOMED Code(s): 691114160 ICD Code: Z72.0 - TOBACCO USE Status: Chronic Current Visit: Yes (10) Hypertension SNOMED Code(s): 48168365 ICD Code: I10 - ESSENTIAL (PRIMARY) HYPERTENSION Status: Chronic Current Visit: No (11) Noncompliance with medication regimen SNOMED Code(s): 968723654 ICD Code: Z91.14 - PATIENT'S OTHER NONCOMPLIANCE WITH MEDICATION REGIMEN Status: Chronic Current Visit: No Problem List Initiated/Reviewed/Updated: Yes Orders Last 24hrs: Active Orders 24 hr Category Date Time Status Patient Status [ADT] Stat ADT 03/29/20 16:17 Ordered Cardiac Monitoring [RC] . DIRECTED Care 03/29/20 11:35 Active EKG Documentation Completion [RC] STAT Care 03/29/20 11:35 Active CORONAVIRUS COVID-19 PCR PHL Stat Lab 03/29/20 14:40 Ordered Sodium Chloride 0.9% [Saline Flush] Med 03/29/20 11:35 Active 10 ml FLUSH ASDIRECTED PRN Sodium Chloride 0.9% [Saline Flush] Med 03/29/20 11:35 Active 2.5 ml FLUSH ASDIRECTED PRN Saline Lock Insert [OM.PC] Stat Oth 03/29/20 11:35 Ordered Medication Orders Sodium Chloride (Saline Flush) 2.5 ml FLUSH ASDIRECTED PRN PRN Reason: Keep Vein Open Last Admin: 03/29/20 12:16 Dose: 2.5 ml Documented by: [id number] Sodium Chloride (Saline Flush) 10 ml FLUSH ASDIRECTED PRN PRN Reason: Keep Vein Open Last Admin: 03/29/20 12:16 Dose: 10 ml Documented by: [id number] Assessment/Plan Comment:: This 64-year-old male admitted with hypertensive urgency Wernicke's, alcohol withdrawal 1. Hypertensive urgency - Monitor closely - Treat with lisinopril 40 mg and labetalol 20 mg IV in the ER - Labetolol PRN SBP >190 - Obtain ECHO - Monitor on telemetry 2. Wernicke's encephalopathy -Treat with high-dose thiamine replacement, 500 mg IV 3 times daily for 2 days then 250 mg IV daily after that for 5 days. -Consult PT 3. Alcohol withdrawal -CIWAA assessment with Ativan protocol -Supplement thiamine and folic acid -Seizure precautions 4. COPD -No COPD exacerbation noted -DuoNebs as needed 5. HFrEF: - Does not appear in exacerbation - Obtain ECHO - Restart Lasix 40 mg po daily - Strict I/O, daily weight, [place] diet VTE prophylaxis: SCDs CODE STATUS: Full code Dispo 2 to 3 days - Mortality Measure Prognosis:: Good
[2020-03-29] MEDS ORDERED: Albuterol/Ipratropium 3.0-0.5 MG/3 ML Neb Soln NEB PRN (17:00)
[2020-03-29] MEDS ORDERED: Ondansetron 4 MG/2 ML SDV IVPUSH PRN (17:02)
[2020-03-29] MEDS ORDERED: Bisacodyl 5 MG Tab PO PRN (17:02)
[2020-03-29] MEDS ORDERED: Potassium Chloride 20 MEQ Tab.ER PO ONE (17:45)
[2020-03-29] MEDS ORDERED: Magnesium Sulfate/Water 2 GM/50 ML BAG IV ONE (17:45)
[2020-03-29] MEDS ORDERED: Phosphorus #1 250 MG Tab PO ONE (17:45)
[2020-03-29] MEDS ORDERED: Magnesium Sulfate/Water 2 GM/50 ML Premix Bag IV ONE (17:45)
[2020-03-29] MEDS: Thiamine 500 MG in Sodium Chloride 0.9% 250 ML IV SCH (18:20)
[2020-03-29] MEDS: Labetalol 100 MG/20 ML MDV IVPUSH PRN (18:40)
[2020-03-29] MEDS: LORazepam 2 MG/ML SDV IVPUSH PRN (18:57)
[2020-03-29] MEDS: Acetaminophen 325 MG Tab PO PRN (19:50)
[2020-03-29] MEDS: Docusate Sodium 100 MG Cap PO SCH (23:24)
[2020-03-30] MEDS: Thiamine 500 MG in Sodium Chloride 0.9% 250 ML IV SCH ×3 (02:28→17:59)
[2020-03-30] MEDS: Acetaminophen 325 MG Tab PO PRN ×2 (03:11→22:39)
[2020-03-30 06:28] LABS: BLOOD UREA NITROGEN,BUN 9 mg/dL (7.0-18.0); CARBON DIOXIDE,CO2 27.9 mmol/L (21.0-32.0); CHLORIDE,CL 102 mmol/L (98-107); GLUCOSE RANDOM 105 mg/dL (74-106); POTASSIUM,K 2.8 mmol/L (3.5-5.1); SODIUM,NA 138 mmol/L (136-148)
--- NOTE | 2020-03-30 08:07 | PCM.PN ---
- General Info Date of Service: 03/30/20 Admission Dx/Problem (Free Text): Admission Diagnosis/Problem Admission Diagnosis/Problem Alcohol withdrawal syndrome Subjective Update: Reports he continues to have dizziness and inability to focus well. Denies any syncopal episodes overnight. No chest pain. Shortness of breath is improving. Denies any productive cough. No trouble urinating and no abdominal pain. Functional Status: Reports: Pain Controlled, Tolerating Diet, Ambulating, Urinating - Review of Systems Pulmonary: Reports: Shortness of Breath (Improving), Cough (Dry), Wheezing (Intermittently). Denies: Sputum Cardiovascular: Reports: No Symptoms. Denies: Chest Pain Gastrointestinal: Reports: No Symptoms. Denies: Abdominal Pain, Nausea, Vomiting Genitourinary: Reports: No Symptoms. Denies: Dysuria, Frequency, Burning Musculoskeletal: Reports: No Symptoms Skin: Reports: No Symptoms Neurological: Reports: Dizziness, Tremors, Difficulty Walking (Feels very off balance and like his equilibrium is off mild improvement from yesterday). Denies: Headache, Numbness Psychiatric: Reports: No Symptoms - Patient Data Vitals - Most Recent: Last Vital Signs Temp 97.6 F 03/30/20 04:30 Pulse 74 03/30/20 04:30 Resp 17 03/30/20 04:30 BP 172/84 H 03/30/20 04:30 Pulse Ox 97 03/30/20 04:30 Weight - Most Recent: 112.446 kg I&O - Last 24 Hours: Intake & Output 03/29/20 03/30/20 03/30/20 22:59 06:59 14:59 Intake Total 940 Output Total 475 Balance 465 Lab Results Last 24 Hours: Laboratory Results - last 24 hr 03/29/20 03/29/20 03/29/20 Range/Units 11:52 11:52 12:20 WBC 10.87 (4.0-11.0) K/uL RBC 5.29 (4.50-5.90) M/uL Hgb 17.0 (13.0-17.0) g/dL Hct 47.1 (38.0-50.0) % MCV 89.0 (80.0-98.0) fL MCH 32.1 H (27.0-32.0) pg MCHC 36.1 (31.0-37.0) g/dL RDW Std Deviation 41.7 (28.0-62.0) fl RDW Coeff of [place] 13 (11.0-15.0) % Plt Count 227 (150-400) K/uL MPV 8.90 (7.40-12.00) fL Neut % (Auto) 81.5 H (48.0-80.0) % Lymph % (Auto) 11.4 L (16.0-40.0) % [place] % (Auto) 6.4 (0.0-15.0) % Eos % (Auto) 0.4 (0.0-7.0) % Baso % (Auto) 0.3 (0.0-1.5) % Neut # (Auto) 8.9 H (1.4-5.7) K/uL Lymph # (Auto) 1.2 (0.6-2.4) K/uL [place] # (Auto) 0.7 (0.0-0.8) K/uL Eos # (Auto) 0.0 (0.0-0.7) K/uL Baso # (Auto) 0.0 (0.0-0.1) K/uL Nucleated RBC % 0.0 /100WBC Nucleated RBCs # 0 K/uL INR Sodium (136-148) mmol/L Potassium (3.5-5.1) mmol/L Chloride (98-107) mmol/L Carbon Dioxide (21.0-32.0) mmol/L BUN (7.0-18.0) mg/dL Creatinine (0.8-1.3) mg/dL Est Cr Clr Drug Dosing mL/min Estimated GFR (MDRD) ml/min Glucose (74-106) mg/dL Calcium (8.5-10.1) mg/dL Phosphorus (2.6-4.7) mg/dL Magnesium (1.8-2.4) mg/dL Total Bilirubin (0.2-1.0) mg/dL AST (15-37) IU/L ALT (14-63) IU/L Alkaline Phosphatase (46-116) U/L Ammonia (19-54) ug/dL Troponin I (0.000-0.056) ng/mL B-Natriuretic Peptide (<100) PG/ML Total Protein (6.4-8.2) g/dL Albumin (3.4-5.0) g/dL Globulin (2.6-4.0) g/dL Albumin/Globulin Ratio (0.9-1.6) Lipase (73-393) U/L Urine Color YELLOW Urine Appearance CLEAR Urine pH 7.0 (5.0-8.0) Ur Specific [place] 1.025 (1.001-1.035) Urine Protein 100 H (NEGATIVE) mg/dL Urine Glucose (UA) NEGATIVE (NEGATIVE) mg/dL Urine Ketones TRACE H (NEGATIVE) mg/dL Urine Occult Blood TRACE-INTACT H (NEGATIVE) Urine Nitrite NEGATIVE (NEGATIVE) Urine Bilirubin NEGATIVE (NEGATIVE) Urine Urobilinogen 0.2 (<2.0) EU/dL Ur Leukocyte Esterase NEGATIVE (NEGATIVE) Urine RBC 0-2 (0-2/HPF) Urine WBC 0-1 (0-5/HPF) Ur Epithelial Cells RARE (NONE-FEW) Urine Bacteria FEW (NEGATIVE) Urine Opiates Screen NEGATIVE (NEGATIVE) Ur Oxycodone Screen NEGATIVE (NEGATIVE) Urine Methadone Screen NEGATIVE (NEGATIVE) Ur Barbiturates Screen NEGATIVE (NEGATIVE) Ur Phencyclidine Scrn NEGATIVE (NEGATIVE) Ur Amphetamine Screen NEGATIVE (NEGATIVE) U Methamphetamines Scrn NEGATIVE (NEGATIVE) U Benzodiazepines Scrn NEGATIVE (NEGATIVE) U Cocaine Metab Screen NEGATIVE (NEGATIVE) U Marijuana (THC) Screen POSITIVE (NEGATIVE) Ethyl Alcohol mg/dL SARS-CoV-2 RNA ([place]) (NEGATIVE) 03/29/20 03/29/20 03/29/20 Range/Units 12:20 12:20 12:20 WBC (4.0-11.0) K/uL RBC (4.50-5.90) M/uL Hgb (13.0-17.0) g/dL Hct (38.0-50.0) % MCV (80.0-98.0) fL MCH (27.0-32.0) pg MCHC (31.0-37.0) g/dL RDW Std Deviation (28.0-62.0) fl RDW Coeff of [place] (11.0-15.0) % Plt Count (150-400) K/uL MPV (7.40-12.00) fL Neut % (Auto) (48.0-80.0) % Lymph % (Auto) (16.0-40.0) % [place] % (Auto) (0.0-15.0) % Eos % (Auto) (0.0-7.0) % Baso % (Auto) (0.0-1.5) % Neut # (Auto) (1.4-5.7) K/uL Lymph # (Auto) (0.6-2.4) K/uL [place] # (Auto) (0.0-0.8) K/uL Eos # (Auto) (0.0-0.7) K/uL Baso # (Auto) (0.0-0.1) K/uL Nucleated RBC % /100WBC Nucleated RBCs # K/uL INR Sodium 135 L (136-148) mmol/L Potassium 3.3 L (3.5-5.1) mmol/L Chloride 97 L (98-107) mmol/L Carbon Dioxide 22.6 (21.0-32.0) mmol/L BUN 4 L (7.0-18.0) mg/dL Creatinine 0.7 L (0.8-1.3) mg/dL Est Cr Clr Drug Dosing 115.04 mL/min Estimated GFR (MDRD) > 60.0 ml/min Glucose 93 (74-106) mg/dL Calcium 8.8 (8.5-10.1) mg/dL Phosphorus (2.6-4.7) mg/dL Magnesium (1.8-2.4) mg/dL Total Bilirubin 1.1 H (0.2-1.0) mg/dL AST 35 (15-37) IU/L ALT 30 (14-63) IU/L Alkaline Phosphatase 137 H (46-116) U/L Ammonia (19-54) ug/dL Troponin I < 0.050 (0.000-0.056) ng/mL B-Natriuretic Peptide 38 (<100) PG/ML Total Protein 8.3 H (6.4-8.2) g/dL Albumin 4.1 (3.4-5.0) g/dL Globulin 4.2 H (2.6-4.0) g/dL Albumin/Globulin Ratio 1.0 (0.9-1.6) Lipase 130 (73-393) U/L Urine Color Urine Appearance Urine pH (5.0-8.0) Ur Specific [place] (1.001-1.035) Urine Protein (NEGATIVE) mg/dL Urine Glucose (UA) (NEGATIVE) mg/dL Urine Ketones (NEGATIVE) mg/dL Urine Occult Blood (NEGATIVE) Urine Nitrite (NEGATIVE) Urine Bilirubin (NEGATIVE) Urine Urobilinogen (<2.0) EU/dL Ur Leukocyte Esterase (NEGATIVE) Urine RBC (0-2/HPF) Urine WBC (0-5/HPF) Ur Epithelial Cells (NONE-FEW) Urine Bacteria (NEGATIVE) Urine Opiates Screen (NEGATIVE) Ur Oxycodone Screen (NEGATIVE) Urine Methadone Screen (NEGATIVE) Ur Barbiturates Screen (NEGATIVE) Ur Phencyclidine Scrn (NEGATIVE) Ur Amphetamine Screen (NEGATIVE) U Methamphetamines Scrn (NEGATIVE) U Benzodiazepines Scrn (NEGATIVE) U Cocaine Metab Screen (NEGATIVE) U Marijuana (THC) Screen (NEGATIVE) Ethyl Alcohol 26 mg/dL SARS-CoV-2 RNA ([place]) (NEGATIVE) 03/29/20 03/29/20 03/29/20 Range/Units 12:20 15:05 15:05 WBC (4.0-11.0) K/uL RBC (4.50-5.90) M/uL Hgb (13.0-17.0) g/dL Hct (38.0-50.0) % MCV (80.0-98.0) fL MCH (27.0-32.0) pg MCHC (31.0-37.0) g/dL RDW Std Deviation (28.0-62.0) fl RDW Coeff of [place] (11.0-15.0) % Plt Count (150-400) K/uL MPV (7.40-12.00) fL Neut % (Auto) (48.0-80.0) % Lymph % (Auto) (16.0-40.0) % [place] % (Auto) (0.0-15.0) % Eos % (Auto) (0.0-7.0) % Baso % (Auto) (0.0-1.5) % Neut # (Auto) (1.4-5.7) K/uL Lymph # (Auto) (0.6-2.4) K/uL [place] # (Auto) (0.0-0.8) K/uL Eos # (Auto) (0.0-0.7) K/uL Baso # (Auto) (0.0-0.1) K/uL Nucleated RBC % /100WBC Nucleated RBCs # K/uL INR 1.01 Sodium (136-148) mmol/L Potassium (3.5-5.1) mmol/L Chloride (98-107) mmol/L Carbon Dioxide (21.0-32.0) mmol/L BUN (7.0-18.0) mg/dL Creatinine (0.8-1.3) mg/dL Est Cr Clr Drug Dosing mL/min Estimated GFR (MDRD) ml/min Glucose (74-106) mg/dL Calcium (8.5-10.1) mg/dL Phosphorus 2.5 L (2.6-4.7) mg/dL Magnesium 1.7 L (1.8-2.4) mg/dL Total Bilirubin (0.2-1.0) mg/dL AST (15-37) IU/L ALT (14-63) IU/L Alkaline Phosphatase (46-116) U/L Ammonia 38 (19-54) ug/dL Troponin I (0.000-0.056) ng/mL B-Natriuretic Peptide (<100) PG/ML Total Protein (6.4-8.2) g/dL Albumin (3.4-5.0) g/dL Globulin (2.6-4.0) g/dL Albumin/Globulin Ratio (0.9-1.6) Lipase (73-393) U/L Urine Color Urine Appearance Urine pH (5.0-8.0) Ur Specific [place] (1.001-1.035) Urine Protein (NEGATIVE) mg/dL Urine Glucose (UA) (NEGATIVE) mg/dL Urine Ketones (NEGATIVE) mg/dL Urine Occult Blood (NEGATIVE) Urine Nitrite (NEGATIVE) Urine Bilirubin (NEGATIVE) Urine Urobilinogen (<2.0) EU/dL Ur Leukocyte Esterase (NEGATIVE) Urine RBC (0-2/HPF) Urine WBC (0-5/HPF) Ur Epithelial Cells (NONE-FEW) Urine Bacteria (NEGATIVE) Urine Opiates Screen (NEGATIVE) Ur Oxycodone Screen (NEGATIVE) Urine Methadone Screen (NEGATIVE) Ur Barbiturates Screen (NEGATIVE) Ur Phencyclidine Scrn (NEGATIVE) Ur Amphetamine Screen (NEGATIVE) U Methamphetamines Scrn (NEGATIVE) U Benzodiazepines Scrn (NEGATIVE) U Cocaine Metab Screen (NEGATIVE) U Marijuana (THC) Screen (NEGATIVE) Ethyl Alcohol mg/dL SARS-CoV-2 RNA ([place]) (NEGATIVE) 03/29/20 03/30/20 03/30/20 Range/Units 16:32 05:01 05:01 WBC 9.80 (4.0-11.0) K/uL RBC 5.05 (4.50-5.90) M/uL Hgb 15.6 (13.0-17.0) g/dL Hct 45.5 (38.0-50.0) % MCV 90.1 (80.0-98.0) fL MCH 30.9 (27.0-32.0) pg MCHC 34.3 (31.0-37.0) g/dL RDW Std Deviation 42.4 (28.0-62.0) fl RDW Coeff of [place] 13 (11.0-15.0) % Plt Count 219 (150-400) K/uL MPV 9.40 (7.40-12.00) fL Neut % (Auto) 72.6 (48.0-80.0) % Lymph % (Auto) 19.1 (16.0-40.0) % [place] % (Auto) 7.2 (0.0-15.0) % Eos % (Auto) 0.9 (0.0-7.0) % Baso % (Auto) 0.2 (0.0-1.5) % Neut # (Auto) 7.1 H (1.4-5.7) K/uL Lymph # (Auto) 1.9 (0.6-2.4) K/uL [place] # (Auto) 0.7 (0.0-0.8) K/uL Eos # (Auto) 0.1 (0.0-0.7) K/uL Baso # (Auto) 0.0 (0.0-0.1) K/uL Nucleated RBC % 0.0 /100WBC Nucleated RBCs # 0 K/uL INR Sodium 138 (136-148) mmol/L Potassium 2.8 L (3.5-5.1) mmol/L Chloride 102 (98-107) mmol/L Carbon Dioxide 27.9 (21.0-32.0) mmol/L BUN 9 (7.0-18.0) mg/dL Creatinine 1.1 (0.8-1.3) mg/dL Est Cr Clr Drug Dosing 73.21 mL/min Estimated GFR (MDRD) > 60.0 ml/min Glucose 105 (74-106) mg/dL Calcium 8.5 (8.5-10.1) mg/dL Phosphorus 3.1 (2.6-4.7) mg/dL Magnesium 1.8 (1.8-2.4) mg/dL Total Bilirubin 1.3 H (0.2-1.0) mg/dL AST 19 (15-37) IU/L ALT 24 (14-63) IU/L Alkaline Phosphatase 109 (46-116) U/L Ammonia (19-54) ug/dL Troponin I (0.000-0.056) ng/mL B-Natriuretic Peptide (<100) PG/ML Total Protein 6.9 (6.4-8.2) g/dL Albumin 3.4 (3.4-5.0) g/dL Globulin 3.5 (2.6-4.0) g/dL Albumin/Globulin Ratio 1.0 (0.9-1.6) Lipase (73-393) U/L Urine Color Urine Appearance Urine pH (5.0-8.0) Ur Specific [place] (1.001-1.035) Urine Protein (NEGATIVE) mg/dL Urine Glucose (UA) (NEGATIVE) mg/dL Urine Ketones (NEGATIVE) mg/dL Urine Occult Blood (NEGATIVE) Urine Nitrite (NEGATIVE) Urine Bilirubin (NEGATIVE) Urine Urobilinogen (<2.0) EU/dL Ur Leukocyte Esterase (NEGATIVE) Urine RBC (0-2/HPF) Urine WBC (0-5/HPF) Ur Epithelial Cells (NONE-FEW) Urine Bacteria (NEGATIVE) Urine Opiates Screen (NEGATIVE) Ur Oxycodone Screen (NEGATIVE) Urine Methadone Screen (NEGATIVE) Ur Barbiturates Screen (NEGATIVE) Ur Phencyclidine Scrn (NEGATIVE) Ur Amphetamine Screen (NEGATIVE) U Methamphetamines Scrn (NEGATIVE) U Benzodiazepines Scrn (NEGATIVE) U Cocaine Metab Screen (NEGATIVE) U Marijuana (THC) Screen (NEGATIVE) Ethyl Alcohol mg/dL SARS-CoV-2 RNA ([place]) NEGATIVE (NEGATIVE) Med Orders - Current: Current Medications Acetaminophen (Tylenol) 650 mg PO Q4H PRN PRN Reason: Pain (Mild 1-3)/fever Last Admin: 03/30/20 03:11 Dose: 650 mg Documented by: Albuterol/Ipratropium (Duoneb 3.0-0.5 Mg/3 Ml) 3 ml NEB Q4HRRT PRN PRN Reason: dyspnea/wheezing Bisacodyl (Dulcolax) 5 mg PO DAILY PRN PRN Reason: Constipation Docusate Sodium (Colace) 100 mg PO BID [facility] Last Admin: 03/29/20 23:24 Dose: 100 mg Documented by: Folic Acid (Folic Acid) 1 mg SUBCUT DAILY [facility] Furosemide (Lasix) 40 mg PO DAILY [facility] Thiamine HCl 500 mg/ Sodium (Chloride) 255 mls @ 510 mls/hr IV Q8H [facility] Last Admin: 03/30/20 02:28 Dose: 510 mls/hr Documented by: Labetalol HCl (Normodyne) 20 mg IVPUSH Q4H PRN PRN Reason: SBP>190 Last Admin: 03/29/20 18:40 Dose: 20 mg Documented by: Lisinopril (Prinivil) 40 mg PO DAILY [facility] Lorazepam (Ativan) 0 mg IVPUSH Q2H PRN; Protocol PRN Reason: CIWAA Last Admin: 03/29/20 18:57 Dose: 1 mg Documented by: Ondansetron HCl (Zofran) 4 mg IVPUSH Q4H PRN PRN Reason: Nausea Potassium Chloride (Klor-Con M20) 40 meq PO BID@0815,1130 [facility] Sodium Chloride (Saline Flush) 2.5 ml FLUSH ASDIRECTED PRN PRN Reason: Keep Vein Open Discontinued Medications Aspirin (Aspirin) 324 mg PO ONETIME ONE Stop: 03/29/20 13:50 Last Admin: 03/29/20 14:27 Dose: 324 mg Documented by: Multivitamins/Minerals 10 ml/Thiamine HCl 100 mg/ Folic Acid 1 mg/ Sodium Chloride 1,011.2 mls @ 999 mls/hr IV ONETIME ONE Stop: 03/29/20 12:39 Last Admin: 03/29/20 12:14 Dose: 999 mls/hr Documented by: Magnesium Sulfate (Magnesium Sulfate In Water Premix) 2 gm in 50 mls @ 50 mls/hr IV ONETIME ONE Stop: 03/29/20 18:44 Last Admin: 03/29/20 19:22 Dose: 50 mls/hr Documented by: Iopamidol (Isovue Multipack-370 (76%)) 100 ml IVPUSH ONETIME STA Stop: 03/29/20 15:12 Last Admin: 03/29/20 15:23 Dose: 100 ml Documented by: Labetalol HCl (Normodyne) 10 mg IVPUSH ONETIME ONE; Protocol Stop: 03/29/20 11:48 Last Admin: 03/29/20 12:15 Dose: 2 ml Documented by: Labetalol HCl (Normodyne) 10 mg IVPUSH ONETIME ONE; Protocol Stop: 03/29/20 13:50 Last Admin: 03/29/20 14:26 Dose: 2 ml Documented by: Labetalol HCl (Normodyne) 20 mg IVPUSH ONETIME ONE; Protocol Stop: 03/29/20 16:13 Last Admin: 03/29/20 16:26 Dose: 2 ml Documented by: Lisinopril (Prinivil) 40 mg PO ONETIME ONE Stop: 03/29/20 16:07 Last Admin: 03/29/20 16:25 Dose: 40 mg Documented by: Meclizine HCl (Antivert) 25 mg PO ONETIME ONE Stop: 03/29/20 13:51 Last Admin: 03/29/20 14:26 Dose: 25 mg Documented by: Potassium Chloride (Klor-Con M20) 40 meq PO ONETIME ONE Stop: 03/29/20 17:46 Last Admin: 03/29/20 18:19 Dose: 40 meq Documented by: Sodium Chloride (Saline Flush) 2.5 ml FLUSH ASDIRECTED PRN PRN Reason: Keep Vein Open Last Admin: 03/29/20 12:16 Dose: 2.5 ml Documented by: Sodium Chloride (Saline Flush) 10 ml FLUSH ASDIRECTED PRN PRN Reason: Keep Vein Open Last Admin: 03/29/20 12:16 Dose: 10 ml Documented by: Sodium Phosphate (Neutra-Phos) 250 mg PO ONETIME ONE Stop: 03/29/20 17:46 Last Admin: 03/29/20 18:19 Dose: 250 mg Documented by: - Exam General: Alert, Oriented, Cooperative, No Acute Distress Lungs: Normal Respiratory Effort, Rhonchi (Improved from yesterday) Cardiovascular: Regular Rate, Regular Rhythm, No Murmurs GI/Abdominal Exam: Normal Bowel Sounds, Soft, Non-Tender Back Exam: Normal Inspection, Full Range of Motion Extremities: Normal Inspection, Normal Range of Motion, Non-Tender, No Pedal Edema Neurological: No New Focal Deficit Psy/Mental Status: Alert, Normal Affect, Normal Mood Sepsis Event Note - Evaluation Sepsis Screening Result: No Definite Risk - Focused Exam Vital Signs: Vital Signs Temp Pulse Resp BP Pulse Ox 03/30/20 04:30 97.6 F 74 17 172/84 H 97 03/29/20 23:45 98.5 F 73 17 171/84 H 96 - Problem List & Annotations (1) Hypertensive urgency SNOMED Code(s): 853693081 Code(s): I16.0 - HYPERTENSIVE URGENCY Status: Acute Current Visit: Yes (2) Wernickes encephalopathy SNOMED Code(s): 52083992 Code(s): E51.2 - WERNICKE'S ENCEPHALOPATHY Status: Acute Current Visit: Yes (3) Falls SNOMED Code(s): 1866822, 655434450 Code(s): W19.XXXA - UNSPECIFIED FALL, INITIAL ENCOUNTER Status: Acute Current Visit: Yes Qualifiers: Encounter type: initial encounter Qualified Code(s): W19.XXXA - Unspecified fall, initial encounter (4) Alcohol withdrawal SNOMED Code(s): 321907536 Code(s): F10.239 - ALCOHOL DEPENDENCE WITH WITHDRAWAL, UNSPECIFIED Status: Acute Current Visit: Yes (5) Hypokalemia SNOMED Code(s): 62965091 Code(s): E87.6 - HYPOKALEMIA Status: Acute Current Visit: Yes (6) Alcohol abuse SNOMED Code(s): 42989873 Code(s): F10.10 - ALCOHOL ABUSE, UNCOMPLICATED Status: Chronic Current Visit: Yes (7) Bipolar 1 disorder SNOMED Code(s): 241191179 Code(s): F31.9 - BIPOLAR DISORDER, UNSPECIFIED Status: Chronic Current Visit: Yes (8) COPD (chronic obstructive pulmonary disease) SNOMED Code(s): 60663667 Code(s): J44.9 - CHRONIC OBSTRUCTIVE PULMONARY DISEASE, UNSPECIFIED Status: Chronic Current Visit: Yes (9) Tobacco use SNOMED Code(s): 943066086 Code(s): Z72.0 - TOBACCO USE Status: Chronic Current Visit: Yes (10) Hypertension SNOMED Code(s): 90964611 Code(s): I10 - ESSENTIAL (PRIMARY) HYPERTENSION Status: Chronic Current Visit: Yes Qualifiers: Hypertension type: unspecified Qualified Code(s): I10 - Essential (primary) hypertension (11) Noncompliance with medication regimen SNOMED Code(s): 906798202 Code(s): Z91.14 - PATIENT'S OTHER NONCOMPLIANCE WITH MEDICATION REGIMEN Status: Chronic Current Visit: Yes - Problem List Review Problem List Initiated/Reviewed/Updated: Yes - My Orders Last 24 Hours: My Active Orders 03/29/20 Dinner 2 Gram Sodium Diet [DIET] 03/29/20 16:17 Patient Status [ADT] Stat 03/29/20 16:59 Telemetry Monitoring [Cardiac Monitoring] [RC] Q8H LORazepam [Ativan] See Protocol IVPUSH Q2H PRN 03/29/20 17:00 RT Aerosol Therapy [RC] ASDIRECTED Albuterol/Ipratropium [DuoNeb 3.0-0.5 MG/3 ML] 3 ml NEB Q4HRRT PRN 03/29/20 17:01 Labetalol [Normodyne] 20 mg IVPUSH Q4H PRN 03/29/20 17:02 CIWAA Assessment [RC] Q4H Height and Weight [RC] DAILY Intake and Output Strict [RC] ASDIRECTED Oxygen Therapy [RC] PRN Up With Assistance [RC] ASDIRECTED VTE/DVT Education [RC] PER UNIT ROUTINE Vital Signs [RC] Q4H PT Evaluation and Treatment [CONS] Routine Acetaminophen [TylenoL] 650 mg PO Q4H PRN Ondansetron [Zofran] 4 mg IVPUSH Q4H PRN bisacodyL [Dulcolax] 5 mg PO DAILY PRN Seizure Precautions [OM.PC] Routine Resuscitation Status Routine 03/29/20 17:03 Antiembolic Devices [RC] PER UNIT ROUTINE Sequential Compression Device [OM.PC] Per Unit Routine 03/29/20 17:04 Sodium Chloride 0.9% [Saline Flush] 2.5 ml FLUSH ASDIRECTED PRN Saline Lock Insert [OM.PC] Routine 03/29/20 17:45 Thiamine [Vitamin B-1] 500 mg Sodium Chloride 0.9% [Normal Saline] 250 ml IV Q8H 03/29/20 21:00 Docusate Sodium [Colace] 100 mg PO BID 03/30/20 08:15 Potassium Chloride [Klor-Con M20] 40 meq PO BID@0815,1130 03/30/20 09:00 Folic Acid 1 mg SUBCUT DAILY Furosemide [Lasix] 40 mg PO DAILY lisinopriL [Prinivil] 40 mg PO DAILY 03/30/20 17:05 Echo Comp wo Cont [US] Routine - Plan Plan:: This 64-year-old male admitted with hypertensive urgency Wernicke's, alcohol withdrawal 1. Hypertensive urgency - Blood pressure has improved, was given labetalol x1 last evening -Continue lisinopril. - Labetolol PRN SBP >190 - Obtain ECHO - Monitor on telemetry, no arrhythmias noted overnight. -Monitor withdrawal symptoms as this may be increasing blood pressure as well. 2. Wernicke's encephalopathy/dizziness -Treat with high-dose thiamine replacement, 500 mg IV 3 times daily for 2 days then 250 mg IV daily after that for 5 days. -Consult PT -With continued dizziness and mild blurred vision will order MRI of brain to evaluate for CVA. 3. Alcohol withdrawal -CIWA scores have been 34 last dose of Ativan noted to be last evening -Continue CIWAA assessment with Ativan protocol -Supplement thiamine and folic acid -Seizure precautions -Discussed options for outpatient support with alcohol abuse. Request information regarding outpatient support will provide [facility] human services resource as well as celebrate recovery. 4. COPD -No COPD exacerbation noted -DuoNebs as needed 5. HFrEF: -Stable - Obtain ECHO - Restart Lasix 40 mg po daily - Strict I/O, daily weight, [place] diet - Discussed with him the need for compliance with medications to decrease mortality risk with heart failure of his extent. We also discussed needing to see a shoe repairer helper and following through with evaluations. He verbalized understanding. We also discussed his drinking and noncompliance can worsen his heart failure. VTE prophylaxis: SCDs CODE STATUS: Full code Dispo 2 to 3 days
[2020-03-30] MEDS: Furosemide 40 MG Tab PO SCH (08:43)
[2020-03-30] MEDS: Lisinopril 10 MG Tab PO SCH (08:43)
[2020-03-30] MEDS: Potassium Chloride 20 MEQ Tab.ER PO SCH ×2 (08:43→12:10)
[2020-03-30] MEDS: Docusate Sodium 100 MG Cap PO SCH ×2 (08:43→22:30)
[2020-03-30] MEDS: Folic Acid 50 MG/10 ML MDV SUBCUT SCH (08:44)
[2020-03-30] MEDS ORDERED: Gadobenate Dimeglumine 529 MG/ML 20 ML SDV IVPUSH STA (10:22)
--- NOTE | 2020-03-30 11:39 | MR ---
Indication: Dizziness. Rule out CVA. Technique: Noncontrast sagittal T1, axial FLAIR, T2 turbo spine echo, and diffusion weighted images. Supplemental post contrast T1 weighted axial and coronal sequences are provided after administration of 20 mL gadolinium-based IV contrast. Comparison: CT and CTA 03/29/2020 Findings: The ventricles, sulci and gyri are normal size, shape and contour for age. The midline structures are centrally located with no evidence of shift. There are no suspicious intra or extra-axial fluid collections. No evidence of restricted diffusion to suggest acute ischemia. A few small discrete foci of T2 prolongation are present in the periventricular and subcortical white matter, nonspecific but most commonly noted in the setting of chronic small vessel ischemic changes. Expected flow voids in the cavernous carotids and basilar artery. No abnormal contrast enhancement involving the brain parenchyma, meninges, calvarium or skull base. Mild to moderate left maxillary sinus mucosal thickening. Impression: 1. No evidence of acute intracranial abnormality. 2. A few small discrete foci of T2 prolongation are present in the periventricular and subcortical white matter, nonspecific but most commonly noted in the setting of chronic small vessel ischemic changes. 3. Mild to moderate left maxillary sinus disease. Dictated by Andre Wilcox MD @ Mar 30 2020 11:27AM Signed by Dr. Andre Wilcox @ Mar 30 2020 11:36AM
[2020-03-30] MEDS: Fluticasone Propionate Nasal Spray 16 GM Bottle NASBOTH SCH (12:27)
[2020-03-30] MEDS: LORazepam 2 MG/ML SDV IVPUSH PRN ×2 (12:50→16:49)
[2020-03-30] MEDS: Labetalol 100 MG/20 ML MDV IVPUSH PRN (22:41)
[2020-03-31] MEDS: Thiamine 500 MG in Sodium Chloride 0.9% 250 ML IV SCH ×2 (00:49→10:19)
[2020-03-31] MEDS: Acetaminophen 325 MG Tab PO PRN ×3 (04:55→16:49)
[2020-03-31 05:43] LABS: BLOOD UREA NITROGEN,BUN 9 mg/dL (7.0-18.0); CARBON DIOXIDE,CO2 29.7 mmol/L (21.0-32.0); CHLORIDE,CL 106 mmol/L (98-107); GLUCOSE RANDOM 99 mg/dL (74-106); POTASSIUM,K 3.6 mmol/L (3.5-5.1); SODIUM,NA 141 mmol/L (136-148)
[2020-03-31] MEDS: Potassium Chloride 20 MEQ Tab.ER PO SCH ×2 (09:05→12:27)
[2020-03-31] MEDS: Furosemide 40 MG Tab PO SCH (09:05)
[2020-03-31] MEDS: Lisinopril 10 MG Tab PO SCH (09:05)
[2020-03-31] MEDS: Docusate Sodium 100 MG Cap PO SCH ×2 (09:05→22:56)
[2020-03-31] MEDS: Folic Acid 50 MG/10 ML MDV SUBCUT SCH (09:06)
[2020-03-31] MEDS: Fluticasone Propionate Nasal Spray 16 GM Bottle NASBOTH SCH (09:06)
[2020-03-31] MEDS: LORazepam 2 MG/ML SDV IVPUSH PRN (09:26)
--- NOTE | 2020-03-31 11:18 | PCM.PN ---
- General Info Date of Service: 03/31/20 Admission Dx/Problem (Free Text): Admission Diagnosis/Problem Admission Diagnosis/Problem Alcohol withdrawal syndrome Subjective Update: Reports feeling dizzy today especially when moving around. He feels like the room around him is moving and jittery. Reports feeling very anxious and that his thoughts are swarming. No chest pain no shortness of breath no abdominal pain. He is up and tolerating diet well. Functional Status: Reports: Pain Controlled, Tolerating Diet - Review of Systems General: Reports: Weakness (Generalized) HEENT: Reports: No Symptoms. Denies: Headaches, Visual Changes Pulmonary: Reports: No Symptoms, Cough. Denies: Shortness of Breath Cardiovascular: Reports: No Symptoms. Denies: Chest Pain Gastrointestinal: Reports: No Symptoms. Denies: Abdominal Pain, Nausea, Vomiting Genitourinary: Reports: No Symptoms, Dysuria, Frequency, Burning Musculoskeletal: Reports: No Symptoms Skin: Reports: No Symptoms Neurological: Reports: Dizziness Psychiatric: Reports: No Symptoms, Confusion - Patient Data Vitals - Most Recent: Last Vital Signs Temp 98.7 F 03/31/20 08:13 Pulse 74 03/31/20 08:13 Resp 18 03/31/20 08:13 BP 182/81 H 03/31/20 09:05 Pulse Ox 96 03/31/20 08:13 Weight - Most Recent: 112.8 kg I&O - Last 24 Hours: Intake & Output 03/30/20 03/31/20 03/31/20 22:59 06:59 14:59 Intake Total 2000 Output Total 2200 Balance -200 Lab Results Last 24 Hours: Laboratory Results - last 24 hr 03/31/20 03/31/20 Range/Units 05:05 05:05 WBC 7.35 (4.0-11.0) K/uL RBC 4.89 (4.50-5.90) M/uL Hgb 15.6 (13.0-17.0) g/dL Hct 45.0 (38.0-50.0) % MCV 92.0 (80.0-98.0) fL MCH 31.9 (27.0-32.0) pg MCHC 34.7 (31.0-37.0) g/dL RDW Std Deviation 44.2 (28.0-62.0) fl RDW Coeff of Julian 13 (11.0-15.0) % Plt Count 181 (150-400) K/uL MPV 9.00 (7.40-12.00) fL Neut % (Auto) 63.6 (48.0-80.0) % Lymph % (Auto) 26.8 (16.0-40.0) % [place] % (Auto) 7.5 (0.0-15.0) % Eos % (Auto) 2.0 (0.0-7.0) % Baso % (Auto) 0.1 (0.0-1.5) % Neut # (Auto) 4.7 (1.4-5.7) K/uL Lymph # (Auto) 2.0 (0.6-2.4) K/uL [place] # (Auto) 0.6 (0.0-0.8) K/uL Eos # (Auto) 0.2 (0.0-0.7) K/uL Baso # (Auto) 0.0 (0.0-0.1) K/uL Nucleated RBC % 0.0 /100WBC Nucleated RBCs # 0 K/uL Sodium 141 (136-148) mmol/L Potassium 3.6 (3.5-5.1) mmol/L Chloride 106 (98-107) mmol/L Carbon Dioxide 29.7 (21.0-32.0) mmol/L BUN 9 (7.0-18.0) mg/dL Creatinine 1.0 (0.8-1.3) mg/dL Est Cr Clr Drug Dosing 80.53 mL/min Estimated GFR (MDRD) > 60.0 ml/min Glucose 99 (74-106) mg/dL Calcium 8.4 L (8.5-10.1) mg/dL Magnesium 1.9 (1.8-2.4) mg/dL Total Bilirubin 0.8 (0.2-1.0) mg/dL AST 26 (15-37) IU/L ALT 26 (14-63) IU/L Alkaline Phosphatase 111 (46-116) U/L Total Protein 7.0 (6.4-8.2) g/dL Albumin 3.3 L (3.4-5.0) g/dL Globulin 3.7 (2.6-4.0) g/dL Albumin/Globulin Ratio 0.9 (0.9-1.6) Med Orders - Current: Current Medications Acetaminophen (Tylenol) 650 mg PO Q4H PRN PRN Reason: Pain (Mild 1-3)/fever Last Admin: 03/31/20 09:26 Dose: 650 mg Documented by: Albuterol/Ipratropium (Duoneb 3.0-0.5 Mg/3 Ml) 3 ml NEB Q4HRRT PRN PRN Reason: dyspnea/wheezing Bisacodyl (Dulcolax) 5 mg PO DAILY PRN PRN Reason: Constipation Docusate Sodium (Colace) 100 mg PO BID [facility] Last Admin: 03/31/20 09:05 Dose: 100 mg Documented by: Fluticasone Propionate (Flonase) 0 gm NASBOTH DAILY [facility] Last Admin: 03/31/20 09:06 Dose: 1 spray Documented by: Folic Acid (Folic Acid) 1 mg SUBCUT DAILY [facility] Last Admin: 03/31/20 09:06 Dose: 1 mg Documented by: Furosemide (Lasix) 40 mg PO DAILY [facility] Last Admin: 03/31/20 09:05 Dose: 40 mg Documented by: Thiamine HCl 500 mg/ Sodium (Chloride) 255 mls @ 510 mls/hr IV Q8H [facility] Last Admin: 03/31/20 10:19 Dose: 510 mls/hr Documented by: Labetalol HCl (Normodyne) 20 mg IVPUSH Q4H PRN PRN Reason: SBP>190 Last Admin: 03/30/20 22:41 Dose: 20 mg Documented by: Lisinopril (Prinivil) 40 mg PO DAILY [facility] Last Admin: 03/31/20 09:05 Dose: 40 mg Documented by: Lorazepam (Ativan) 0 mg IVPUSH Q2H PRN; Protocol PRN Reason: CIWAA Last Admin: 03/31/20 09:26 Dose: 1 mg Documented by: Ondansetron HCl (Zofran) 4 mg IVPUSH Q4H PRN PRN Reason: Nausea Last Admin: 03/31/20 09:26 Dose: 4 mg Documented by: Potassium Chloride (Klor-Con M20) 40 meq PO BID@0815,1130 [facility] Last Admin: 03/31/20 09:05 Dose: 40 meq Documented by: Sodium Chloride (Saline Flush) 2.5 ml FLUSH ASDIRECTED PRN PRN Reason: Keep Vein Open Last Admin: 03/31/20 09:17 Dose: 2.5 ml Documented by: Discontinued Medications Aspirin (Aspirin) 324 mg PO ONETIME ONE Stop: 03/29/20 13:50 Last Admin: 03/29/20 14:27 Dose: 324 mg Documented by: Gadobenate Dimeglumine (Multihance) 20 ml IVPUSH ONETIME STA Stop: 03/30/20 10:23 Last Admin: 03/30/20 10:23 Dose: 20 ml Documented by: Multivitamins/Minerals 10 ml/Thiamine HCl 100 mg/ Folic Acid 1 mg/ Sodium Chloride 1,011.2 mls @ 999 mls/hr IV ONETIME ONE Stop: 03/29/20 12:39 Last Admin: 03/29/20 12:14 Dose: 999 mls/hr Documented by: Magnesium Sulfate (Magnesium Sulfate In Water Premix) 2 gm in 50 mls @ 50 mls/hr IV ONETIME ONE Stop: 03/29/20 18:44 Last Admin: 03/29/20 19:22 Dose: 50 mls/hr Documented by: Iopamidol (Isovue Multipack-370 (76%)) 100 ml IVPUSH ONETIME STA Stop: 03/29/20 15:12 Last Admin: 03/29/20 15:23 Dose: 100 ml Documented by: Labetalol HCl (Normodyne) 10 mg IVPUSH ONETIME ONE; Protocol Stop: 03/29/20 11:48 Last Admin: 03/29/20 12:15 Dose: 2 ml Documented by: Labetalol HCl (Normodyne) 10 mg IVPUSH ONETIME ONE; Protocol Stop: 03/29/20 13:50 Last Admin: 03/29/20 14:26 Dose: 2 ml Documented by: Labetalol HCl (Normodyne) 20 mg IVPUSH ONETIME ONE; Protocol Stop: 03/29/20 16:13 Last Admin: 03/29/20 16:26 Dose: 2 ml Documented by: Lisinopril (Prinivil) 40 mg PO ONETIME ONE Stop: 03/29/20 16:07 Last Admin: 03/29/20 16:25 Dose: 40 mg Documented by: Meclizine HCl (Antivert) 25 mg PO ONETIME ONE Stop: 03/29/20 13:51 Last Admin: 03/29/20 14:26 Dose: 25 mg Documented by: Potassium Chloride (Klor-Con M20) 40 meq PO ONETIME ONE Stop: 03/29/20 17:46 Last Admin: 03/29/20 18:19 Dose: 40 meq Documented by: Sodium Chloride (Saline Flush) 2.5 ml FLUSH ASDIRECTED PRN PRN Reason: Keep Vein Open Last Admin: 03/29/20 12:16 Dose: 2.5 ml Documented by: Sodium Chloride (Saline Flush) 10 ml FLUSH ASDIRECTED PRN PRN Reason: Keep Vein Open Last Admin: 03/29/20 12:16 Dose: 10 ml Documented by: Sodium Phosphate (Neutra-Phos) 250 mg PO ONETIME ONE Stop: 03/29/20 17:46 Last Admin: 03/29/20 18:19 Dose: 250 mg Documented by: - Exam General: Alert, Oriented, Cooperative, No Acute Distress Lungs: Normal Respiratory Effort, Wheezing Cardiovascular: Regular Rate, Regular Rhythm GI/Abdominal Exam: Normal Bowel Sounds, Soft, Non-Tender (No card during the chest, but global) Extremities: Normal Inspection, Normal Range of Motion, Non-Tender, No Pedal Edema Neurological: No New Focal Deficit Psy/Mental Status: Alert, Normal Affect, Normal Mood Sepsis Event Note - Evaluation Sepsis Screening Result: No Definite Risk - Focused Exam Vital Signs: Vital Signs Temp Pulse Resp BP BP Pulse Ox 03/31/20 09:05 182/81 H 03/31/20 08:13 98.7 F 74 18 182/81 H 96 03/31/20 04:00 97.9 F 77 16 156/82 H 95 03/31/20 00:46 75 18 175/89 H 95 - Problem List & Annotations (1) Hypertensive urgency SNOMED Code(s): 316126952 Code(s): I16.0 - HYPERTENSIVE URGENCY Status: Acute Current Visit: Yes (2) Wernickes encephalopathy SNOMED Code(s): 81595683 Code(s): E51.2 - WERNICKE'S ENCEPHALOPATHY Status: Acute Current Visit: Yes (3) Falls SNOMED Code(s): 1043053, 539626413 Code(s): W19.XXXA - UNSPECIFIED FALL, INITIAL ENCOUNTER Status: Acute Current Visit: Yes Qualifiers: Encounter type: initial encounter Qualified Code(s): W19.XXXA - Unspecified fall, initial encounter (4) Alcohol withdrawal SNOMED Code(s): 319286355 Code(s): F10.239 - ALCOHOL DEPENDENCE WITH WITHDRAWAL, UNSPECIFIED Status: Acute Current Visit: Yes (5) Hypokalemia SNOMED Code(s): 81652038 Code(s): E87.6 - HYPOKALEMIA Status: Acute Current Visit: Yes (6) Alcohol abuse SNOMED Code(s): 71844594 Code(s): F10.10 - ALCOHOL ABUSE, UNCOMPLICATED Status: Chronic Current Visit: Yes (7) Bipolar 1 disorder SNOMED Code(s): 301521443 Code(s): F31.9 - BIPOLAR DISORDER, UNSPECIFIED Status: Chronic Current Visit: Yes (8) COPD (chronic obstructive pulmonary disease) SNOMED Code(s): 23961079 Code(s): J44.9 - CHRONIC OBSTRUCTIVE PULMONARY DISEASE, UNSPECIFIED Status: Chronic Current Visit: Yes (9) Tobacco use SNOMED Code(s): 439082946 Code(s): Z72.0 - TOBACCO USE Status: Chronic Current Visit: Yes (10) Hypertension SNOMED Code(s): 97486293 Code(s): I10 - ESSENTIAL (PRIMARY) HYPERTENSION Status: Chronic Current Visit: Yes Qualifiers: Hypertension type: unspecified Qualified Code(s): I10 - Essential (primary) hypertension (11) Noncompliance with medication regimen SNOMED Code(s): 918639669 Code(s): Z91.14 - PATIENT'S OTHER NONCOMPLIANCE WITH MEDICATION REGIMEN Status: Chronic Current Visit: Yes - Problem List Review Problem List Initiated/Reviewed/Updated: Yes - My Orders Last 24 Hours: My Active Orders 03/30/20 12:15 Fluticasone Propionate [Flonase] See Dose Instructions NASBOTH DAILY 03/30/20 17:05 Echo Comp wo Cont [US] Routine 04/01/20 05:11 CBC WITH AUTO DIFF [HEME] AM COMPREHENSIVE METABOLIC PN,CMP [CHEM] AM MAGNESIUM [CHEM] AM 04/02/20 05:11 CBC WITH AUTO DIFF [HEME] AM COMPREHENSIVE METABOLIC PN,CMP [CHEM] AM MAGNESIUM [CHEM] AM - Plan Plan:: This 64-year-old male admitted with hypertensive urgency Wernicke's, alcohol withdrawal 1. Hypertension - Hypertensive urgency has resolved - Blood pressure has improved, was given labetalol x1 last evening - Continue lisinopril. - Labetolol PRN SBP >190 - ECHO pending - Monitor on telemetry, no arrhythmias noted overnight. -Monitor withdrawal symptoms as this may be increasing blood pressure as well. 2. Wernicke's encephalopathy/dizziness - Completed thiamine 500 mg 3 times daily x2 days - Start thiamine 250 mg IV daily x5 days - Consult PT - MRI negative, does show sinus disease. Flonase started 3. Alcohol withdrawal - CIWA scores have been 34 last dose of Ativan noted to be last evening - Continue CIWAA assessment with Ativan protocol - Supplement thiamine and folic acid - Seizure precautions - Discussed options for outpatient support with alcohol abuse. Request information regarding outpatient support will provide [facility] human services resource as well as celebrate recovery. 4. COPD -No COPD exacerbation noted -DuoNebs as needed 5. HFrEF: - Stable - ECHO echo reveals no significant change from November 2018. EF 35 to 40% with normal left ventricular systolic function. Impaired grade 1 relaxation of LV di astolic filling mild to moderate LVH otherwise. Normal right ventricular systolic pressure. - Lasix 40 mg po daily - Strict I/O, daily weight, [place] diet - Discussed with him the need for compliance with medications to decrease mortality risk with heart failure of his extent. We also discussed needing to see a international affairs vice president and following through with evaluations. He verbalized understanding. We also discussed his drinking and noncompliance can worsen his heart failure. VTE prophylaxis: SCDs CODE STATUS: Full code Dispo 2 to 3 days
[2020-03-31] MEDS ORDERED: Meclizine 25 MG Tab PO PRN (15:57)
[2020-03-31] MEDS: Labetalol 100 MG/20 ML MDV IVPUSH PRN (20:05)
[2020-04-01 06:36] LABS: BLOOD UREA NITROGEN,BUN 12 mg/dL (7.0-18.0); CARBON DIOXIDE,CO2 29.8 mmol/L (21.0-32.0); CHLORIDE,CL 103 mmol/L (98-107); GLUCOSE RANDOM 94 mg/dL (74-106); SODIUM,NA 138 mmol/L (136-148)
[2020-04-01] MEDS ORDERED: Thiamine 250 MG in Sodium Chloride 0.9% 100 ML IV SCH (09:00)
[2020-04-01] MEDS: Potassium Chloride 20 MEQ Tab.ER PO SCH ×2 (09:27→12:00)
[2020-04-01] MEDS: Lisinopril 10 MG Tab PO SCH (09:32)
[2020-04-01] MEDS: Furosemide 40 MG Tab PO SCH (09:32)
[2020-04-01] MEDS: Acetaminophen 325 MG Tab PO PRN (09:33)
[2020-04-01] MEDS: Docusate Sodium 100 MG Cap PO SCH (09:33)
[2020-04-01] MEDS: Folic Acid 50 MG/10 ML MDV SUBCUT SCH (09:33)
[2020-04-01] MEDS: Fluticasone Propionate Nasal Spray 16 GM Bottle NASBOTH SCH (09:34)
--- NOTE | 2020-04-01 12:15 | PCM.DCSUM1 ---
Discharge Summary - Discharge Data Discharge Date: 04/01/20 Discharge Disposition: Home, Self-Care 01 Condition: Good - Referral to Home Health Primary Care Physician: PCP None - Patient Summary/Data Consults: Consultations 03/29/20 17:02 PT Evaluation and Treatment [CONS] Routine Hospital Course: This 64-year-old male with PMH of hypertension chronic alcohol abuse, HFrEF, COPD who was admitted for ETOH withdrawal and suspect Wernicke's encephalopathy. He presented to the ER with complaints of dizziness and difficulty walking along with a fall that occurred approximately 2 days before admission. In the ER no leukocytosis was noted hemoglobin 17.0 Sodium 135 potassium 3.3 chloride is 97 bilirubin is 1.1 alk phos is 137. UA negative U tox positive for THC EtOH 26. Chest x-ray which showed hyperinflation and chronic interstitial changes but no acute cardiopulmonary process. Head CT without contrast was negative CTA of the head and neck revealed no significant stenosis or aneurysm. Blood pressures in the ER noted to be elevated 200s to 240s/110s to 120s, heart rate 92 EKG none sinus rhythm with no ST segment elevation or T wave changes. Echo November 2018 revealed EF 30% with moderately decreased left ventricular systolic function left ventricle internal cavity size is dilated with systole, mild aortic valve sclerosis without stenosis trace mitral valve regurg as well as mild tricuspid valve regurgitation. He was admitted and treated with IV ativan per [facility] protocol. He was started on lisinopril and labetolol prn for blood pressure control. His lasix was restarted. He was treated with IV thiamin 500mg TID fro three days. He did have improvement in his disequilibrium and today he is requesting discharge home. He was discharged home with lasix and lisinopril. It was also arranged to have thiamine IM for four more days. He is to follow up with [facility] and Cardiology clinic. - Patient Instructions Diet: Heart Healthy Diet - Discharge Plan Prescriptions/Med Rec: Potassium Chloride [Klor-Con M20] 20 meq PO DAILY #30 tab.er Furosemide [Lasix] 40 mg PO DAILY #30 tablet lisinopriL [Prinivil] 40 mg PO DAILY #30 tablet Thiamine [Vitamin B-1] 200 mg IM DAILY #4 mdv Home Medications: Home Meds Furosemide [Lasix] 40 mg PO DAILY #30 tablet 04/01/20 [Rx] Potassium Chloride [Klor-Con M20] 20 meq PO DAILY #30 tab.er 04/01/20 [Rx] Thiamine [Vitamin B-1] 200 mg IM DAILY #4 mdv 04/01/20 [Rx] lisinopriL [Prinivil] 40 mg PO DAILY #30 tablet 04/01/20 [Rx] Patient Handouts: Alcohol Use Disorder, Furosemide tablets, Potassium chloride tablets, extended-release tablets or capsules, Lisinopril tablets, Dizziness, [id number] Referrals: Jas Arriola MD [Resident] - 04/10/20 1:00 pm - Discharge Summary/Plan Comment DC Time >30 min.: No - Patient Data Vitals - Most Recent: Last Vital Signs Temp 36.9 C 04/01/20 09:29 Pulse 83 04/01/20 09:29 Resp 18 04/01/20 09:29 BP 177/99 H 04/01/20 09:32 Pulse Ox 95 04/01/20 09:29 Weight - Most Recent: 112.672 kg I&O - Last 24 hours: Intake & Output 03/31/20 04/01/20 04/01/20 22:59 06:59 14:59 Intake Total 1520 1250 Output Total 1100 600 Balance 420 650 Lab Results - Last 24 hrs: Laboratory Results - last 24 hr 04/01/20 04/01/20 Range/Units 05:58 05:58 WBC 8.66 (4.0-11.0) K/uL RBC 4.82 (4.50-5.90) M/uL Hgb 15.4 (13.0-17.0) g/dL Hct 44.7 (38.0-50.0) % MCV 92.7 (80.0-98.0) fL MCH 32.0 (27.0-32.0) pg MCHC 34.5 (31.0-37.0) g/dL RDW Std Deviation 44.9 (28.0-62.0) fl RDW Coeff of [place] 13 (11.0-15.0) % Plt Count 183 (150-400) K/uL MPV 9.10 (7.40-12.00) fL Neut % (Auto) 58.3 (48.0-80.0) % Lymph % (Auto) 29.9 (16.0-40.0) % [place] % (Auto) 8.4 (0.0-15.0) % Eos % (Auto) 3.2 (0.0-7.0) % Baso % (Auto) 0.2 (0.0-1.5) % Neut # (Auto) 5.0 (1.4-5.7) K/uL Lymph # (Auto) 2.6 H (0.6-2.4) K/uL [place] # (Auto) 0.7 (0.0-0.8) K/uL Eos # (Auto) 0.3 (0.0-0.7) K/uL Baso # (Auto) 0.0 (0.0-0.1) K/uL Nucleated RBC % 0.0 /100WBC Nucleated RBCs # 0 K/uL Sodium 138 (136-148) mmol/L Potassium 5.0 (3.5-5.1) mmol/L Chloride 103 (98-107) mmol/L Carbon Dioxide 29.8 (21.0-32.0) mmol/L BUN 12 (7.0-18.0) mg/dL Creatinine 1.1 (0.8-1.3) mg/dL Est Cr Clr Drug Dosing 73.21 mL/min Estimated GFR (MDRD) > 60.0 ml/min Glucose 94 (74-106) mg/dL Calcium 8.9 (8.5-10.1) mg/dL Magnesium 1.8 (1.8-2.4) mg/dL Total Bilirubin 0.5 (0.2-1.0) mg/dL AST 30 (15-37) IU/L ALT 37 (14-63) IU/L Alkaline Phosphatase 113 (46-116) U/L Total Protein 7.3 (6.4-8.2) g/dL Albumin 3.4 (3.4-5.0) g/dL Globulin 3.9 (2.6-4.0) g/dL Albumin/Globulin Ratio 0.9 (0.9-1.6) Med Orders - Current: Current Medications Acetaminophen (Tylenol) 650 mg PO Q4H PRN PRN Reason: Pain (Mild 1-3)/fever Last Admin: 04/01/20 09:33 Dose: 650 mg Documented by: Albuterol/Ipratropium (Duoneb 3.0-0.5 Mg/3 Ml) 3 ml NEB Q4HRRT PRN PRN Reason: dyspnea/wheezing Bisacodyl (Dulcolax) 5 mg PO DAILY PRN PRN Reason: Constipation Docusate Sodium (Colace) 100 mg PO BID [facility] Last Admin: 04/01/20 09:33 Dose: 100 mg Documented by: Fluticasone Propionate (Flonase) 0 gm NASBOTH DAILY [facility] Last Admin: 04/01/20 09:34 Dose: 1 spray Documented by: Folic Acid (Folic Acid) 1 mg SUBCUT DAILY [facility] Last Admin: 04/01/20 09:33 Dose: 1 mg Documented by: Furosemide (Lasix) 40 mg PO DAILY [facility] Last Admin: 04/01/20 09:32 Dose: 40 mg Documented by: Thiamine HCl 250 mg/ Sodium (Chloride) 102.5 mls @ 205 mls/hr IV DAILY [facility] Stop: 04/05/20 09:01 Last Admin: 04/01/20 09:49 Dose: 205 mls/hr Documented by: Labetalol HCl (Normodyne) 20 mg IVPUSH Q4H PRN PRN Reason: SBP>190 Last Admin: 03/31/20 20:05 Dose: 20 mg Documented by: Lisinopril (Prinivil) 40 mg PO DAILY [facility] Last Admin: 04/01/20 09:32 Dose: 40 mg Documented by: Lorazepam (Ativan) 0 mg IVPUSH Q2H PRN; Protocol PRN Reason: CIWAA Last Admin: 03/31/20 09:26 Dose: 1 mg Documented by: Meclizine HCl (Antivert) 25 mg PO TID PRN PRN Reason: Dizziness Last Admin: 03/31/20 16:50 Dose: 25 mg Documented by: Ondansetron HCl (Zofran) 4 mg IVPUSH Q4H PRN PRN Reason: Nausea Last Admin: 03/31/20 09:26 Dose: 4 mg Documented by: Potassium Chloride (Klor-Con M20) 40 meq PO BID@0815,1130 [facility] Last Admin: 04/01/20 12:00 Dose: 40 meq Documented by: Sodium Chloride (Saline Flush) 2.5 ml FLUSH ASDIRECTED PRN PRN Reason: Keep Vein Open Last Admin: 03/31/20 09:17 Dose: 2.5 ml Documented by: Discontinued Medications Aspirin (Aspirin) 324 mg PO ONETIME ONE Stop: 03/29/20 13:50 Last Admin: 03/29/20 14:27 Dose: 324 mg Documented by: Gadobenate Dimeglumine (Multihance) 20 ml IVPUSH ONETIME STA Stop: 03/30/20 10:23 Last Admin: 03/30/20 10:23 Dose: 20 ml Documented by: Multivitamins/Minerals 10 ml/Thiamine HCl 100 mg/ Folic Acid 1 mg/ Sodium Chloride 1,011.2 mls @ 999 mls/hr IV ONETIME ONE Stop: 03/29/20 12:39 Last Admin: 03/29/20 12:14 Dose: 999 mls/hr Documented by: Thiamine HCl 500 mg/ Sodium (Chloride) 255 mls @ 510 mls/hr IV Q8H [facility] Last Admin: 03/31/20 10:19 Dose: 510 mls/hr Documented by: Magnesium Sulfate (Magnesium Sulfate In Water Premix) 2 gm in 50 mls @ 50 mls/hr IV ONETIME ONE Stop: 03/29/20 18:44 Last Admin: 03/29/20 19:22 Dose: 50 mls/hr Documented by: Iopamidol (Isovue Multipack-370 (76%)) 100 ml IVPUSH ONETIME STA Stop: 03/29/20 15:12 Last Admin: 03/29/20 15:23 Dose: 100 ml Documented by: Labetalol HCl (Normodyne) 10 mg IVPUSH ONETIME ONE; Protocol Stop: 03/29/20 11:48 Last Admin: 03/29/20 12:15 Dose: 2 ml Documented by: Labetalol HCl (Normodyne) 10 mg IVPUSH ONETIME ONE; Protocol Stop: 03/29/20 13:50 Last Admin: 03/29/20 14:26 Dose: 2 ml Documented by: Labetalol HCl (Normodyne) 20 mg IVPUSH ONETIME ONE; Protocol Stop: 03/29/20 16:13 Last Admin: 03/29/20 16:26 Dose: 2 ml Documented by: Lisinopril (Prinivil) 40 mg PO ONETIME ONE Stop: 03/29/20 16:07 Last Admin: 03/29/20 16:25 Dose: 40 mg Documented by: Meclizine HCl (Antivert) 25 mg PO ONETIME ONE Stop: 03/29/20 13:51 Last Admin: 03/29/20 14:26 Dose: 25 mg Documented by: Potassium Chloride (Klor-Con M20) 40 meq PO ONETIME ONE Stop: 03/29/20 17:46 Last Admin: 03/29/20 18:19 Dose: 40 meq Documented by: Sodium Chloride (Saline Flush) 2.5 ml FLUSH ASDIRECTED PRN PRN Reason: Keep Vein Open Last Admin: 03/29/20 12:16 Dose: 2.5 ml Documented by: Sodium Chloride (Saline Flush) 10 ml FLUSH ASDIRECTED PRN PRN Reason: Keep Vein Open Last Admin: 03/29/20 12:16 Dose: 10 ml Documented by: Sodium Phosphate (Neutra-Phos) 250 mg PO ONETIME ONE Stop: 03/29/20 17:46 Last Admin: 03/29/20 18:19 Dose: 250 mg Documented by:
[2020-04-01 12:55] VITALS: BP 184/101; PULSE 79
--- NOTE | 2020-04-03 09:53 | ECHO ---
EXAM DATE: 03/29/20 PATIENT'S AGE: 64 The ECHO report has been scanned into [employer] and can be seen in this patient's EMR (Electronic Medical Record) under the REPORTS section. The report has also been scanned into PACS. ISA
== END 2020-04-01 13:00 | disposition home or self-care (01) | DRG 897 ==
LOC: MW.ED 10:54 → MW.MS 14:41 → OBSVTOIN 16:17
PROVIDERS: ADMIT Student in an Organized Health Care Education/Training Program; ATTEND Student in an Organized Health Care Education/Training Program
DX: F10.239 Alcohol dependence with withdrawal, unspecified (principal); E51.2 Wernicke's encephalopathy; I50.22 Chronic systolic (congestive) heart failure; I16.0 Hypertensive urgency; J44.9 Chronic obstructive pulmonary disease, unspecified; I11.0 Hypertensive heart disease with heart failure; E78.00 Pure hypercholesterolemia, unspecified; G89.29 Other chronic pain; M54.9 Dorsalgia, unspecified; F31.9 Bipolar disorder, unspecified; E66.9 Obesity, unspecified; F17.210 Nicotine dependence, cigarettes, uncomplicated; W19.XXXA Unspecified fall, initial encounter; Z79.899 Other long term (current) drug therapy; Z91.040 Latex allergy status; Z91.048 Other nonmedicinal substance allergy status; I25.2 Old myocardial infarction; Z91.14 Patient's other noncompliance with medication regimen; E87.6 Hypokalemia; Z20.828 Contact with and (suspected) exposure to other viral communicable diseases
CPT/HCPCS: 36415; 70450; 70450-26; 70496; 70496-26; 70498; 70498-26; 70553; 70553-26; 71045; 71045-26; 80053; 80305-QW; 80307; 81001; 82140; 83690; 83735; 83880; 84100; 84484; 85025; 85610; 93005; 93010; 93306; 96365; 96375; 96376; 97161-GP; 99223; 99232; 99233; 99238; 99284; 99285-25; A9270-GY; A9577; J2060; J2405; J3411; J3475; J3490; J7030; J7050; Q9967; U0002

== ENCOUNTER 2021-10-05 10:26 | Inpatient (IN) | payer MEDICAID ==
[2021-10-05] MEDS ORDERED: Albuterol/Ipratropium 3.0-0.5 MG/3 ML Neb Soln NEB ONE (10:42)
[2021-10-05] MEDS ORDERED: Nitroglycerin 0.4 MG Tab.SL SL ONE (10:42)
[2021-10-05] MEDS ORDERED: Aspirin 81 MG Tab.Chew PO ONE (10:47)
[2021-10-05 11:34] LABS: BLOOD UREA NITROGEN,BUN 8 mg/dL (7.0-18.0); CARBON DIOXIDE,CO2 27.8 mmol/L (21.0-32.0); CHLORIDE,CL 101 mmol/L (98-107); GLUCOSE RANDOM 103 mg/dL (74-106); POTASSIUM,K 3.4 mmol/L (3.5-5.1); SODIUM,NA 139 mmol/L (136-148)
[2021-10-05] MEDS ORDERED: Potassium Chloride 10% 20 MEQ/15 ML Soln 30 ML UD Cup PO ONE (11:51)
[2021-10-05] MEDS ORDERED: Albuterol/Ipratropium 3.0-0.5 MG/3 ML Neb Soln NEB STA (12:03)
[2021-10-05] MEDS ORDERED: Magnesium Oxide 400 MG Tab PO ONE (12:03)
[2021-10-05] MEDS ORDERED: predniSONE 20 MG Tab PO ONE (12:03)
[2021-10-05] MEDS ORDERED: Furosemide 40 MG/4 ML VIAL IVPUSH STA (12:59)
[2021-10-05] MEDS ORDERED: Azithromycin 250 MG Tab PO STA (12:59)
[2021-10-05] MEDS ORDERED: Acetaminophen 325 MG Tab PO PRN (15:23)
[2021-10-05] MEDS ORDERED: Docusate Sodium 100 MG Cap PO PRN (15:23)
[2021-10-05] MEDS ORDERED: Ondansetron 4 MG Tab.DIS PO PRN (15:23)
[2021-10-05] MEDS ORDERED: Non-Formulary Medication 1 Each (Budesonide/Formoterol Fumarate [Symbicort 80-4.5 Mcg Inha INH SCH (15:45)
[2021-10-05] MEDS: Labetalol 100 MG/20 ML MDV IVPUSH PRN ×2 (17:13→17:45)
[2021-10-05] MEDS ORDERED: Lisinopril 10 MG Tab PO ONE (18:26)
[2021-10-05] MEDS ORDERED: Furosemide 40 MG in Sodium Chloride 0.9% 50 ML IV SCH (21:00)
[2021-10-05] MEDS ORDERED: Furosemide 40 MG/4 ML VIAL ONE (21:09)
[2021-10-05] MEDS: Enoxaparin 40 MG/0.4 ML Syringe SUBCUT SCH (21:50)
[2021-10-05] MEDS: Folic Acid 1 MG Tab PO SCH (21:51)
[2021-10-05] MEDS: Thiamine 100 MG Tab PO SCH (21:51)
[2021-10-05] MEDS: Furosemide 40 MG/4 ML VIAL IVPUSH SCH (22:18)
[2021-10-05] MEDS: Albuterol/Ipratropium 3.0-0.5 MG/3 ML Neb Soln NEB SCH (22:26)
[2021-10-06] MEDS: Albuterol/Ipratropium 3.0-0.5 MG/3 ML Neb Soln NEB SCH ×5 (00:04→23:44)
[2021-10-06 07:01] LABS: BLOOD UREA NITROGEN,BUN 13 mg/dL (7.0-18.0); CARBON DIOXIDE,CO2 31.6 mmol/L (21.0-32.0); CHLORIDE,CL 99 mmol/L (98-107); GLUCOSE RANDOM 123 mg/dL (74-106); POTASSIUM,K 3.4 mmol/L (3.5-5.1); SODIUM,NA 139 mmol/L (136-148)
[2021-10-06] MEDS: Furosemide 40 MG/4 ML VIAL IVPUSH SCH ×2 (08:26→20:25)
[2021-10-06] MEDS: methylPREDNISolone Sodium Succinate 40 MG/1 ML SDV IVPUSH SCH (08:30)
[2021-10-06] MEDS: Enoxaparin 40 MG/0.4 ML Syringe SUBCUT SCH ×2 (08:35→20:25)
[2021-10-06] MEDS: Azithromycin 500 MG in Sodium Chloride 0.9% 250 ML IV SCH (08:36)
[2021-10-06] MEDS ORDERED: Potassium Chloride 20 MEQ Tab.ER PO ONE (13:15)
[2021-10-06] MEDS ORDERED: Magnesium Sulfate/Water 2 GM in Premix Bag 1 BAG IV ONE (13:15)
[2021-10-06] MEDS: Folic Acid 1 MG Tab PO SCH (20:24)
[2021-10-06] MEDS: Thiamine 100 MG Tab PO SCH (20:24)
[2021-10-07] MEDS: Albuterol/Ipratropium 3.0-0.5 MG/3 ML Neb Soln NEB SCH ×5 (04:06→23:05)
[2021-10-07 07:37] LABS: BLOOD UREA NITROGEN,BUN 18 mg/dL (7.0-18.0); CARBON DIOXIDE,CO2 31.6 mmol/L (21.0-32.0); CHLORIDE,CL 101 mmol/L (98-107); GLUCOSE RANDOM 106 mg/dL (74-106); SODIUM,NA 142 mmol/L (136-148)
[2021-10-07] MEDS: Carvedilol 3.125 MG Tab PO SCH (08:24)
[2021-10-07] MEDS: methylPREDNISolone Sodium Succinate 40 MG/1 ML SDV IVPUSH SCH (08:24)
[2021-10-07] MEDS: Furosemide 40 MG/4 ML VIAL IVPUSH SCH ×2 (08:29→20:01)
[2021-10-07] MEDS: Enoxaparin 40 MG/0.4 ML Syringe SUBCUT SCH ×2 (08:35→20:01)
[2021-10-07] MEDS: Azithromycin 500 MG in Sodium Chloride 0.9% 250 ML IV SCH (08:37)
[2021-10-07] MEDS ORDERED: Potassium Chloride Riders 40 MEQ in Premix Bag 1 BAG IV ONE (13:30)
[2021-10-07] MEDS: hydrALAZINE 20 MG/ML SDV IVPUSH PRN ×2 (13:54→18:26)
[2021-10-07] MEDS: Lisinopril 10 MG Tab PO SCH (13:54)
[2021-10-07] MEDS: amLODIPine 5 MG Tab PO SCH (18:34)
[2021-10-07] MEDS: LORazepam 2 MG/ML SDV IVPUSH PRN (18:36)
[2021-10-07] MEDS: Folic Acid 1 MG Tab PO SCH (20:02)
[2021-10-07] MEDS: Thiamine 100 MG Tab PO SCH (20:02)
[2021-10-07] MEDS: Carboxymethylcellulose Sodium 0.5% Ophth Soln 0.4 ML UD Box of 30 EYEBOTH PRN (20:12)
[2021-10-08] MEDS: Carboxymethylcellulose Sodium 0.5% Ophth Soln 0.4 ML UD Box of 30 EYEBOTH PRN (05:25)
[2021-10-08] MEDS: Albuterol/Ipratropium 3.0-0.5 MG/3 ML Neb Soln NEB SCH ×4 (05:33→20:31)
[2021-10-08 07:53] LABS: BLOOD UREA NITROGEN,BUN 21 mg/dL (7.0-18.0); CARBON DIOXIDE,CO2 32.5 mmol/L (21.0-32.0); CHLORIDE,CL 99 mmol/L (98-107); GLUCOSE RANDOM 122 mg/dL (74-106); POTASSIUM,K 2.9 mmol/L (3.5-5.1); SODIUM,NA 137 mmol/L (136-148)
[2021-10-08] MEDS: Lisinopril 10 MG Tab PO SCH (09:34)
[2021-10-08] MEDS: methylPREDNISolone Sodium Succinate 40 MG/1 ML SDV IVPUSH SCH (09:35)
[2021-10-08] MEDS: Carvedilol 3.125 MG Tab PO SCH (09:35)
[2021-10-08] MEDS: amLODIPine 5 MG Tab PO SCH (09:35)
[2021-10-08] MEDS: Furosemide 40 MG/4 ML VIAL IVPUSH SCH ×2 (09:40→20:34)
[2021-10-08] MEDS: Enoxaparin 40 MG/0.4 ML Syringe SUBCUT SCH ×2 (09:45→20:34)
[2021-10-08] MEDS: Azithromycin 500 MG in Sodium Chloride 0.9% 250 ML IV SCH (09:46)
[2021-10-08] MEDS ORDERED: Lisinopril 10 MG Tab PO ONE (10:07)
[2021-10-08] MEDS ORDERED: Sodium Chloride 0.9% 500 ML IV SCH (10:30)
[2021-10-08] MEDS ORDERED: Magnesium Oxide 400 MG Tab PO ONE (10:30)
[2021-10-08] MEDS ORDERED: Potassium Chloride 20 MEQ Tab.ER PO ONE (10:30)
[2021-10-08] MEDS ORDERED: Potassium Chloride Riders 40 MEQ in Premix Bag 1 BAG IV ONE (10:30)
[2021-10-08] MEDS ORDERED: Potassium Chloride Riders 20 MEQ in Premix Bag 1 BAG IV SCH (14:30)
[2021-10-08] MEDS: Folic Acid 1 MG Tab PO SCH (20:34)
[2021-10-08] MEDS: Thiamine 100 MG Tab PO SCH (20:35)
[2021-10-08] MEDS: hydrALAZINE 20 MG/ML SDV IVPUSH PRN (20:48)
[2021-10-08] MEDS: LORazepam 2 MG/ML SDV IVPUSH PRN (20:58)
[2021-10-08] MEDS ORDERED: Labetalol 100 MG/20 ML MDV IVPUSH PRN (23:37)
[2021-10-09] MEDS: Albuterol/Ipratropium 3.0-0.5 MG/3 ML Neb Soln NEB SCH ×2 (00:35→05:51)
[2021-10-09 06:50] LABS: BLOOD UREA NITROGEN,BUN 22 mg/dL (7.0-18.0); CARBON DIOXIDE,CO2 32.6 mmol/L (21.0-32.0); CHLORIDE,CL 99 mmol/L (98-107); GLUCOSE RANDOM 105 mg/dL (74-106); POTASSIUM,K 3.8 mmol/L (3.5-5.1); SODIUM,NA 137 mmol/L (136-148)
[2021-10-09 08:30] VITALS: PULSE 95
[2021-10-09] MEDS: Carvedilol 3.125 MG Tab PO SCH (08:31)
[2021-10-09] MEDS: amLODIPine 5 MG Tab PO SCH (08:31)
[2021-10-09] MEDS: methylPREDNISolone Sodium Succinate 40 MG/1 ML SDV IVPUSH SCH (08:32)
[2021-10-09] MEDS: Furosemide 40 MG/4 ML VIAL IVPUSH SCH (08:34)
[2021-10-09] MEDS: Enoxaparin 40 MG/0.4 ML Syringe SUBCUT SCH (08:34)
[2021-10-09] MEDS: Carboxymethylcellulose Sodium 0.5% Ophth Soln 0.4 ML UD Box of 30 EYEBOTH PRN (08:53)
[2021-10-09] MEDS ORDERED: Azithromycin 250 MG Tab PO SCH (09:00)
[2021-10-09] MEDS ORDERED: Lisinopril 10 MG Tab PO SCH (09:00)
[2021-10-09 12:21] VITALS: BP 180/95
== END 2021-10-09 12:30 | disposition home or self-care (01) | DRG 191 ==
LOC: MW.ED 10:26 → MW.MS 14:02
PROVIDERS: ADMIT Internal Medicine; ATTEND Internal Medicine
DX: J44.1 Chronic obstructive pulmonary disease with (acute) exacerbation (principal); F10.239 Alcohol dependence with withdrawal, unspecified; I11.0 Hypertensive heart disease with heart failure; I16.0 Hypertensive urgency; I50.9 Heart failure, unspecified; E78.00 Pure hypercholesterolemia, unspecified; G89.29 Other chronic pain; Z20.822 Contact with and (suspected) exposure to COVID-19; M54.9 Dorsalgia, unspecified; E87.6 Hypokalemia; E83.42 Hypomagnesemia; Z79.899 Other long term (current) drug therapy; Z91.14 Patient's other noncompliance with medication regimen; Z79.52 Long term (current) use of systemic steroids; Z91.048 Other nonmedicinal substance allergy status; Z79.51 Long term (current) use of inhaled steroids; Z91.040 Latex allergy status; Z91.09 Other allergy status, other than to drugs and biological substances; I25.2 Old myocardial infarction
CPT/HCPCS: 36415; 71045; 80053; 80061; 83735; 83880; 84484; 85025; 85610; 86850; 86900; 86901; 87635; 96374; 99285; A9270 ×6; J1940; 80048; 81003; 83036; 84100; 84132; 93005; 93010; 93306; 94640; 99222; 99231; 99232; 99238; 99291; 99292; J0360; J0456; J1650; J2060; J2920; J3475; J3480; J3490; J7050; J7620-GY; U0002

== ENCOUNTER 2022-03-12 00:14 | Emergency (ER) | payer MEDICARE, MEDICAID, OTHER ==
[2022-03-12] MEDS ORDERED: Sodium Chloride 0.9% 10 ML Syringe FLUSH PRN (00:26)
[2022-03-12] MEDS ORDERED: Sodium Chloride 0.9% 2.5 ML Syringe FLUSH PRN (00:26)
[2022-03-12 00:59] LABS: CARBON DIOXIDE,CO2 29.5 mmol/L (21.0-32.0)
[2022-03-12 01:18] LABS: CORONAVIRUS COVID-19 NAA NEGATIVE (NEGATIVE); INFLUENZA A NAA NEGATIVE (NEGATIVE); INFLUENZA B NAA NEGATIVE (NEGATIVE)
[2022-03-12 01:34] VITALS: BP 150/81; PULSE 93
== END 2022-03-12 01:40 | disposition home or self-care (01) ==
LOC: MW.ED 00:14
DX: R06.02 Shortness of breath (principal); E87.6 Hypokalemia; I11.0 Hypertensive heart disease with heart failure; I50.9 Heart failure, unspecified; J44.9 Chronic obstructive pulmonary disease, unspecified; Z91.048 Other nonmedicinal substance allergy status; Z91.040 Latex allergy status; Z79.899 Other long term (current) drug therapy; Z20.822 Contact with and (suspected) exposure to COVID-19
CPT/HCPCS: 0240U; 36415; 71045; 80053; 84484; 85025; 93005; 99285; J3490

== ENCOUNTER 2022-04-14 13:13 | Inpatient (IN) | payer MEDICARE, MEDICAID, OTHER ==
[2022-04-14] MEDS ORDERED: Sodium Chloride 0.9% 2.5 ML Syringe FLUSH PRN (13:21)
[2022-04-14] MEDS ORDERED: Sodium Chloride 0.9% 10 ML Syringe FLUSH PRN (13:21)
[2022-04-14] MEDS ORDERED: Albuterol/Ipratropium 3.0-0.5 MG/3 ML Neb Soln NEB ONE ×2 (13:24→15:13)
[2022-04-14 14:10] LABS: CARBON DIOXIDE,CO2 23.4 mmol/L (21.0-32.0); POTASSIUM,K 3.6 mmol/L (3.5-5.1)
[2022-04-14] MEDS ORDERED: Furosemide 40 MG/4 ML VIAL IVPUSH ONE (15:00)
[2022-04-14] MEDS ORDERED: methylPREDNISolone Sodium Succinate 125 MG/2 ML SDV IVPUSH ONE (15:00)
[2022-04-14 15:30] LABS: CORONAVIRUS COVID-19 NAA NEGATIVE (NEGATIVE); INFLUENZA A NAA NEGATIVE (NEGATIVE); INFLUENZA B NAA NEGATIVE (NEGATIVE); RESPIRATORY SYNCYTIAL VIR NAA NEGATIVE (NEGATIVE)
[2022-04-14] MEDS ORDERED: Polyethylene Glycol 3350 Powder 17 GM Packet PO PRN (15:46)
[2022-04-14] MEDS ORDERED: Ondansetron 4 MG/2 ML SDV IVPUSH PRN (15:46)
[2022-04-14] MEDS ORDERED: Acetaminophen 325 MG Tab PO PRN (15:46)
[2022-04-14] MEDS ORDERED: Non-Formulary Medication 1 Each (Budesonide/Formoterol Fumarate [Symbicort 80-4.5 Mcg Inha INH SCH (16:30)
[2022-04-14] MEDS ORDERED: Enoxaparin 40 MG/0.4 ML Syringe SUBCUT SCH (16:30)
[2022-04-14] MEDS ORDERED: LORazepam 2 MG/ML SDV IVPUSH PRN (16:45)
[2022-04-14 17:10] LABS: HEMOGLOBIN A1C 6.2 %
[2022-04-14] MEDS: Albuterol/Ipratropium 3.0-0.5 MG/3 ML Neb Soln NEB SCH ×2 (17:22→21:51)
[2022-04-14] MEDS: cefTRIAXone 1 GM in Sodium Chloride 0.9% 50 ML IV SCH (17:59)
[2022-04-14] MEDS: Carvedilol 6.25 MG Tab PO SCH (20:28)
[2022-04-15] MEDS: Albuterol/Ipratropium 3.0-0.5 MG/3 ML Neb Soln NEB SCH ×4 (03:31→22:42)
[2022-04-15 07:07] LABS: CARBON DIOXIDE,CO2 28.7 mmol/L (21.0-32.0); POTASSIUM,K 3.6 mmol/L (3.5-5.1)
[2022-04-15] MEDS: Furosemide 40 MG/4 ML VIAL IVPUSH SCH ×2 (07:51→14:28)
[2022-04-15] MEDS ORDERED: Non-Formulary Medication 1 Each (Lisinopril [Lisinopril] 40 MG Tablet) PO SCH (09:00)
[2022-04-15] MEDS ORDERED: Thiamine 100 MG in Sodium Chloride 0.9% 100 ML IV SCH (09:00)
[2022-04-15] MEDS: Lisinopril 10 MG Tab PO SCH (09:33)
[2022-04-15] MEDS: amLODIPine 5 MG Tab PO SCH (09:36)
[2022-04-15] MEDS: Carvedilol 6.25 MG Tab PO SCH ×2 (09:36→21:06)
[2022-04-15] MEDS: Spironolactone 25 MG Tab PO SCH (09:37)
[2022-04-15] MEDS: Thiamine 200 MG/2 ML MDV IVPUSH SCH (09:37)
[2022-04-15] MEDS: Folic Acid 1 MG/0.2 ML UD Syringe IV SCH (09:37)
[2022-04-15] MEDS: Enoxaparin 40 MG/0.4 ML Syringe SUBCUT SCH ×2 (10:50→22:41)
[2022-04-15] MEDS: Carboxymethylcellulose Sodium 0.5% Ophth Soln 0.4 ML UD Box of 30 EYEBOTH PRN ×2 (14:27→21:10)
[2022-04-15] MEDS: cefTRIAXone 1 GM in Sodium Chloride 0.9% 50 ML IV SCH (15:44)
[2022-04-15] MEDS ORDERED: atorvaSTATin 40 MG Tab PO SCH (21:00)
[2022-04-15] MEDS: BUDESONIDE INH SCH (21:06)
[2022-04-15] MEDS: FORMOTEROL FUMARATE INH SCH (21:06)
[2022-04-16] MEDS: Albuterol/Ipratropium 3.0-0.5 MG/3 ML Neb Soln NEB SCH ×2 (04:36→09:55)
[2022-04-16] MEDS: BUDESONIDE INH SCH (06:27)
[2022-04-16] MEDS: FORMOTEROL FUMARATE INH SCH (06:27)
[2022-04-16 07:19] LABS: CARBON DIOXIDE,CO2 29.5 mmol/L (21.0-32.0); POTASSIUM,K 3.4 mmol/L (3.5-5.1)
[2022-04-16] MEDS ORDERED: Potassium Chloride 20 MEQ Tab.ER PO ONE (07:27)
[2022-04-16] MEDS: Spironolactone 25 MG Tab PO SCH (08:09)
[2022-04-16] MEDS: Carvedilol 6.25 MG Tab PO SCH (08:09)
[2022-04-16] MEDS: Lisinopril 10 MG Tab PO SCH (08:09)
[2022-04-16] MEDS: amLODIPine 5 MG Tab PO SCH (08:10)
[2022-04-16] MEDS: Furosemide 40 MG/4 ML VIAL IVPUSH SCH (08:11)
[2022-04-16] MEDS: Folic Acid 1 MG/0.2 ML UD Syringe IV SCH (08:11)
[2022-04-16] MEDS: Thiamine 200 MG/2 ML MDV IVPUSH SCH (08:12)
[2022-04-16 08:15] VITALS: BP 131/67
[2022-04-16 10:00] VITALS: PULSE 64
== END 2022-04-16 11:28 | disposition home or self-care (01) | DRG 291 ==
LOC: MW.ED 13:13 → MW.MS 15:15
PROVIDERS: ADMIT Internal Medicine; ATTEND Internal Medicine
DX: I11.0 Hypertensive heart disease with heart failure (principal); R09.02 Hypoxemia; I50.33 Acute on chronic diastolic (congestive) heart failure; I50.1 Left ventricular failure, unspecified; E78.00 Pure hypercholesterolemia, unspecified; J96.21 Acute and chronic respiratory failure with hypoxia; Z86.74 Personal history of sudden cardiac arrest; L03.115 Cellulitis of right lower limb; J44.1 Chronic obstructive pulmonary disease with (acute) exacerbation; Z79.51 Long term (current) use of inhaled steroids; Z79.52 Long term (current) use of systemic steroids; Z79.899 Other long term (current) drug therapy; F10.939 Alcohol use, unspecified with withdrawal, unspecified; Z20.822 Contact with and (suspected) exposure to COVID-19; E78.5 Hyperlipidemia, unspecified; F17.210 Nicotine dependence, cigarettes, uncomplicated; Z91.14 Patient's other noncompliance with medication regimen; Z91.040 Latex allergy status; Z88.8 Allergy status to other drugs, medicaments and biological substances; Z97.3 Presence of spectacles and contact lenses; I25.2 Old myocardial infarction; Z86.16 Personal history of COVID-19; Z90.89 Acquired absence of other organs; Z98.890 Other specified postprocedural states; N62 Hypertrophy of breast
CPT/HCPCS: 0241U; 36415; 71045; 80053; 80061; 81001; 82607; 83036; 83605; 83735; 83880; 84100; 84443; 84484; 85025; 87040; 93005; 94640; 96374; 96375; 99285-25; A9270-GY; J0696; J1650; J1940; J2930; J3411; J3490; J7620-GY

== ENCOUNTER 2022-06-09 21:28 | Emergency (ER) | payer MEDICARE, MEDICAID, OTHER ==
[2022-06-09] MEDS ORDERED: Albuterol/Ipratropium 3.0-0.5 MG/3 ML Neb Soln NEB ONE (21:29)
[2022-06-09] MEDS ORDERED: methylPREDNISolone Sodium Succinate 125 MG/2 ML SDV IVPUSH ONE (21:29)
[2022-06-09] MEDS ORDERED: hydrALAZINE 20 MG/ML SDV IVPUSH ONE ×2 (21:32→22:15)
[2022-06-09 22:04] LABS: BLOOD UREA NITROGEN,BUN 10 mg/dL (7.0-18.0); CARBON DIOXIDE,CO2 27.8 mmol/L (21.0-32.0); CHLORIDE,CL 99 mmol/L (98-107); ESTIMATED GFR 95 mL/min (>60); GLUCOSE RANDOM 96 mg/dL (74-106); POTASSIUM,K 3.5 mmol/L (3.5-5.1); SODIUM,NA 139 mmol/L (136-148)
[2022-06-09 22:26] VITALS: BP 177/84; PULSE 84
[2022-06-09 22:33] LABS: CORONAVIRUS COVID-19 NAA NEGATIVE (NEGATIVE); INFLUENZA A NAA NEGATIVE (NEGATIVE); INFLUENZA B NAA NEGATIVE (NEGATIVE)
== END 2022-06-09 22:47 | disposition home or self-care (01) ==
LOC: MW.ED 21:28
DX: J44.1 Chronic obstructive pulmonary disease with (acute) exacerbation (principal); I11.0 Hypertensive heart disease with heart failure; I50.9 Heart failure, unspecified; I25.2 Old myocardial infarction; E78.00 Pure hypercholesterolemia, unspecified; Z20.822 Contact with and (suspected) exposure to COVID-19; Z91.040 Latex allergy status; Z88.8 Allergy status to other drugs, medicaments and biological substances; Z79.899 Other long term (current) drug therapy
CPT/HCPCS: 0240U; 36415; 71045; 73502; 80053; 80307; 83735; 84484; 85025; 93005; 96374; 96375; 99285; J0360; J2930; J7620-GY

== ENCOUNTER 2022-06-12 04:26 | Emergency (ER) | payer MEDICARE, MEDICAID, OTHER ==
[2022-06-12 04:41] VITALS: BP 194/118; PULSE 79
== END 2022-06-12 04:41 ==
LOC: MW.ED 04:26
DX: Z02.89 Encounter for other administrative examinations (principal); I11.0 Hypertensive heart disease with heart failure; I50.9 Heart failure, unspecified; E78.00 Pure hypercholesterolemia, unspecified; J44.9 Chronic obstructive pulmonary disease, unspecified; Z91.048 Other nonmedicinal substance allergy status; Z91.040 Latex allergy status; Z79.899 Other long term (current) drug therapy; Z86.16 Personal history of COVID-19
CPT/HCPCS: 99283

== ENCOUNTER 2022-06-13 02:26 | Emergency (ER) | payer MEDICARE, MEDICAID, OTHER ==
[2022-06-13 02:42] VITALS: BP 162/105
[2022-06-13 03:03] VITALS: PULSE 88
== END 2022-06-13 03:02 | disposition home or self-care (01) ==
LOC: MW.ED 02:26
DX: I11.0 Hypertensive heart disease with heart failure (principal); I50.9 Heart failure, unspecified; I25.2 Old myocardial infarction; F17.210 Nicotine dependence, cigarettes, uncomplicated; J44.9 Chronic obstructive pulmonary disease, unspecified; Z91.040 Latex allergy status; Z91.09 Other allergy status, other than to drugs and biological substances
CPT/HCPCS: 82947; 99283

== ENCOUNTER 2022-06-13 17:19 | Emergency (ER) | payer MEDICARE, MEDICAID, OTHER ==
[2022-06-13] MEDS ORDERED: hydrALAZINE 20 MG/ML SDV IVPUSH STA (18:34)
[2022-06-13] MEDS ORDERED: Sodium Chloride 0.9% 1,000 ML IV STA (18:36)
[2022-06-13] MEDS ORDERED: Carvedilol 6.25 MG Tab PO STA (18:58)
[2022-06-13] MEDS ORDERED: LORazepam 2 MG/ML SDV IVPUSH STA (20:03)
[2022-06-13 23:27] VITALS: BP 158/92; PULSE 87
== END 2022-06-13 21:12 ==
LOC: MW.ED 17:19
DX: I11.0 Hypertensive heart disease with heart failure (principal); E78.00 Pure hypercholesterolemia, unspecified; I50.9 Heart failure, unspecified; I25.2 Old myocardial infarction; J44.9 Chronic obstructive pulmonary disease, unspecified; Z91.14 Patient's other noncompliance with medication regimen; Z91.040 Latex allergy status; Z91.048 Other nonmedicinal substance allergy status; Z79.899 Other long term (current) drug therapy; Z86.16 Personal history of COVID-19
CPT/HCPCS: 96360; 99282; A9270; J0360; J2060; J7030; 82947

== ENCOUNTER 2022-06-25 13:11 | Emergency (ER) | payer MEDICARE, MEDICAID, OTHER ==
[2022-06-25 14:21] VITALS: BP 165/98; PULSE 77
[2022-06-25 15:24] LABS: CARBON DIOXIDE,CO2 27.1 mmol/L (21.0-32.0); POTASSIUM,K 4.1 mmol/L (3.5-5.1)
== END 2022-06-25 16:57 ==
LOC: MW.ED 13:11
DX: R41.3 Other amnesia (principal); E78.00 Pure hypercholesterolemia, unspecified; I10 Essential (primary) hypertension; I25.2 Old myocardial infarction; J44.9 Chronic obstructive pulmonary disease, unspecified; Z91.040 Latex allergy status; Z91.048 Other nonmedicinal substance allergy status; Z79.899 Other long term (current) drug therapy; Z86.16 Personal history of COVID-19; W19.XXXA Unspecified fall, initial encounter
CPT/HCPCS: 36415; 70450; 70450-26; 80048; 85025; 99282; 99285

== ENCOUNTER 2023-11-19 16:14 | Emergency (ER) | payer MEDICARE, OTHER ==
[2023-11-19 18:24] LABS: BASOPHILS ABSOLUTE AUTO 0.05 K/uL (0.00-0.20); BASOPHILS PERCENT AUTO 0.7 % (0.0-1.0); EOSINOPHILS PERCENT AUTO 2.7 % (0.0-6.0); HEMATOCRIT 38.8 % (42.0-52.0); HEMOGLOBIN 13.4 g/dL (14.0-18.0); IMMATURE GRAN ABSOLUTE AUTO 0.02 K/uL (0.00-0.05); IMMATURE GRAN PERCENT AUTO 0.3 % (0.0-0.4); LYMPHOCYTES ABSOLUTE AUTO 2.44 K/uL (1.00-4.80); LYMPHOCYTES PERCENT AUTO 32.5 % (24.0-44.0); MEAN CORPUSCULAR HEMOGLOBIN 30.2 pg (28.0-32.0); MEAN CORPUSCULAR HGB CONC 34.5 g/dL (32.0-36.0); MEAN CORPUSCULAR VOLUME 87.6 fL (83.0-99.0); MEAN PLATELET VOLUME 8.9 fL (9.4-12.4); MONOCYTES ABSOLUTE AUTO 0.71 K/uL (0.00-0.80); MONOCYTES PERCENT AUTO 9.5 % (0.0-8.0); NEUTROPHILS ABSOLUTE AUTO 4.08 K/uL (1.80-7.70); NEUTROPHILS PERCENT AUTO 54.3 % (41.0-71.0); PLATELET COUNT,PLT 260 K/uL (150-400); RED BLOOD CELL COUNT 4.43 M/uL (4.52-5.90)
[2023-11-19] MEDS: Ketorolac 30 MG/ML SDV IVPUSH ONE (18:29)
[2023-11-19 18:30] LABS: APPEARANCE,URINE CLEAR; BILIRUBIN,URINE NEGATIVE (NEGATIVE); COLOR,URINE YELLOW; GLUCOSE,URINE NEGATIVE (NEGATIVE); KETONES,URINE NEGATIVE (NEGATIVE); LEUKOCYTE ESTERASE,URINE NEGATIVE (NEGATIVE); NITRITE,URINE NEGATIVE (NEGATIVE); OCCULT BLOOD,URINE NEGATIVE (NEGATIVE); PROTEIN,URINE NEGATIVE (NEGATIVE); UROBILINOGEN,URINE 0.2 EU/dL (<2.0)
[2023-11-19] MEDS: Sodium Chloride 0.9% 1,000 ML IV ONE ×2 (18:33→19:04)
[2023-11-19 18:59] LABS: A/G RATIO 0.9 (0.9-1.6); ALBUMIN 3.2 g/dL (3.4-5.0); BILIRUBIN TOTAL 0.4 mg/dL (0.2-1.0); CALCIUM 8.7 mg/dL (8.5-10.1); CARBON DIOXIDE,CO2 26.5 mmol/L (21.0-32.0); EST CRCL DRUG DOSING (CG) 76.35 mL/min; POTASSIUM,K 3.9 mmol/L (3.5-5.1); PROTEIN TOTAL,TP 6.7 g/dL (6.4-8.2)
[2023-11-19] MEDS: Iopamidol 755 MG/ML 500 ML Multipack Bottle IVPUSH STA (19:22)
[2023-11-19 22:29] VITALS: BP 180/92; PULSE 66
== END 2023-11-19 21:03 | disposition home or self-care (01) ==
LOC: MW.ED 16:14
DX: K52.9 Noninfective gastroenteritis and colitis, unspecified (principal); I10 Essential (primary) hypertension; J45.909 Unspecified asthma, uncomplicated; Z91.040 Latex allergy status; Z91.048 Other nonmedicinal substance allergy status; Z75.8 Other problems related to medical facilities and other health care
CPT/HCPCS: 36415; 74177; 80053; 81003; 85025; 93970; 96361; 96374; 99284; J1885; J7030; Q9967

== ENCOUNTER 2024-07-10 21:07 | Emergency (ER) | payer MEDICAID, MEDICARE, OTHER ==
[2024-07-10] MEDS: Ketorolac 60 MG/2 ML SDV IM ONE (21:52)
[2024-07-10 22:40] VITALS: BP 184/98; PULSE 94
== END 2024-07-10 22:40 | disposition home or self-care (01) ==
LOC: MW.ED 21:07
DX: S70.02XA Contusion of left hip, initial encounter (principal); I11.0 Hypertensive heart disease with heart failure; I50.9 Heart failure, unspecified; I25.2 Old myocardial infarction; J44.9 Chronic obstructive pulmonary disease, unspecified; Z79.899 Other long term (current) drug therapy; Z91.040 Latex allergy status; Z91.048 Other nonmedicinal substance allergy status; W00.0XXA Fall on same level due to ice and snow, initial encounter
CPT/HCPCS: 73502; 96372; 99283; J1885

== ENCOUNTER 2024-08-23 17:14 | Emergency (ER) | payer MEDICAID, MEDICARE ==
[2024-08-23] MEDS: amLODIPine 5 MG Tab PO ONE (18:01)
[2024-08-23 18:12] LABS: BASOPHILS ABSOLUTE AUTO 0.05 K/uL (0.00-0.20); BASOPHILS PERCENT AUTO 0.5 % (0.0-1.0); EOSINOPHILS ABSOLUTE AUTO 0.22 K/uL (0.00-0.45); EOSINOPHILS PERCENT AUTO 2.3 % (0.0-6.0); HEMATOCRIT 40.9 % (42.0-52.0); HEMOGLOBIN 13.8 g/dL (14.0-18.0); IMMATURE GRAN ABSOLUTE AUTO 0.03 K/uL (0.00-0.05); IMMATURE GRAN PERCENT AUTO 0.3 % (0.0-0.4); LYMPHOCYTES ABSOLUTE AUTO 1.99 K/uL (1.00-4.80); LYMPHOCYTES PERCENT AUTO 20.6 % (24.0-44.0); MEAN CORPUSCULAR HEMOGLOBIN 28.1 pg (28.0-32.0); MEAN CORPUSCULAR HGB CONC 33.7 g/dL (32.0-36.0); MEAN CORPUSCULAR VOLUME 83.3 fL (83.0-99.0); MEAN PLATELET VOLUME 9.3 fL (9.4-12.4); MONOCYTES PERCENT AUTO 8.3 % (0.0-8.0); NEUTROPHILS ABSOLUTE AUTO 6.59 K/uL (1.80-7.70); PLATELET COUNT,PLT 278 K/uL (150-400); RED BLOOD CELL COUNT 4.91 M/uL (4.52-5.90); WHITE BLOOD CELL COUNT,WBC 9.68 K/uL (3.9-11.3)
[2024-08-23 18:46] LABS: A/G RATIO 0.8 (0.9-1.6); ALBUMIN 3.1 g/dL (3.4-5.0); BILIRUBIN TOTAL 0.5 mg/dL (0.2-1.0); CALCIUM 8.5 mg/dL (8.5-10.1); CARBON DIOXIDE,CO2 28.9 mmol/L (21.0-32.0); EST CRCL DRUG DOSING (CG) 76.35 mL/min; POTASSIUM,K 3.9 mmol/L (3.5-5.1)
[2024-08-23 19:48] VITALS: BP 174/92; PULSE 98
== END 2024-08-23 19:48 ==
LOC: MW.ED 17:14
DX: R07.9 Chest pain, unspecified (principal); I11.0 Hypertensive heart disease with heart failure; I50.9 Heart failure, unspecified; E78.00 Pure hypercholesterolemia, unspecified; I25.2 Old myocardial infarction; J44.89 Other specified chronic obstructive pulmonary disease; F17.210 Nicotine dependence, cigarettes, uncomplicated; Z75.8 Other problems related to medical facilities and other health care; Z91.040 Latex allergy status; Z91.048 Other nonmedicinal substance allergy status; Z79.899 Other long term (current) drug therapy
CPT/HCPCS: 36415; 71045; 80053; 83880; 84484; 85025; 93005; 99285; A9270; 99283

== ENCOUNTER 2024-08-29 10:34 | Emergency (ER) | payer MEDICARE ==
[2024-08-29] MEDS: Albuterol/Ipratropium 3.0-0.5 MG/3 ML Neb Soln NEB ONE (11:11)
[2024-08-29 11:22] LABS: HEMATOCRIT 46.8 % (42.0-52.0); HEMOGLOBIN 15.9 g/dL (14.0-18.0); MEAN CORPUSCULAR HEMOGLOBIN 27.9 pg (28.0-32.0); MEAN CORPUSCULAR VOLUME 82.1 fL (83.0-99.0); MEAN PLATELET VOLUME 8.5 fL (9.4-12.4); PLATELET COUNT,PLT 229 K/uL (150-400); WHITE BLOOD CELL COUNT,WBC 5.22 K/uL (3.9-11.3)
[2024-08-29 11:40] LABS: BAND PERCENT MAN 2 %; SEG NEUTROPHILS ABSOLUTE MAN 2.56 K/uL (1.80-7.70); SEG NEUTROPHILS PERCENT MAN 49 % (41-71)
[2024-08-29 11:41] LABS: BASOPHILS ABSOLUTE MAN 0.05 K/uL (0.00-0.20); BASOPHILS PERCENT MAN 1 % (0-1); LYMPHOCYTES ABSOLUTE MAN 1.51 K/uL (1.00-4.80); LYMPHOCYTES PERCENT MAN 29 % (24-44); MONOCYTES ABSOLUTE MAN 0.94 K/uL (0.00-0.80); MONOCYTES PERCENT MAN 18 % (0-8); MYELOCYTE ABSOLUTE MAN 0.05; MYELOCYTE PERCENT MAN 1 %
[2024-08-29 11:51] LABS: A/G RATIO 0.8 (0.9-1.6); ALBUMIN 3.4 g/dL (3.4-5.0); BILIRUBIN TOTAL 0.4 mg/dL (0.2-1.0); CALCIUM 8.9 mg/dL (8.5-10.1); CARBON DIOXIDE,CO2 26.2 mmol/L (21.0-32.0); EST CRCL DRUG DOSING (CG) 76.35 mL/min; POTASSIUM,K 3.8 mmol/L (3.5-5.1); PROTEIN TOTAL,TP 7.6 g/dL (6.4-8.2)
[2024-08-29] MEDS: Iopamidol 755 MG/ML 500 ML Multipack Bottle IVPUSH STA (12:29)
[2024-08-29 13:21] VITALS: BP 153/93; PULSE 103
== END 2024-08-29 13:27 ==
LOC: MW.ED 10:34
DX: J18.9 Pneumonia, unspecified organism (principal); I11.0 Hypertensive heart disease with heart failure; I50.9 Heart failure, unspecified; I25.10 Atherosclerotic heart disease of native coronary artery without angina pectoris; J44.89 Other specified chronic obstructive pulmonary disease; Z87.891 Personal history of nicotine dependence; Z91.040 Latex allergy status; Z91.048 Other nonmedicinal substance allergy status; Z79.899 Other long term (current) drug therapy
CPT/HCPCS: 36415; 71046; 71275; 80053; 83880; 84484; 85025; 85379; 93005; 94640; 99285; A9270; Q9967